=== PATIENT | female | born 1950 | race Caucasian/White ===

== ENCOUNTER 2018-02-22 08:34 | Inpatient (IN) | payer MEDICARE, OTHER ==
--- NOTE | 2018-02-14 21:14 | HP ---
HISTORY AND PHYSICAL: DATE OF ADMISSION/SURGERY: 02/22/18 DATE OF OFFICE VISIT: 02/12/18 SURGEON: Wendy Burk MD * (DICTATED BY TRISTON WILSON) PROCEDURE: Right total hip arthroplasty. CHIEF COMPLAINT: Right hip pain. HISTORY OF PRESENT ILLNESS: Ms. Mccarthy is a 68-year-old female with end-stage osteoarthritis of the right hip. She has failed conservative treatment and elected to proceed with a right total hip arthroplasty, which is scheduled for 02/22/[address] Burk. PAST MEDICAL HISTORY: High cholesterol, sleep apnea, and hypothyroidism. PAST SURGICAL HISTORY: Left total hip arthroplasty, partial thyroidectomy, tonsillectomy, and . CURRENT MEDICATIONS: 1. Vitamin C. 2. Vitamin D3. 3. Vitamin B12. 4. Levothyroxine 50 mcg daily. 5. Glucosamine and chondroitin. 6. Multivitamin. 7. Calcium with vitamin D. 8. Zinc. 9. Benadryl. ALLERGIES: TETRACYCLINE, FISH-DERIVED PRODUCTS, and CATS. FAMILY HISTORY: Coronary artery disease. SOCIAL HISTORY: She is a 68-year-old female. She lives alone. She does not smoke, use drugs, use occasional alcohol. REVIEW OF SYSTEMS: A complete 14-point review of systems was reviewed with the patient, positive for hypothyroidism. She denies history of DVT, PE, hepatitis , HIV or anesthesia problems PHYSICAL EXAMINATION GENERAL: She is well developed, well nourished, in no acute distress. VITAL SIGNS: She stands 5 feet 3 inches tall, weighs 180 pounds. Her blood pressure is 118/74 and heart rate 76. HEENT: Normocephalic, atraumatic. NECK: Supple. No palpable lymph nodes. PULMONARY: The lungs are clear to auscultation bilaterally. CARDIO: Regular rate and rhythm. Strong S1 and S2. ABDOMEN: Soft, nontender, and nondistended. NEUROLOGIC: Alert and oriented x3. MUSCULOSKELETAL: Right lower extremity, the skin is intact. There are no open wounds or abrasions. Walks with an antalgic type gait. Has decreased internal and external rotation of the right hip. 2+ dorsalis pedis pulses, intact sensation, and her lower extremity muscle group strengths are intact at 5/5. She has 0 degrees internal rotation, 30 degrees of external rotation. ASSESSMENT AND PLAN: Ms. Mccarthy is a 68-year-old female with severe end- stage osteoarthritis of the right hip. She has failed conservative treatment and elected to proceed with a right total hip arthroplasty, which is scheduled for 02/22/[address] Burk discussed the risks and benefits of the surgery on today's visit and all of her questions were answered. She will follow up with Dr. Burk 2 weeks after the surgery. TRISTON WILSON [id number]/CPS #: [id number] MTDD
[~2018-02-22 08:34] MED LIST: Buffered Lidocaine 0.9% SYRIN* 5 ML/SYR SYRINGE INTRADERM ONE
[2018-02-22] MEDS ORDERED: fentaNYL* 50 MCG/ML 2 ML VIAL (100 MCG VIAL) ONE (08:38)
[2018-02-22] MEDS ORDERED: Midazolam* 1 MG/ML 2 ML VIAL (2 MG) ONE (08:38)
--- OUTSIDE RECORDS SUMMARY | 2018-02-22 08:41 | XMS REPORT ---
:1950 External Reference #:[id number] Author Organization [facility] Address [address] [place] [address] [place] [address] Phone [phone] Care Team Providers Name Role Phone Lawson Mckeon MD Primary Care Physician Unavailable Payers Type Date Identification Numbers Payment Provider Subscriber Commercial Expires: Policy Number: [id number] sofatronicCory Meeta Aleman 2014 Group Number: [id number] PayID: [place] [address] [facility] Part B Policy Number: [id number] Medicare Meeta lAeman PayID: [id number] [address] [place] [address] Commercial Effective: Policy Number: Lifetime Benefit Meeta Isidro 2014 [id number] Solution Fabio Group Number: [id number] [address] [address] PayID: UMBERTO Sarmiento [id number] Problems Date Description Provider Status Onset: 02/01/2016 Dyssomnia Melissa Sutherland DNP, RN, Active GENERAL INTERNIST AND PHYSICIAN LEADER-BC Onset: 02/01/2016 Snoring Melissa Sutherland DNP, RN, Active GENERAL INTERNIST AND PHYSICIAN LEADER-BC Onset: 03/29/2016 Obstructive sleep apnea syndrome Melissa Sutherland DNP, RN, Active GENERAL INTERNIST AND PHYSICIAN LEADER-BC Onset: 01/08/2018 Localized, primary osteoarthritis Wendy Burk M.D. Active Onset: 01/08/2018 Localized, primary osteoarthritis Wendy Burk M.D. Active of the pelvic region and thigh Family History Date Family Member(s) Problem(s) Comments General Heart Disease General Cancer General arthritis Father to heart disease age 35 years [place] Mother age 68 after surgery for diverticulitis Siblings 1 believes to be healthy Social History Type Date Description Comments Marital Status Lives With Alone Occupation Retired School Psychologist Cigarette Use Never Smoked Cigarettes ETOH Use Currently consumes alcohol ETOH Use Occasionally consumes alcohol Smoking Patient has never smoked Recreational Drug Use Denies Drug Use Daily Caffeine Consumes on average 2 cups of regular coffee per day Exercise Type/Frequency Exercises sporadically Allergies, Adverse Reactions, Alerts Date Description Reaction Status Severity Comments 12/03/2014 Tetracycline active 11/28/2017 Fish-Derived Products Throat "bumpy" on active From eating fish inside 11/28/2017 Cat Red, watery eyes active from contact Medications Medication Date Status Form Strength Qnty SIG Indications Ordering Provider Amoxicillin 07/01/ Active Capsules 500mg 4 tablets 1 Unknown 2016 hour before dental work Vitamin C 01/28/ Active Tablets 500mg 1 by mouth Unknown 2015 every day Vitamin D3 01/28/ Active Tablets 1000Unit 1 by mouth Unknown 2015 every day Vitamin B12 01/28/ Active 1 by mouth Unknown 2015 every day Levothyroxine / Active Tablets 50mcg 1 by mouth Unknown Sodium 0000 every day Glucosamine & 00/ Active Packet 2520-9829- Unknown Chondroiti N 0000 800mg-mg-U nit Multi-Vitamin 0000/ Active Tablets 1 by mouth Unknown 0000 every day Calcium 0000/ Active Tablets 500-125mg- 1 by mouth Unknown 500/Vitamin D 0000 Unit every day Zinc Gluconate 00/ Active Tablets 50mg take one Unknown 0000 tab with meals as needed Benadryl / Active Tablets 25mg 1 by mouth Unknown Allergy 0000 as needed Pepcid Complete 01/28/ Hx Chewtabs 10800-165 as directed Unknown 2016 - mg 2015 Probiotic 01/28/ Hx Capsules 1 by mouth Unknown 2015 - every day 2017 Aspir-81 01/28/ Hx Tablets DR 81mg 1 by mouth Unknown 2015 - every day 2017 Joint Smoother 01/28/ Hx twice a day Unknown 2015 - by mouth 2015 Nystatin / Hx Cream [id number] topically Unknown 0000 - /GM twice a day 01/28/ as needed 2015 Aleve / Hx Tablets 220mg as needed Unknown 0000 - 2015 [place] 3 / Hx Unknown - 2017 Medications Administered in Office Medication Date Status Form Strength Qnty SIG Indications Ordering Provider Depomedrol Administered Injection Wendy 40MG Ramón Burk M.D. Vital Signs Date Vital Result Comment 02/12/2018 Height 63 inches 5'3" Weight 179.00 lb Heart Rate 76 /min BP Systolic 118 mmHg BP Diastolic 74 mmHg BMI (Body Mass Index) 31.7 kg/m2 01/22/2018 Height 63 inches 5'3" Heart Rate 72 /min BP Systolic Sitting 122 mmHg BP Diastolic Sitting 76 mmHg Respiratory Rate 16 /min Body Temperature 98.7 F Pain Level 6 intermittent/R hip 01/08/2018 Height 63 inches 5'3" Weight 180.00 lb Heart Rate 72 /min BP Systolic 134 mmHg BP Diastolic 82 mmHg BMI (Body Mass Index) 31.9 kg/m2 11/28/2017 Height 63 inches 5'3" Weight 179.25 lb Heart Rate 72 /min BP Systolic Sitting 130 mmHg Lue reg cuff BP Diastolic Sitting 74 mmHg Lue reg cuff Respiratory Rate 16 /min O2 % BldC Oximetry 95 % On Ra BMI (Body Mass Index) 31.7 kg/m2 09/18/2017 Heart Rate 73 /min BP Systolic 128 mmHg BP Diastolic 72 mmHg Respiratory Rate 16 /min Body Temperature 98.0 F Pain Level 4 11/02/2016 Weight 190.00 lb Heart Rate 72 /min occassional irreg rhythm BP Systolic Sitting 128 mmHg BP Diastolic Sitting 72 mmHg Respiratory Rate 14 /min 07/04/2016 Height 62 inches 5'2" Weight 186.00 lb Heart Rate 80 /min BP Systolic Sitting 130 mmHg BP Diastolic Sitting 72 mmHg Respiratory Rate 14 /min O2 % BldC Oximetry 97 % BMI (Body Mass Index) 34.0 kg/m2 05/30/2016 Height 62 inches 5'2" Weight 187.00 lb Heart Rate 71 /min BP Systolic Sitting 126 mmHg BP Diastolic Sitting 74 mmHg Respiratory Rate 15 /min O2 % BldC Oximetry 97 % BMI (Body Mass Index) 34.2 kg/m2 03/29/2016 Height 64 inches 5'4" Weight 188.00 lb Heart Rate 72 /min BP Systolic 124 mmHg BP Diastolic 78 mmHg Body Temperature 14.0 F O2 % BldC Oximetry 98 % BMI (Body Mass Index) 32.3 kg/m2 02/01/2016 Height 64 inches 5'4" Weight 188.12 lb Heart Rate 76 /min BP Systolic Sitting 132 mmHg BP Diastolic Sitting 74 mmHg Respiratory Rate 16 /min O2 % BldC Oximetry 97 % BMI (Body Mass Index) 32.3 kg/m2 Neck Circumference in inches 14 02/23/2015 Height 63 inches 5'3" Weight 185.00 lb Pain Level 7 BMI (Body Mass Index) 32.8 kg/m2 01/19/2015 Height 63 inches 5'3" Weight 185.00 lb Pain Level 2 BMI (Body Mass Index) 32.8 kg/m2 12/03/2014 Height 63 inches 5'3" Weight 187.00 lb Heart Rate 76 /min BP Systolic 120 mmHg BP Diastolic 70 mmHg Pain Level 8 BMI (Body Mass Index) 33.1 kg/m2 Results Test Date Test Result H/L Range Note Inr/Protime 02/12/2018 Inr 0.86 0.77-1.02 1 Laboratory test finding 02/12/2018 Partial Thrombo 28.1 seconds 26.0- 36.3 1, 2 Time PTT Urinalysis Profile 02/12/2018 Urine Color Yellow 1 Urine Appearance Clear 1 Urine Specific [place] 1.011 1.010-1.030 1 Urine pH 5.0 5-9 1 Urine Urobilinogen Negative Negative 1 Urine Ketones Negative Negative 1 Urine Protein Negative Negative 1 Urine Leukocytes Negative Negative 1 Urine Blood Negative Negative 1 Urine Nitrite Negative Negative 1 Urine Bilirubin Negative Negative 1 Urine Glucose Negative Negative 1 Type & Screen 02/12/2018 Patient Blood Type O Positive 1 Antibody Screen NEGATIVE 1 Urine Culture And Sensitivities 02/12/2018 Urine Culture SEE RESULT BELOW 1, 3 1 AA 02/22 2 AA 02/22 3 SEE RESULT BELOW Name: MEETA ALEMAN : [address]: Wendy Burk MD Acct: [id number] Unit: [id number] AGE: 68 Location: [facility] Re02/12/18 SEX: F Status: REG REF SPEC: [id number] LORNA: 02/12/18-[address]: Wendy Burk MD REQ: [id number] RECD: 02/12/18 STATUS: COMP _ SOURCE: URINE SPDESC: ORDERED: Urine Culture COMMENTS: MARISOL 02/22 QUERIES: Urine Source: Clean Catch Procedure Result Reported Site Urine Culture Final 02/13/18- 1354 ML No Growth (<1,000 CFU/mL) * ML - Main Lab . END OF REPORT DEPARTMENT OF PATHOLOGY, [address] [place] [address] John Cline M.D. Director [facility] # [id number] Procedures Date CPT Code Description Status 01/08/2018 27163 Inject/Drain Joint/Bursa Major W/O US Completed 02/22/2016 08410 Sleep Study Unattended,HRT Rate,Oxygen Sat,Resp Completed Effort/Airflow 01/11/2016 01936 Holter Monitor Review (24 hr)dr review & interp only Completed 01/05/2016 94524 ECG Monitor/Recording W/Visual Superimposition Scanning Completed 09/03/2012 49504 Rad Exam; Both Knees, Standing Ap Completed 09/03/2012 93568 Rad Shoulder Comp, Min. 2 Views Completed 03/16/2011 04541 Xray Knee 3 Views Completed 03/16/2011 43790 Xray Knee 3 Views Completed 10/11/2010 89386 ECHO Stress Test Incl Perf Contiuous ekg Monitoring Completed W/Phys Superv 07/27/2007 77728 EKG, Interpretation Only Completed 07/27/2007 73151 EKG, Interpretation Only Completed Encounters Type Date Location Provider CPT E/M Dx Office Visit 01/22/2018 [facility] Wendy Burk M.D. 28798 M25.551 3:30p Of [place] M16.11 M25.561 M25.562 M25.461 M25.462 M17.0 Office Visit 01/08/2018 2:30p [facility] Of Wendy Burk M.D. 67572 M25.551 C.MLena M16.11 M25.561 M25.562 M25.461 M25.462 M17.0 M17.12 Office Visit 11/28/2017 9:15a [facility] Melissa Sutherland, 90481 G47.33 Services Of Antonella SINGH, RN, [facility]-BC G47.00 Z68.31 Office Visit 09/18/2017 1:00p [facility] Of Patrick Blackburn, 71742 M16.11 [place] MCNAIR Office Visit 11/02/2016 10:00a [facility] Melissa Suthreland, 91917 G47.33 Services Of [facility] FRANCISCO, RN, GENERAL INTERNIST AND PHYSICIAN LEADER-BC G47.00 E66.9 Office Visit 07/04/2016 10:15a [facility] Melissa Sutherland, 09699 G47.33 Services Of [facility] FRANCISCO, RN, GENERAL INTERNIST AND PHYSICIAN LEADER-BC G47.00 Office Visit 05/30/2016 10:00a [facility] Melissa Sutherland, 28617 G47.33 Services Of [facility] FRANCISCO, RN, GENERAL INTERNIST AND PHYSICIAN LEADER-BC G47.00 Office Visit 03/29/2016 10:00a [facility] Melissa Sutherland, 20205 G47.33 Services Of [facility] SEVERIANO SINGH, GENERAL INTERNIST AND PHYSICIAN LEADER-SULLY G47.14 E66.9 Office Visit 02/01/2016 1:15p [facility] Melissa Sutherland, 27449 R06.83 Services Of [facility] SEVERIANO SINGH, GENERAL INTERNIST AND PHYSICIAN LEADER-BC G47.10 G47.9 R00.2 Office Visit 02/23/2015 1:30p [facility] Of Adriano Falk M.D. 78750 715.95 C.M.A. Office Visit 01/19/2015 12:45p [facility] Of Estela Pate, 79082 715.95 C.M.A. RPA-C Office Visit 12/03/2014 11:00a [facility] Of Adriano Falk M.D. 90526 715.95 C.M.A. 715.35 Office Visit 09/03/2012 8:00a [facility] Of Adriano Falk M.D. 33758 716.96 C.M.A. 726.10 Office Visit 03/16/2011 2:00p [facility] Of Adriano Falk M.D. 15711 716.96 C.M.A. Office Visit 10/11/2010 8:30a [facility] Nelson Turk, 92516 425.9 Lucia 786.50 785.1 271.3 Plan of Care Future Appointment(s):03/07/2018 11:15 am - Wendy Burk M.D. at [facility].02/22/2018 11:30 am - Thanh Mujica PA-C at [facility].02/22/2018 11:30 am - TRISTON Zuniga at [facility].02/22/2018 11:30 am - Wendy Burk M.D. at [facility].11/28/2018 9:15 am - Melissa Sutherland DNP, RN, GENERAL INTERNIST AND PHYSICIAN LEADER-BC at [facility]02/12/2018 - Wendy Burk M.D.M25.551 Pain in right hipFollow up:Follow up: 2 weeks after wyxilpjH13.11 Unilateral primary osteoarthritis, right hip
--- OUTSIDE RECORDS SUMMARY | 2018-02-22 08:41 | XMS REPORT ---
:1950 External Reference #:[id number] [facility] Address [address] [place] [address] [place] [address] Phone [phone] Care Team Providers Name Role Phone Lawson Mckeon MD Primary Care Physician Unavailable Payers Type Date Identification Numbers Payment Provider Subscriber Commercial Expires: Policy Number: [id number] Team-MatchCory Jessenia Mccarthy 2014 Group Number: [id number] PayID: [place] [address] [facility] Part B Policy Number: [id number] Medicare Jessenia Mccarthy PayID: [id number] [address] [place] [address] Commercial Effective: Policy Number: Lifetime Benefit Jessenia Isidro 2014 [id number] Solution Fabio Group Number: [id number] [address] [address] PayID: [place]MBERT[place] Sarmiento [phone] Problems Date Description Provider Status Onset: 02/01/2016 Dyssomnia Melissa Sutherland DNP, RN, Active [employer] BANKER-BC Onset: 02/01/2016 Snoring Melissa Sutherland DNP, RN, Active [employer] BANKER-BC Onset: 03/29/2016 Obstructive sleep apnea syndrome Melissa Sutherland DNP, RN, Active [employer] AC[employer]ISITIONS BANKER-BC Onset: 01/08/2018 Localized, primary osteoarthritis Wendy Burk M.D. Active Onset: 01/08/2018 Localized, primary osteoarthritis Wendy Burk M.D. Active of the pelvic region and thigh Family History Date Family Member(s) Problem(s) Comments General Heart Disease General Cancer General arthritis Father to heart disease age 35 years [place] Mother age 68 after surgery for diverticulitis [...] every day Glucosamine & 00/ Active Packet 9398-9759- Unknown Chondroiti N 0000 800mg-mg-U nit Multi-Vitamin [...] by mouth 2015 Nystatin / Hx Cream 280774Tjzc topically Unknown 0000 - /GM twice a day 01/28/ as needed 2015 Aleve / Hx Tablets 220mg as needed Unknown 0000 - 2015 D [place] 3 / Hx Unknown - 2017 Medications [...] BMI (Body Mass Index) 33.1 kg/m2 Results Description No Information Procedures Date CPT Code Description Status 01/08/2018 96505 Inject/Drain Joint/Bursa Major W/O US Completed 02/22/2016 60003 Sleep Study Unattended,HRT Rate,Oxygen Sat,Resp Completed Effort/Airflow 01/11/2016 89423 Holter Monitor Review (24 hr)dr review & interp only Completed 01/05/2016 29690 ECG Monitor/Recording W/Visual Superimposition Scanning Completed 09/03/2012 68891 Rad Exam; Both Knees, Standing Ap Completed 09/03/2012 43542 Rad Shoulder Comp, Min. 2 Views Completed 03/16/2011 13680 Xray Knee 3 Views Completed 03/16/2011 70462 Xray Knee 3 Views Completed 10/11/2010 30626 ECHO Stress Test Incl Perf Contiuous ekg Monitoring Completed W/Phys Superv 07/27/2007 71577 EKG, Interpretation Only Completed 07/27/2007 58509 EKG, Interpretation Only Completed Encounters Type Date Location Provider CPT E/M Dx Office Visit 01/22/2018 [facility] Wendy Burk M.D. 54332 M25.551 3:30p Of [facility] M16.11 M25.561 M25.562 M25.461 M25.462 M17.0 Office Visit 01/08/2018 2:30p [facility] Of Wendy Burk M.D. 77965 M25.551 C.M.ACory M16.11 M25.561 M25.562 M25.461 M25.462 M17.0 M17.12 Office Visit 11/28/2017 9:15a [facility] Melissa Sutherland, 99808 G47.33 Services Of [facility] SEVERIANO SINGH, [employer] ACQUISITIONS BANKER-BC G47.00 Z68.31 Office Visit 09/18/2017 1:00p [facility] Of Patrick Blackburn, 16224 M16.11 [place] MCNAIR Office Visit 11/02/2016 10:00a [facility] Sleep Melissa Sutherland, 27575 G47.33 Services Of [facility] SEVERIANO SINGH, [employer] ACQUISITIONS BANKER-SULLY G47.00 E66.9 Office Visit 07/04/2016 10:15a [facility] Sleep Melissa Sutherland, 83583 G47.33 Services Of [facility] SEVERIANO SINGH, [employer]QUISITIONS BANKER-SULLY G47.00 Office Visit 05/30/2016 10:00a [facility] Sleep Melissa Sutherland, 35165 G47.33 Services Of [facility] SEVERIANO SINGH, [employer] ACQUISITIONS BANKER-SULLY G47.00 Office Visit 03/29/2016 10:00a [facility] Sleep Melissa Sutherland, 88926 G47.33 Services Of [facility] SEVERIANO SINGH, [employer] ACQUISITIONS BANKER-SULLY G47.14 E66.9 Office Visit 02/01/2016 1:15p [facility] Sleep Melissa Sutherland, 97474 R06.83 Services Of [facility] SEVERIANO SINGH, [employer] ACQUISITIONS BANKER-SULLY G47.10 G47.9 R00.2 Office Visit 02/23/2015 1:30p [facility] Of Adriano Falk M.D. 87884 715.95 C.M.A. Office Visit 01/19/2015 12:45p [facility] Of Estela Pate, 20406 715.95 C.M.ACory RPA-C Office Visit 12/03/2014 11:00a [facility] Adriano Falk M.D. 27351 715.95 C.M.A. 715.35 Office Visit 09/03/2012 8:00a [facility] Adriano Falk M.D. 54753 716.96 C.M.A. 726.10 Office Visit 03/16/2011 2:00p [facility] Adriano Falk M.D. 53869 716.96 C.M.A. Office Visit 10/11/2010 8:30a [facility] Nelson Blackmon [place], 13616 425.9 Lucia 786.50 785.1 271.3 Plan of Care Future Appointment(s):03/07/2018 11:15 am - Wendy Burk M.D. at [facility]02/22/2018 11:30 am - Thanh Mujica PA-C at [facility]02/22/2018 11:30 am - TRISTON Zuniga at [facility]02/22/2018 11:30 am - Wendy Burk M.D. at [facility]11/28/2018 9:15 am - Melissa Sutherland DNP, RN, [employer] BANKER-BC at [facility]02/12/2018 - Wendy Burk M.D.M25.551 Pain in right hipFollow up:Follow up: 2 weeks after chgewumR40.11 Unilateral primary osteoarthritis, right hip
--- OUTSIDE RECORDS SUMMARY | 2018-02-22 08:42 | XMS REPORT ---
:1950 External Reference #:[id number] Author Organization [facility] Address [address] [place] [address] Phone [phone] Care Team Providers Name Role Phone Lawson Mckeon MD Care Team Information Seamless Tube Roller Unavailable Lawson Mckeon MD Primary Care Physician Unavailable Payers Type Date Identification Numbers Payment Provider Subscriber Medicare Primary Policy Number: [id number] Medicare [place] PayID: [id number] [address] [place] [address] Commercial Effective: Policy Number: Lifetime Sunil Isidro 2014 [id number] [employer] Group Number: [id number] [address] [address] [facility]: [facility] [id number] Problems Date Description Provider Status Onset: 04/16/2011 Hypothyroidism Lawson Mckeon M.D. Active Onset: 08/10/2012 Hyperlipidemia Lawson Mckeon M.D. Active Onset: 08/10/2012 Dysplasia of cervix Lawson Mckeon M.D. Active Onset: 10/06/2014 History of polyp of colon Lawson Mckeon M.D. Active Onset: 07/14/2015 Mixed hyperlipidemia Lawson Mckeon M.D. Active Onset: 12/01/2015 Palpitations Lawson Mckeon M.D. Active Onset: 12/01/2015 Obstructive sleep apnea syndrome Lawson Mckeon M.D. Active Onset: 04/01/2016 Degenerative joint disease Lawson Mckeon M.D. Active involving multiple joints Onset: 01/25/2018 Adult health examination Lawson Mckeon M.D. Active Onset: 06/04/2011 Urinary tract infectious disease Yamileth Alva M.D. Inactive Inactive: 04/02/2016 Onset: 10/06/2014 Disorder of skin AND/OR Lawson Mckeon M.D. Inactive subcutaneous tissue Inactive: 04/02/2016 Onset: 02/23/2015 Acute conjunctivitis Lawson Mckeon M.D. Inactive Inactive: 04/02/2016 Onset: 02/23/2015 Arthralgia of the pelvic region and Lawson Mckeon M.D. Inactive thigh Inactive: 04/02/2016 Onset: 07/14/2015 Retinal vascular occlusion Lawson Mckeon M.D. Inactive Inactive: 04/02/2016 Onset: 11/11/2015 Disorder of thyroid gland Lawson Mckeon M.D. Inactive Inactive: 04/02/2016 Onset: 12/01/2015 History of dysplasia of cervix Lawson Mckeon M.D. Inactive Inactive: 04/02/2016 Onset: 12/01/2015 Abnormal glucose level Lawson Mckeon M.D. 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[employer] , retired Environmental Hazards Not exposed to any environmental hazards Cigarette Use Nonsmoker ETOH Use Etoh: Occ Smoking Patient has never smoked Daily Caffeine Consumes on average 2 cups of coffee per day Exercise Type/Frequency Current Exercises regularly Allergies, Adverse Reactions, Alerts Date Description Reaction Status Severity Comments 04/23/2007 Tetracycline active GI Upset 12/16/2008 Fish COOKED FISH ONLY active Mild to Moderate 10/06/2014 Hay Fever active 10/06/2014 Cats active Medications Medication Date Status Form Strength Qnty SIG Indications Ordering Provider Shingrix 01/25 Active Suspension 50mcg 1unit one Rec s injectionLinda, repeat in M.DCory 2-6 months Vitamin D3 04/01 Active Capsules 1000Unit once daily Lawson FCory High Potency Lucia Mckeon Aspirin 04/01 Active Tablets 81mg 1 by mouth . every day Lucia Mckeon Zinc Gluconate 04/01 Active Tablets 50mg once daily Cory as needed Linda, for cold M.D. symptoms Calcium-Vitami 04/01 Active Tablets 600-125mg once by Lawson Blackmon n -Unit mouth daily Lucia Mckeon Vitamin B-12 04/01 Active Tablets Sub 5000mcg once daily Lawson Lucia Mckeon Synthroid 08/10 Active Tablets 50mcg 90tab Take 1 . s Tablet By Linda, Mouth Every M.D. Day Glucosamine/Ch 10/24 Active 1 by mouth 715.90 Family ondroitin/MSM /2007 twice a day [facility] Multi-Vitamin/ Active Tablets 1 PO qd Unknown Minerals /0000 Vitamin C Active Tablets 500mg 1 by mouth Unknown /0000 once a day Benadryl Active Tablets 25mg 1 by mouth Unknown Allergy /0000 as neededfor allergy symptoms Acidophilus Active Capsules qd Unknown Probiotic /0000 Amoxicillin Active Tablets 500mg 4 tablets Unknown /0000 prior to dental procedures [place] 3-6-9 Active Capsules qd Unknown Complex /0000 Aspirin Ec 04/[address] 325mg 1 by mouth as needed Linda, - for pain M.D. 01/25 Vitamin D3 11/30 Hx Tablets qd . Linda, - M.D. 04/01 Zostavax 07/14 Hx Solution [id number] 1dose inject Rec 0.65ML Linda, - M.D. 04/01 Erythromycin 02/27 Hx Ointment 5mg/GM 3.500 Apply 1 gm application Linda, - into the M.D. 07/14 eyelid of affected eye 3 times perday for infection Tobramycin 02/23 Hx Solution 0.3% 5ml instill 1 drop into Linda, - affected M.D. 03/02 eye every hours for infection for 3-4 days Nystatin 10/06 Hx Powder [id number] 1bott apply twice t/GM le a day as Linda, - needed M.D. 07/14 Ciprofloxacin 08/17 Hx Solution 0.3% 1bott two drops 372.00 Maria Esther HCL /2013 le in affected [facility], - eye every [employer] 08/16 four hours /2014 for two days then every six hours for 3 days Amoxicillin 08/17 Hx Tablets 875mg 20tab 1 po bid x 461.8 Maria Esther s 10 days Aura, - [employer] 08/16 Zolpidem 08/10 Hx Tablets ER 6.25mg 30tab 1 -2po qhs Lawson F. Tartrate ER /2012 s Linda, - M.D. 08/17 Bactrim DS 10/17 Hx Tablets 800-160mg 12tab 1 po bid 599.0 Radha L. s please Lenore, - use this M.D. 08/10 prescriptio /2012 n of 12 pills instead of the 6 pill prescriptio n Cipro 06/04 Hx Tablets 250mg 10tab 1 po bid 599.0 Yamileth Mclean s for 5 days Artie, - M.D. 06/25 Physical 02/24 Hx treatment Lawson F. and Linda, - evaluation M.D. 06/04 strengthen ing and pool exercise Augmentin 08/04 Hx Tablets 500-125mg 20tab 1 bid with Brittnee s food x 10d Tarsha, - [employer] 09/10 Bactroban 07/28 Hx Ointment 2% 30mg apply tid 709.9 to affected Tarsha, - area for [employer] 09/10 3-5d /2010 Doxycycline 12/16 Hx Capsules 100mg 2caps 1 po bid Lawson F. Monohydrate /2008 Linda - M.D. 08/03 Synthroid 05/27 Hx Tablets 25mcg 90tab 1 po qd Lawson F. /2007 s Linda - M.DCory 08/10 Calcium-Vitami Hx Tablets 500-125 Unknown n D /0000 - 04/01 Flaxseed Hx Misc Unknown /0000 - 09/10 Soy Protein Hx Unknown /0000 - 09/10 Zinc 00/00 Hx Tablets 50mg 1 by mouth Unknown /0000 every day - as needed 04/01 Pepcid 00 Hx Chewtabs 10-800-16 1 by mouth Unknown / 5mg as needed - 11/30 [address] 500mg 1 by mouth Unknown /0000 as needed - for pain 04/01 Vitamin B12 0000 Hx Tablets 5000mcg every day Unknown /0000 - 01/25 Immunizations CPT Code Status Date Vaccine Lot # [id number] Given 05/03/2017 High-Dose, Influenza Virus Vacccine-fluzone 65 and older 33364 Given 06/02/2016 Zostivax 62526 Given 05/03/2016 High-Dose, Influenza Virus Vacccine-fluzone 65 and older 02918 Given 04/01/2016 Pneumococcal Immunization [id number] 38612 Given 10/06/2014 Pneumococcal Conjugate Vacc-13 [id number] 24554 Given 05/04/2011 DO Not Use Split Influenza Virus Vaccine 52326 Given 12/16/2008 Tdap Tetanus, W Pertussis [id number] 65654 Given 05/19/2008 DO Not Use Split Influenza Virus Vaccine 18560 Given 05/26/1999 Tetanus And Diptheria Adult Preservative Free >7Yrs Vital Signs Date Vital Result Comment 01/25/2018 BP Systolic 110 mmHg BP Diastolic 60 mmHg Heart Rate 74 /min Body Temperature 98.6 F Respiratory Rate 16 /min Height 62.5 inches 5'2.50" Weight 174.00 lb BMI (Body Mass Index) 31.3 kg/m2 04/01/2016 BP Systolic 126 mmHg BP Diastolic 82 mmHg Heart Rate 64 /min Body Temperature 97.9 F Respiratory Rate 18 /min Height 62.5 inches 5'2.50" Weight 186.00 lb BMI (Body Mass Index) 33.5 kg/m2 12/01/2015 BP Systolic 114 mmHg BP Diastolic 64 mmHg Heart Rate 72 /min Body Temperature 98.1 F Respiratory Rate 16 /min Height 63.25 inches 5'3.25" Weight 180.00 lb BMI (Body Mass Index) 31.6 kg/m2 07/14/2015 BP Systolic 120 mmHg BP Diastolic 78 mmHg Heart Rate 78 /min Body Temperature 98.2 F Respiratory Rate 16 /min Height 63.25 inches 5'3.25" Weight 185.25 lb BMI (Body Mass Index) 32.6 kg/m2 02/23/2015 BP Systolic 124 mmHg BP Diastolic 82 mmHg Heart Rate 70 /min Body Temperature 97.2 F Respiratory Rate 16 /min Height 63.25 inches 5'3.25" Weight 188.00 lb BMI (Body Mass Index) 33.0 kg/m2 10/06/2014 BP Systolic 120 mmHg BP Diastolic 70 mmHg Heart Rate 76 /min Body Temperature 98.1 F Respiratory Rate 17 /min Height 63.25 inches 5'3.25" Weight 193.50 lb BMI (Body Mass Index) 34.0 kg/m2 08/17/2013 BP Systolic 140 mmHg BP Diastolic 70 mmHg Heart Rate 88 /min Body Temperature 98.9 F Respiratory Rate 16 /min Height 63 inches 5'3" Weight 195.00 lb BMI (Body Mass Index) 34.5 kg/m2 08/10/2012 BP Systolic 120 mmHg BP Diastolic 70 mmHg Heart Rate 72 /min Body Temperature 98.4 F Height 63 inches 5'3" Weight 190.00 lb BMI (Body Mass Index) 33.7 kg/m2 10/18/2011 BP Systolic 140 mmHg BP Diastolic 76 mmHg Heart Rate 84 /min Body Temperature 98.9 F Height 63 inches 5'3" Weight 194.00 lb BMI (Body Mass Index) 34.4 kg/m2 06/25/2011 BP Systolic 136 mmHg BP Diastolic 66 mmHg Heart Rate 78 /min Body Temperature 99.0 F Height 63 inches 5'3" 06/04/2011 BP Systolic 120 mmHg BP Diastolic 74 mmHg Heart Rate 84 /min Body Temperature 99.1 F Height 63 inches 5'3" Weight 183.00 lb BMI (Body Mass Index) 32.4 kg/m2 02/24/2011 BP Systolic 130 mmHg BP Diastolic 78 mmHg Heart Rate 76 /min Body Temperature 98.5 F Height 63 inches 5'3" Weight 180.00 lb BMI (Body Mass Index) 31.9 kg/m2 09/10/2010 BP Systolic 132 mmHg BP Diastolic 82 mmHg Heart Rate 88 /min Height 63 inches 5'3" Weight 186.00 lb BMI (Body Mass Index) 32.9 kg/m2 07/28/2010 BP Systolic 138 mmHg BP Diastolic 80 mmHg Heart Rate 80 /min Body Temperature 98.5 F Height 63 inches 5'3" Weight 189.00 lb BMI (Body Mass Index) 33.5 kg/m2 08/03/2009 BP Systolic 102 mmHg BP Diastolic 74 mmHg Heart Rate 90 /min Body Temperature 98.3 F Height 63 inches 5'3" Weight 184.00 lb BMI (Body Mass Index) 32.6 kg/m2 12/16/2008 BP Systolic 126 mmHg BP Diastolic 70 mmHg Heart Rate 76 /min Body Temperature 99.5 F Height 63 inches 5'3" Weight 181.00 lb BMI (Body Mass Index) 32.1 kg/m2 05/27/2008 BP Systolic 110 mmHg BP Diastolic 72 mmHg Heart Rate 72 /min Body Temperature 99.0 F Height 63 inches 5'3" Weight 174.00 lb BMI (Body Mass Index) 30.8 kg/m2 04/23/2007 BP Systolic 122 mmHg BP Diastolic 70 mmHg Heart Rate 80 /min Height 63 inches 5'3" Weight 168.00 lb BMI (Body Mass Index) 29.8 kg/m2 10/24/2006 BP Systolic 112 mmHg BP Diastolic 66 mmHg Heart Rate 84 /min Height 63 inches 5'3" Weight 166.00 lb BMI (Body Mass Index) 29.4 kg/m2 Results Test Date Test Result H/L Range Note Comprehensive Metabolic Prof 01/16/2018 Sodium 138 mEq/L 134-149 Potassium 4.8 mEq/L 3.6-5.5 Chloride 100 mEq/L 94-112 Carbon Dioxide 25 mEq/L 21-32 Glucose 125 mg/dL High 70-105 1 BUN 22 mg/dL 6-26 Creatinine 0.8 mg/dL 0.6-1.4 BUN/Creat Ratio 27.5 CALC 8.0-36.0 Calcium 10.2 mg/dL 8.6-10.2 Total Protein 7.1 g/dL 6.4-8.3 Albumin 4.8 g/dL 3.8-5.5 Globulin 2.3 g/dL 2.0-4.8 A/G Ratio 2.1 CALC 0.6-2.3 Alk. Phosphatase 54 U/L 30-110 Alt (SGPT) 20 U/L 7-35 Ast (Sgot) 18 U/L 5-34 Total Bilirubin 0.5 mg/dL 0.2-1.3 GFR Non- >60 ml/min/1.73m^ >=60 GFR >60 ml/min/1.73m^ >=60 Lipid Profile 01/16/2018 Cholesterol 220 mg/dL High 120-200 Triglycerides 58 mg/dL 30-200 HDL Cholesterol 79 mg/dL 30-85 LDL (Calculated) 129 CALC 0-129 VLDL Cholesterol 12 mg/dL 0-50 HDL Risk Factor 2.8 CALC 0.0-4.4 Laboratory test finding 01/16/2018 TSH 2.39 mIU/L 0.50-6.00 Free T4 1.15 ng/dL 0.75-1.54 CBC Electronic Fma 01/16/2018 WBC 6.1 x10^3/UL 4.0-10.0 RBC 4.76 x10^6/UL 3.93-6.00 HGB 14.6 g/dL 12.0-17.0 HCT 44 % 35-50 MCV 92.9 fL 80.0-95.0 MCH 30.7 pg 25.6-32.2 MCHC 33.0 g/dL 32.2-36.0 RDW-CV 12.6 % 11.6-14.4 PLT 217 x10^3/UL 163-400 MPV 11.2 fL 9.4-12.4 Roberto# 4.54 x10^3/UL 1.56-6.13 Lymph# 0.87 x10^3/UL Low 1.18-3.74 [place]# 0.52 x10^3/UL 0.24-0.82 Eos # 0.1 x10^3/UL 0.0-0.5 Baso # 0.06 x10^3/UL 0.01-0.08 Roberto% 74.8 % High 34.0-70.0 Lymph % 14.4 % Low 20.0-52.0 [place]% 8.6 % 5.0-12.0 Eos% 1.0 % 0.7-7.0 Baso% 1.0 % 0.1-1.2 Ict-Hemoccult (MCR)Fma Screeni 04/19/2016 Ict Hemoccult (1) 04/08/16 neg Ict Hemoccult-(2) 04/10/16 neg Ict-Hemoccult (3) 04/11/16 neg Complete Blood Count 04/01/2016 WBC 4.1 x10^3/UL 3.6-9.6 RBC 4.55 x10^6/UL 3.90-5.70 HGB 14.2 g/dL 12.1-17.2 HCT 42 % 36-50 MCV 92.0 fL 82.2-97.4 MCH 31.3 pg 27.6-33.3 MCHC 34.0 g/dL 33.0-35.5 RDW 13.7 % 11.6-13.7 PLT 185 x10^3/UL 150-400 MPV 8.6 fL 7.4-10.4 Gran # 3.0 x10^3/UL 1.5-7.2 Lymph# 1.0 x10^3/UL 0.7-4.9 [place]# 0.1 x10^3/UL 0.1-0.9 Gran % 69.2 % 42.2-75.2 Lymph % 26.4 % 20.5-51.1 [place]% 4.4 % 1.7-9.3 Comprehensive Metabolic Prof 04/01/2016 Sodium 139 mEq/L 134-149 Potassium 4.9 mEq/L 3.6-5.5 Chloride 102 mEq/L 94-112 Carbon Dioxide 26 mEq/L 21-32 Glucose 116 mg/dL High 70-105 2 BUN 13 mg/dL 6-26 Creatinine 0.8 mg/dL 0.6-1.4 BUN/Creat Ratio 16.3 CALC 8.0-36.0 Calcium 9.6 mg/dL 8.6-10.2 Total Protein 7.0 g/dL 6.4-8.3 Albumin 4.5 g/dL 3.8-5.5 Globulin 2.5 g/dL 2.0-4.8 A/G Ratio 1.8 CALC 0.6-2.3 Alk. Phosphatase 54 U/L 30-110 Alt (SGPT) 29 U/L 7-35 Ast (Sgot) 20 U/L 5-34 Total Bilirubin 0.4 mg/dL 0.2-1.3 GFR Non- >60 ml/min/1.73m^ >=60 GFR >60 ml/min/1.73m^ >=60 Lipid Profile 04/01/2016 Cholesterol 217 mg/dL High 120-200 Triglycerides 101 mg/dL 30-200 HDL Cholesterol 57 mg/dL 30-85 LDL (Calculated) 140 CALC High 0-129 VLDL Cholesterol 20 mg/dL 0-50 HDL Risk Factor 3.8 CALC 0.0-4.4 Laboratory test finding 04/01/2016 TSH 3.19 mIU/L 0.50-6.00 3 Free T4 1.58 ng/dL High 0.75-1.54 4 Vitamin D25 47 30-100 Ua - Non Micro (a) 04/01/2016 Appearance clear Color yellow Glucose, Urine (Fma/CMC/CTX) neg Bilirubin neg Ketones neg SP Grav 1.020 Blood neg PH 5.0 Protein neg Urobil 0.2 Nitrite neg Leukocytes (a/[facility]/Centrex) neg Lipid Profile 11/23/2015 Cholesterol 221 mg/dL High 120-200 Triglycerides 122 mg/dL 30-200 HDL Cholesterol 54 mg/dL 30-85 LDL (Calculated) 143 CALC High 0-129 VLDL Cholesterol 24 mg/dL 0-50 HDL Risk Factor 4.1 CALC 0.0-4.4 Laboratory test finding 11/23/2015 Free T4 1.13 ng/dL 0.75-1.54 TSH 3.60 mIU/L 0.50-6.00 Comprehensive Metabolic Prof 11/23/2015 Sodium 136 mEq/L 134-149 Potassium 4.6 mEq/L 3.6-5.5 Chloride 101 mEq/L 94-112 Carbon Dioxide 26 mEq/L 21-32 Glucose 130 mg/dL High 70-105 5 BUN 21 mg/dL 6-26 Creatinine 0.9 mg/dL 0.6-1.4 BUN/Creat Ratio 23.3 CALC 8.0-36.0 Calcium 10.0 mg/dL 8.6-10.2 Total Protein 6.9 g/dL 6.4-8.3 Albumin 4.7 g/dL 3.8-5.5 Globulin 2.2 g/dL 2.0-4.8 A/G Ratio 2.1 CALC 0.6-2.3 Alk. Phosphatase 55 U/L 30-110 Alt (SGPT) 23 U/L 7-35 Ast (Sgot) 20 U/L 5-34 Total Bilirubin 0.5 mg/dL 0.2-1.3 GFR Non- >60 ml/min/1.73m^ >=60 GFR >60 ml/min/1.73m^ >=60 Complete Blood Count 11/23/2015 WBC 7.5 x10^3/UL 3.6-9.6 RBC 4.67 x10^6/UL 3.90-5.70 HGB 14.4 g/dL 12.1-17.2 HCT 43 % 36-50 MCV 92.0 fL 82.2-97.4 MCH 30.9 pg 27.6-33.3 MCHC 33.6 g/dL 33.0-35.5 RDW 14.1 % High 11.6-13.7 PLT 194 x10^3/UL 150-400 MPV 8.9 fL 7.4-10.4 Gran # 6.3 x10^3/UL 1.5-7.2 Lymph# 0.9 x10^3/UL 0.7-4.9 [place]# 0.3 x10^3/UL 0.1-0.9 Gran % 82.5 % High 42.2-75.2 Lymph % 12.9 % Low 20.5-51.1 [place]% 4.6 % 1.7-9.3 Comprehensive Metabolic Prof 07/14/2015 Sodium 140 mEq/L 134-149 Potassium 4.9 mEq/L 3.6-5.5 Chloride 102 mEq/L 94-112 Carbon Dioxide 21 mEq/L 21-32 Glucose 108 mg/dL High 70-105 BUN 20 mg/dL 6-26 Creatinine 0.7 mg/dL 0.6-1.4 BUN/Creat Ratio 28.6 CALC 8.0-36.0 Calcium 10.2 mg/dL 8.6-10.2 Total Protein 7.3 g/dL 6.4-8.3 Albumin 4.6 g/dL 3.8-5.5 Globulin 2.7 g/dL 2.0-4.8 A/G Ratio 1.7 CALC 0.6-2.3 Alk. Phosphatase 59 U/L 30-110 Alt (SGPT) 24 U/L 7-35 Ast (Sgot) 34 U/L 5-34 Total Bilirubin 0.4 mg/dL 0.2-1.3 GFR Non- >60 ml/min/1.73m^ >=60 GFR >60 ml/min/1.73m^ >=60 Lipid Profile 07/14/2015 Cholesterol 250 mg/dL High 120-200 Triglycerides 96 mg/dL 30-200 HDL Cholesterol 78 mg/dL 30-85 LDL (Calculated) 153 CALC High 0-129 VLDL Cholesterol 19 mg/dL 0-50 HDL Risk Factor 3.2 CALC 0.0-4.4 CBC Electronic (a) 07/14/2015 WBC 5.6 3.6-9.6 RBC 4.38 3.90-5.70 Hemoglobin (Fma/CMC/CTX) 13.1 g/dL 12.1 - 17.2 Hematocrit (Fma/CMC/CTX) 39.6 % 36.1 - 50.3 Platelets 175 10^3/ul 150-400 Lymph% 24.7 % 17.0-48.0 Mixed% 4.3 Neutrophils % 71.0 Mean Corpuscular Vol 90 82.2-97.4 Mean Corpuscular Hemoglobin 29.9 27.6-33.3 Mean Corpuscular Hemo Concen 33.0 32.0-36.0 RDW 14.2 High 11.6-13.7 Mean Platelet Volume 8.3 5.5-11.0 Laboratory test finding 07/14/2015 TSH 3.24 mIU/L 0.50-6.00 Free T4 0.79 ng/dL 0.75-1.54 Laboratory test finding 07/01/2015 [facility] Lab Test hpv result Ict-Hemoccult (MCR)Fma Screeni 10/14/2014 Ict Hemoccult (1) 10/08/14 NEG Ict Hemoccult-(2) 10/09/14 NEG Ict-Hemoccult (3) 10/10/14 NEG Ua - Non Micro (a) 10/06/2014 Appearance clear Color yellow Glucose, Urine (Fma/CMC/CTX) - Bilirubin - Ketones - SP Grav 1.015 Blood - PH 5.0 Protein - Urobil 0.2 Nitrite - Leukocytes (a/CMC/Centrex) - Complete Blood Count 09/29/2014 WBC 4.3 x10^3/UL 3.6-9.6 RBC 4.57 x10^6/UL 3.90-5.70 HGB 14.2 g/dL 12.1-17.2 HCT 42 % 36-50 MCV 91.0 fL 82.2-97.4 MCH 31.1 pg 27.6-33.3 MCHC 34.1 g/dL 33.0-35.5 RDW 12.4 % 11.6-13.7 PLT 185 x10^3/UL 150-400 MPV 8.8 fL 7.4-10.4 Gran # 2.9 x10^3/UL 1.5-7.2 Lymph# 1.2 x10^3/UL 0.7-4.9 [place]# 0.2 x10^3/UL 0.1-0.9 Gran % 65.7 % 42.2-75.2 Lymph % 29.2 % 20.5-51.1 [place]% 5.1 % 1.7-9.3 Comprehensive Metabolic Prof 09/29/2014 Sodium 139 mEq/L 134-149 Potassium 4.8 mEq/L 3.6-5.5 Chloride 105 mEq/L 94-112 Carbon Dioxide 28 mEq/L 21-32 Glucose 127 mg/dL High 70-105 6 BUN 15 mg/dL 6-26 Creatinine 0.9 mg/dL 0.6-1.4 BUN/Creat Ratio 16.7 CALC 8.0-36.0 Calcium 10.0 mg/dL 8.6-10.2 Total Protein 7.1 g/dL 6.4-8.3 Albumin 4.6 g/dL 3.8-5.5 Globulin 2.5 g/dL 2.0-4.8 A/G Ratio 1.8 CALC 0.6-2.3 Alk. Phosphatase 42 U/L 30-110 Alt (SGPT) 32 U/L 7-35 Ast (Sgot) 25 U/L 5-34 Total Bilirubin 0.6 mg/dL 0.2-1.3 Lipid Profile 09/29/2014 Cholesterol 226 mg/dL High 120-200 Triglycerides 163 mg/dL 30-200 HDL Cholesterol 55 mg/dL 30-85 LDL (Calculated) 138 CALC High 0-129 VLDL Cholesterol 33 mg/dL 0-50 HDL Risk Factor 4.1 CALC 0.0-4.4 Laboratory test finding 09/29/2014 TSH 4.58 mIU/L 0.50-6.00 7 Surgical Pathology 09/16/2013 S RUN DATE: 09/17/ SEE NOTE> 8 Laboratory test finding 09/24/2012 TSH 4.02 mIU/L 0.50-6.00 9 Free T4 0.97 ng/dL 0.75-1.54 Laboratory test finding [facility] Met[facility] Lab [facility] 08/10/2012 Appearance YELLOW Color CLEAR Glucose, Urine (Fma/CMC/CTX) NEG Bilirubin NEG Ketones NEG SP Grav 1.020 Blood NEG PH 6.0 Protein NEG Urobil 0.2 Nitrite NEG Leukocytes (Fma/CMC/Centrex) NEG Ict Hemoccult (Fma) 07/09/2012 Ict Hemoccult (1) neg Ict Hemoccult-(2) neg Ict-Hemoccult (3) neg Comprehensive Metabolic Prof 07/03/2012 Albumin 4.5 g/dL 3.8-5.5 Alk. Phos. 46 U/L 30-110 Alt (SGPT) 31 U/L 7-35 Ast (Sgot) 23 U/L 5-34 BUN 18 mg/dL 6-26 Calcium 9.5 mg/dL 8.6-10.2 Chloride 107 mEq/L 94-112 Creatinine 1.0 mg/dL 0.6-1.4 Carbon Dioxide 24 mEq/L 21-32 Glucose 114 mg/dL High 70-105 Sodium 140 mEq/L 134-149 Total Bilirubin 0.4 mg/dL 0.2-1.3 Total Protein 6.8 g/dL 6.3-8.1 Potassium 4.7 mEq/L 3.6-5.5 Globulin 2.3 g/dL 2.0-4.8 A/G Ratio 1.9 Calc 0.6-2.2 BUN/Creat Ratio 18.0 Calc 8.0-36.0 Lipid Profile 07/03/2012 Cholesterol 220 mg/dL High 120-200 HDL 52 mg/dL 30-85 Triglycerides 160 mg/dL 30-200 HDL Risk Factor 4.2 CALC 0.0-4.4 LDL (Calculated) 136 CALC High 0-129 VLDL (Calculated) 32 mg/dL 0-50 Laboratory test finding 07/03/2012 TSH 5.97 mIU/L 0.50-6.00 Free T4 1.01 ng/dL 0.75-1.54 CBC Electronic ([facility]) 07/03/2012 WBC 4.1 3.6-9.6 RBC 4.52 3.90-5.70 Hemoglobin (Fma/CMC/CTX) 14.0 g/dL 12.1 - 17.2 Hematocrit (Fma/CMC/CTX) 41.3 % 36.1 - 50.3 Platelets 209 10^3/ul 150-400 Lymph% 32.6 20.5-51.1 Mixed% 5.9 Neutrophils % 61.5 Mean Corpuscular Vol 91 82.2-97.4 Mean Corpuscular Hemoglobin 31.0 27.6-33.3 Mean Corpuscular Hemo Concen 34.0 32.0-36.0 RDW 11.7 11.6-13.7 Mean Platelet Volume 8.6 6.5-11.0 Ua - Micro ([facility]) 07/03/2012 Appearance yellow Color clear Glucose neg Bilirubin neg Ketones neg SP Grav 1.025 Blood trace-lysed PH 5.5 Protein neg Urobil 0.2 Nitrite neg Leukocytes (a/CMC/Centrex) neg Hyaline 2-3 /Lpf Granular 2-3 /Lpf WBC (a,Centrex) 9-10 RBC 0-1 Mucus lg amt /Lpf Epith rare /Lpf Bacteria trace /Hpf Amorphous - /Lpf Crystals, Fluid (Fma/CMC/CTX) - Z#Comments - Ua - Micro ([facility]) 10/18/2011 Appearance cloudy Color yellow Glucose neg Bilirubin neg Ketones neg SP Grav 1.020 Blood large PH 6.5 Protein neg Urobil 0.2 Nitrite positive Leukocytes (Fma/CMC/Centrex) large Hyaline - /Lpf Granular - /Lpf WBC (a,Centrex) >100 RBC 15-20 Mucus - /Lpf Epith occass /Lpf Bacteria 4+ /Hpf Amorphous - /Lpf Crystals, Fluid (Fma/CMC/CTX) - Z#Comments - Laboratory test finding 10/18/2011 Urine Culture Escherichia coli 10 Ua - Non Micro ([facility]) 06/04/2011 Appearance CLOUDY Color YELLOW Glucose NEG Bilirubin NEG Ketones TRACE SP Grav 1.020 Blood MOD PH 6.5 Protein NEG Urobil 0.2 Nitrite POS Leukocytes (a/CMC/Centrex) LARGE Laboratory test finding 06/04/2011 Urine Culture Escherichia coli 11 Ict Hemoccult ([facility]) 09/15/2010 Ict Hemoccult (1) neg Ict Hemoccult-(2) neg Ict-Hemoccult (3) neg Comprehensive Metabolic Prof 08/28/2010 Albumin 4.4 g/dL 3.8-5.5 Alk. Phos. 44 U/L 30-110 Alt (SGPT) 24 U/L 7-35 Ast (Sgot) 22 U/L 5-34 BUN 16 mg/dL 6-26 Calcium 9.6 mg/dL 8.6-10.2 Chloride 104 mEq/L 94-112 Creatinine 1.0 mg/dL 0.6-1.4 Carbon Dioxide 25 mEq/L 21-32 Glucose 114 mg/dL High 70-105 Sodium 139 mEq/L 134-149 Total Bilirubin 0.5 mg/dL 0.2-1.3 Total Protein 6.6 g/dL 6.3-8.1 Potassium 4.5 mEq/L 3.6-5.5 Globulin 2.2 g/dL 2.0-4.8 A/G Ratio 2.0 Calc 0.6-2.2 BUN/Creat Ratio 15.7 Calc 8.0-36.0 Lipid Profile 08/28/2010 Cholesterol 206 mg/dL High 120-200 HDL 43 mg/dL 30-85 Triglycerides 159 mg/dL 30-200 HDL Risk Factor 4.8 CALC 4.2-7.0 LDL (Calculated) 132 CALC High 0-129 VLDL (Calculated) 32 mg/dL 0-50 Laboratory test finding 08/28/2010 TSH 5.05 mIU/L 0.50-6.00 Laboratory test finding 08/28/2010 CA 125 5.0 U/mL 0.0-30.1 12, 13 CBC Electronic ([facility]) 08/28/2010 WBC 3.9 3.6-9.6 RBC 4.74 3.90-5.70 Hemoglobin (Fma/CMC/CTX) 14.6 g/dL 12.1 - 17.2 Hematocrit (Fma/CMC/CTX) 43.0 % 36.1 - 50.3 Platelets 216 10^3/ul 150-400 Lymph% 35.0 20.5-51.1 Mixed% 9.8 Neutrophils % 55.2 Mean Corpuscular Vol 90.7 82.2-97.4 Mean Corpuscular Hemoglobin 30.8 27.6-33.3 Mean Corpuscular Hemo Concen 34.0 32.0-36.0 RDW 12.7 11.6-13.7 Mean Platelet Volume 12.2 High 6.5-11.0 Ua - Micro ([facility]) 08/28/2010 Appearance CLEAR Color YELLOW Glucose NEG Bilirubin NEG Ketones NEG SP Grav 1.025 Blood TRACE-INTACT PH 7.0 Protein TRACE Urobil 0.2 Nitrite NEG Leukocytes (Fma/CMC/Centrex) NEG Hyaline - /Lpf Granular - /Lpf WBC (Fma,Centrex) 0-1 RBC 1-2 Mucus - /Lpf Epith RARE /Lpf Bacteria TRACE /Hpf Amorphous SLT /Lpf Crystals, Fluid (Fma/CMC/CTX) - Z#Comments - Comp Metabolic Panel 06/25/2010 Sodium 132 mmol/L Low 135-145 Potassium 3.7 mmol/L 3.5-5.0 Chloride 101 mmol/L 101-111 Co2 (Carbon Dioxide) 24.0 mmol/L 22-32 Anion Gap 7.0 mmol/L 2-11 14 Glucose 122 mg/dL High 70-100 15 BUN 13 mg/dL 6-24 Creatinine 0.85 mg/dL 0.50-1.40 One Over Creatinine 1.10 BUN/Creatinine Ratio 15.3 8-20 Calcium 9.1 mg/dL 8.1-9.9 Total Protein 6.3 GM/DL 6.2-8.1 Albumin 4.0 GM/DL 3.2-5.2 Globulin 2.3 GM/DL 2-4 Albumin/Globulin Ratio 1.7 1-3 Bilirubin Total 0.6 mg/dL 0.4-1.5 16 Alkaline Phosphatase 40 U/L 30-110 Alt (SGPT) 35 U/L 14-54 Ast (Sgot) 27 U/L 12-42 eGFR Non- 72.3 > 60 eGFR 87.4 > 60 17 Laboratory test finding 06/25/2010 Troponin-I 0 NG/ML 0-0.06 18 CBC With Electronic Diff 06/25/2010 White Blood Count 5.1 CUMM 4.8-10.8 Red Cell Count 4.38 CUMM 4.2-5.4 Hemoglobin 13.4 g/dL 12.0-16.0 Hematocrit 39 % 35-47 Mean Corpuscular Volume 89 um3 79-97 Mean Corpuscular Hemoglob 31 pg 27-31 Mean Corpuscular HGB Cone 35 g/dL 32-36 Redcell Distribution WDTH 13 % 10.5-15 Platelet Count 202 CUMM 150-450 Mean Platelet Volume 7.7 um3 7.4-10.4 19 Manual Differential 06/25/2010 Polysegmented Neutrophil 82 % 38-83 Band Neutrophil 1 % 0-8 Lymphocyte 11 % Low 25-47 Monocyte 3 % 0-13 Eosinophil 1 % 0-6 Atypical Lymph 2 % 0-6 Absolute Neutrophil Count 4.2 Anisocytosis [facility] test finding 06/25/2010 Magnesium 2.1 mg/dL 1.7-2.6 TSH 4.11 MIU/ML 0.34-5.60 Ict Hemoccult (Fma) 09/03/2009 Ict Hemoccult (1) 08/29/09 NEG Ict Hemoccult-(2) 08/30/09 NEG Ict-Hemoccult (3) 08/31/09 NEG Laboratory test finding 08/03/2009 TSH 4.10 mIU/L 0.50-6.00 Free T4 0.95 ng/dL 0.75-1.54 Lipid Profile 08/03/2009 Cholesterol 196 mg/dL 120-200 HDL 53 mg/dL 30-85 Triglycerides 126 mg/dL 30-200 HDL Risk Factor 3.7 CALC Low 4.2-7.0 LDL (Calculated) 118 CALC 0-129 VLDL (Calculated) 25 mg/dL 0-50 Comprehensive Metabolic Prof 08/03/2009 Albumin 4.4 g/dL 3.8-5.5 Alk. Phos. 45 U/L 30-110 Alt (SGPT) 28 U/L 7-35 Ast (Sgot) 21 U/L 5-34 BUN 18 mg/dL 6-26 Calcium 10.1 mg/dL 8.6-10.2 Chloride 105 mEq/L 94-112 Creatinine 0.8 mg/dL 0.6-1.4 Carbon Dioxide 26 mEq/L 21-32 Glucose 101 mg/dL 70-105 Sodium 142 mEq/L 134-149 Total Bilirubin 0.3 mg/dL 0.2-1.3 Total Protein 6.6 g/dL 6.3-8.1 Potassium 5.1 mEq/L 3.6-5.5 Globulin 2.2 g/dL 2.0-4.8 A/G Ratio 2.0 Calc 0.6-2.2 BUN/Creat Ratio 20.9 Calc 8.0-36.0 Complete Blood Count 08/03/2009 WBC 4.1 x10^3/uL 3.6-9.6 Gran# 2.7 x10^3/uL 1.5-7.2 Gran% 66.8 % 42.2-75.2 HCT 41 % 36-50 HGB 14.3 g/dL 12.1-17.2 Lymph# 1.1 x10^3/uL 0.7-4.9 Lymph% 27.3 % 20.5-51.1 MCH 30.4 pg 27.6-33.3 MCV 88.0 fL 82.2-97.4 MCHC 34.6 g/dL 33.0-35.5 Mo# 0.2 x10^3/uL 0.1-0.9 Mo% 5.9 % 1.7-9.3 MPV 9.0 fL 7.4-10.4 PLT 202 x10^3/uL 150-400 RBC 4.69 x10^6/uL 3.90-5.70 RDW 12.9 % 11.6-13.7 Ua - Non Micro ([facility]) 08/03/2009 Appearance CLEAR Color YELLOW Glucose - Bilirubin - Ketones - SP Grav 1.025 Blood - PH 5.5 Protein - Urobil 0.2 Nitrite - Leukocytes ([facility]) - Laboratory test finding 07/26/2008 TSH 4.97 mIU/L 0.50-6.00 20 Free T4 0.96 ng/dL 0.75-1.54 20 Laboratory test finding 07/26/2008 CA 125 9.5 U/mL 0.0-30.1 21, 22 Ict Hemoccult ([facility]) 06/15/2008 Ict Hemoccult (1) NEG Ict Hemoccult-(2) NEG Ict-Hemoccult (3) NEG Ua - Non Micro ([facility]) 05/27/2008 Appearance CLEAR Color YELLOW Glucose - Bilirubin - Ketones - SP Grav 1.015 Blood - PH 7.0 Protein - Urobil 0.2EU/DL Nitrite - Leukocytes (a/[facility]) - CBC ([facility]) 05/24/2008 WBC 4.4 3.6-9.6 RBC 4.47 3.90-5.70 Hemoglobin (Fma/[facility]/CTX) 13.8 g/dL 12.1 - 17.2 Hematocrit (a/CMC/CTX) 40.2 % 36.1 - 50.3 Mean Corpuscular Vol 89.9 82.2-97.4 Mean Corpuscular Hemaglobin 30.9 27.6-33.3 Mean Corpuscular Hemo Concen 34.3 33.0-36.0 Platelets 207 10^3/ul 150-400 Lymph% 30.3 20.5-51.1 Mixed% 9.3 Neutrophils % 60.4 RDW 12.9 11.6-13.7 Mean Platelet Volume 11.9 High 7.4-10.4 Comprehensive Metabolic Prof 05/24/2008 Albumin 4.2 g/dL 3.8-5.5 23 Alk. Phos. 43 U/L 30-110 23 Alt (SGPT) 15 U/L 7-35 23 Ast (Sgot) 17 U/L 5-34 23 BUN 18 mg/dL 6-26 23 Calcium 9.3 mg/dL 8.6-10.2 23 Chloride 105 mEq/L 94-112 23 Creatinine 1.0 mg/dL 0.6-1.4 23 Carbon Dioxide 28 mEq/L 21-32 23 Glucose 101 mg/dL 70-105 23 Sodium 143 mEq/L 134-149 23 Total Bilirubin 0.3 mg/dL 0.2-1.3 23 Total Protein 6.9 g/dL 6.3-8.1 23 Potassium 5.1 mEq/L 3.6-5.5 23 Globulin 2.7 g/dL 2.0-4.8 23 A/G Ratio 1.6 Calc 0.6-2.2 23 BUN/Creat Ratio 18.0 Calc 8.0-36.0 23 Lipid Profile 05/24/2008 Cholesterol 209 mg/dL High 120-200 23 HDL 56 mg/dL 30-85 23 Triglycerides 98 mg/dL 30-200 23 HDL Risk Factor 3.8 CALC Low 4.2-7.0 23 LDL (Calculated) 134 CALC High 0-129 23 VLDL (Calculated) 20 mg/dL 0-50 23 Laboratory test finding 05/24/2008 TSH 5.45 mIU/L 0.50-6.00 23 Free T4 0.97 ng/dL 0.75-1.54 23 Comp Metabolic Panel 10/20/2007 One Over Creatinine 1.00 Anion Gap 2.0 mmol/L 2-11 24 Albumin/Globulin Ratio 1.7 1-3 Albumin 4.0 GM/DL 3.6-5.4 Alkaline Phosphatase 43 U/L 30-110 Alt (SGPT) 26 U/L 14-54 Ast (Sgot) 22 U/L 12-42 BUN 16 mg/dL 6-24 Calcium 9.2 mg/dL 8.7-10.2 Chloride 107 mmol/L 101-111 Co2 (Carbon Dioxide) 30.0 mmol/L 22-32 Globulin 2.4 GM/DL 2-4 Glucose 100 mg/dL 70-105 Potassium 4.6 mmol/L 3.5-5.0 Sodium 139 mmol/L 135-145 Bilirubin Total 0.7 mg/dL 0.4-1.5 Total Protein 6.4 GM/DL 6.2-8.1 BUN/Creatinine Ratio 16.0 8-20 Creatinine 1.0 mg/dL 0.5-1.4 Laboratory test finding 10/20/2007 TSH 4.14 MIU/ML 0.34-5.60 Protime 07/27/2007 Inr 0.86 25, 26 Protime 11.2 10.9-13.3 25 Laboratory test finding 07/27/2007 PTT (Aptt) 24.4 20.4-29.5 25, 27 CBC With Electronic Diff 07/27/2007 White Blood Count 4.8 CUMM 4.8-10.8 25 Abs Basophils 0 0-0.2 25 Abs Eosinophils 0.1 0-0.6 25 Absolute Neutrophil Count 2.8 1.5-7.7 25 Abs Lymphs 1.4 1.0-4.8 25 Abs Mononuclear 0.5 0-0.8 25 Basophil % 0.3 % 0-2 25 Hematocrit 40 % 35-47 25 Hemoglobin 13.9 g/dL 12.0-16.0 25 Eosinophil % 1.8 % 0-6 25 Gran % 58.9 % 38-83 25 Lymph % 28.7 % 20-45 25 Mean Corpuscular HGB Cone 35 g/dL 32-36 25 Mean Corpuscular Hemoglob 31 pg 27-31 25 Mean Corpuscular Volume 89 um3 79-97 25 Mean Platelet Volume 9.3 um3 7.4-10.4 25 Mononuclear % 10.3 % High 1-9 25 Platelet Count 241 CUMM 150-450 25 Red Cell Count 4.54 CUMM 4.2-5.4 25 Redcell Distribution WDTH 13 % 10.5-15 25 Basic Metabolic Panel 07/27/2007 One Over Creatinine 1.25 25 Anion Gap 6.0 mmol/L 2-11 25, 28 BUN 20 mg/dL 6-24 25 Calcium 10.6 mg/dL High 8.7-10.2 25 Chloride 107 mmol/L 101-111 25 Co2 (Carbon Dioxide) 33.0 mmol/L High 22-32 25 Glucose 107 mg/dL High 70-105 25 Potassium 4.6 mmol/L 3.5-5.0 25 Sodium 146 mmol/L High 135-145 25 BUN/Creatinine Ratio 25.0 High 8-20 25 Creatinine 0.8 mg/dL 0.5-1.4 25 Ict Hemoccult (a) 05/31/2007 Ict Hemoccult (1) NEG 04/26/07 Ict Hemoccult-(2) NEG 04/28/07 Ict-Hemoccult (3) NEG 04/29/07 Ua - Non Micro (a) 04/23/2007 Appearance CLEAR Color YELLOW Glucose, Urine (a/CMC/CTX) NEG Bilirubin NEG Ketones NEG SP Grav >=1.030 Blood NEG PH 5.0 Protein NEG Urobil 0.2 Nitrite NEG Leukocytes (a/[facility]) NEG Laboratory test finding 04/23/2007 Free T4 1.22 ng/dL 0.75-1.54 Complete Blood Count 04/23/2007 WBC 5.9 x10\\S\\3/uL 3.6-9.6 Gran# 4.3 x10\\S\\3/uL 1.5-7.2 Gran% 72.7 % 42.2-75.2 HCT 40 % 36-50 HGB 13.4 g/dL 12.1-17.2 Lymph# 1.2 x10\\S\\3/uL 0.7-4.9 Lymph% 21.0 % 20.5-51.1 MCH 30.9 pg 27.6-33.3 MCV 92.9 fL 82.2-97.4 MCHC 33.3 g/dL 33.0-35.5 Mo# 0.4 x10\\S\\3/uL 0.1-0.9 Mo% 6.3 % 1.7-9.3 MPV 9.0 fL 7.4-10.4 PLT 195 x10\\S\\3/uL 150-400 RBC 4.32 x10\\S\\6/uL 3.90-5.70 RDW 12.5 % 11.6-13.7 Laboratory test finding 04/23/2007 TSH 1.44 mIU/L 0.50-6.00 Comprehensive Metabolic Prof 04/23/2007 Albumin 4.1 g/dL 3.8-5.5 Alk. Phos. 51 U/L 30-110 Alt (SGPT) 16 U/L 7-35 Ast (Sgot) 20 U/L 5-34 BUN 18 mg/dL 6-26 Calcium 9.2 mg/dL 8.6-10.2 Chloride 98 mEq/L 94-112 Creatinine 0.8 mg/dL 0.6-1.4 Carbon Dioxide 30 mEq/L 21-32 Glucose 91 mg/dL 70-105 Sodium 138 mEq/L 134-149 Total Bilirubin 0.3 mg/dL 0.2-1.3 Total Protein 6.7 g/dL 6.3-8.1 Potassium 4.3 mEq/L 3.6-5.5 Globulin 2.6 g/dL 2.0-4.8 A/G Ratio 1.6 Calc 0.6-2.2 BUN/Creat Ratio 21.7 Calc 8.0-36.0 Lipid Profile 04/23/2007 Cholesterol 192 mg/dL 120-200 HDL 53 mg/dL 30-85 Triglycerides 146 mg/dL 30-200 HDL Risk Factor 3.6 CALC Low 4.2-7.0 LDL (Calculated) 110 CALC 0-129 VLDL (Calculated) 29 mg/dL 0-50 1 consistent w/ previous results 2 consistent w/ previous results 3 FASTING 4 RESULTS VERIFIED BY REPEAT ANALYSIS 5 consistent w/ previous results 6 RESULTS VERIFIED BY REPEAT ANALYSIS 7 FASTING 8 RUN DATE: 09/17/13 [facility] LAB LIVE PAGE 1 RUN TIME: [address] [place] [id number] Specimen Inquiry Name: MEETA ALEMAN : [address]: Guilherme Chapman MD Acct: [id number] Unit: [id number] AGE: 63 Location: ENDO Re09/16/13 SEX: F Status: REG REF SPEC: [id number] LORNA: 09/16/13- SUBM DR: Guilherme Chapman MD REQ: [id number] RECD: 09/16/13 STATUS: ADAM HOUSER DR: Lawson Mckeon MD _ ORDERED: LEVEL IV/2 FINAL DIAGNOSIS 1. Colon, cecum, biopsies: A. Tubular adenomas. B. No high grade dysplasia or malignancy. 2. Colon, right, biopsy: A. Tubular adenoma. B. No high grade dysplasia or malignancy. CLINICAL HISTORY History of colon polyps for screening colonoscopy. POST-OPERATIVE DIAGNOSIS Screening colonoscopy into terminal ileum, prep good. Three small polyps removed. Mild sigmoid diverticulosis. GROSS DESCRIPTION 1. The specimen is received in formalin labeled Meeta Tiffanie Jaimesnguyễn, Cecal Polyps (2) and consists of two, crawford, polypoid, soft tissue fragments measuring 0.5 x 0.3 x 0.2 cm. and 0.6 x 0.3 x 0.3 cm. Submitted entirely, one cassette. 2. The specimen is received in formalin labeled Meeta Aleman, Biopsy Right Colon Polyp and consists of a 0.6 x 0.4 x 0.2 cm. aggregate of multiple, crawford-pink, irregular, soft tissue fragments. Submitted entirely, one cassette. CONTINUED ON NEXT PAGE * ML=Testing performed at Main Lab DEPARTMENT OF PATHOLOGY, [address] [place] [address] John Cline M.D. Director [facility] Permit #[id number] RUN DATE: 09/17/13 [facility] LAB LIVE PAGE 2 RUN TIME: [address], [place] [address] Specimen Inquiry Patient: MEETA ALEMAN Dwaine [id number] (Continued) GROSS DESCRIPTION (Continued) Signed (signature on file) John Cline MD 1538 END OF REPORT * ML=Testing performed at Main Lab DEPARTMENT OF PATHOLOGY, [address] [place] [id number] John Cline M.D. Director [facility] Permit #[id number] FASTING 10 Escherichia coli >100,000 col/ml URINE CULTURE organism 1 Escherichia coli >100,000 col/ml Meropenem <=0.25 Susceptible Ertapenem <=0.5 Susceptible Amikacin <=2 Susceptible Amoxicillin/CA <=2 Susceptible Ampicillin 4 Susceptible Aztreonam <=1 Susceptible Cefazolin <=4 Susceptible Ciprofloxacin <=0.25 Susceptible Gentamicin <=1 Susceptible Imipenem <=1 Susceptible Levofloxacin <=0.12 Susceptible Nitrofurantoin 64 Intermediate Tetracycline <=1 Susceptible Trimethoprim/Sulfa <=20 Susceptible 11 Escherichia coli >100,000 col/ml URINE CULTURE organism 1 Escherichia coli >100,000 col/ml Meropenem <=0.25 Susceptible Ertapenem <=0.5 Susceptible Amikacin <=2 Susceptible Amoxicillin/CA 8 Susceptible Ampicillin >=32 Resistant Aztreonam <=1 Susceptible Cefazolin <=4 Susceptible Ciprofloxacin <=0.25 Susceptible Gentamicin <=1 Susceptible Imipenem <=1 Susceptible Levofloxacin <=0.12 Susceptible Nitrofurantoin 32 Susceptible Tetracycline >=16 Resistant Trimethoprim/Sulfa <=20 Susceptible 12 FASTING; 1 POURED OFF SERUM FROZEN 13 . Serum levels of this cancer antigen should not be interpreted as absolute evidence of the presence or absence of disease. This result value should be used in conjunction with information obtained from clinical diagnostic procedures. This assay should not be used as a cancer screening test. . Values with different assay methods or kits cannot be used interchangeably. Results obtained using [employer] ICMA methodology. . 14 Anion gap measurement may be of limited value in the presence of any alkalosis, especially in a combined acid base disorder. . 15 Note change in reference range as of 03/06/08. The change was based on recommendations from the [place] [employer]. 16 A metabolite of Naproxen, O-desmethylnaproxen, has been shown to interfere with the Jendrassik-Bahman method for measuring total bilirubin. Samples from patients who have taken Naproxen have shown spurious elevation in total bilirubin levels. 17 Because ethnic data is not always readily available, this report includes an eGFR for both -Americans and non- Americans. The National Kidney Disease Education Program (NKDEP) does not endorse the use of the MDRD equation for patients that are not between the ages of 18 and 70, are , have extremes of body size, muscle mass, or nutritional status, or are non- or non-. According to the National Kidney Foundation, irrespective of diagnosis, the stage of the disease is based on the level of kidney function: Stage Description GFR(mL/min/1.73 m(2)) 1 Kidney damage with normal or decreased GFR 90 2 Kidney damage with mild decrease in GFR 60-89 3 Moderate decrease in GFR 30-59 4 Severe decrease in GFR 15-29 5 Kidney failure <15 (or dialysis) 18 New Reference Range and Interpretation effective 04/19/2002 TnI (ng/ml) INTERPRETATION Less Than 0.06 ng/mL NOT SUPPORTIVE OF DIAGNOSIS OF HI 0.06 - 0.50 ng/ml INDETERMINATE: SUGGEST SERIAL STUDIES IF CLINICALLY INDICATED. Greater than 0.5 ng/mL CONSISTENT WITH DIAGNOSIS OF HI . 19 NRBC 20 FASTING 21 FASTING; 1 SST 22 . Serum levels of this cancer antigen should not be interpreted as absolute evidence of the presence or absence of disease. This result value should be used in conjunction with information obtained from clinical diagnostic procedures. This assay should not be used as a cancer screening test. . Values with different assay methods or kits cannot be used interchangeably. Results obtained using [employer] ICMA methodology. . 23 FASTING 24 Anion gap measurement may be of limited value in the presence of any alkalosis, especially in a combined acid base disorder. . 25 SDS 08/06/07 26 BOBO VALUE=2.01 ( OF 06/22/07 Recommended INR for Patients on Oral Anticoagulants Prophylaxis 2.0 - 3.0 Treatment of thrombosis 2.0 - 3.0 Prevention of embolism 2.0 - 3.0 Prevention of embolism from prosthetic heart valves 2.5 - 3.5 27 PLEASE NOTE NEW REFERENCE RANGE EFFECTIVE 05 28 Anion gap measurement may be of limited value in the presence of any alkalosis, especially in a combined acid base disorder. . Procedures Date CPT Code Description Status Comment 01/25/2018 97859 Electrocardiogram Complete Completed 01/23/2018 Mammogram Completed 11/09/2016 Mammogram Completed 12/01/2015 79157 Electrocardiogram Complete Completed 10/01/2015 Mammogram Completed 09/15/2015 Bone Mineral Density Test Completed normal 04/09/2015 Mammogram Completed 10/09/2014 Mammogram Completed 10/06/2014 87222 Electrocardiogram Complete Completed 09/16/2013 Colonoscopy Completed 08/30/2012 Mammogram Completed 08/10/2012 32638 Electrocardiogram Complete Completed 09/10/2010 65531 Electrocardiogram Complete Completed 08/03/2009 60844 Electrocardiogram Complete Completed 08/04/2008 Colonoscopy Completed 06/27/2008 Mammogram Completed 05/27/2008 30521 Electrocardiogram Complete Completed 05/28/2007 Mammogram Completed 04/23/2007 00623 Electrocardiogram Complete Completed Encounters Type Date Location Provider CPT E/M Dx Office Visit 04/01/2016 8:00a [facility] Lawson Mckeon, 9[address] Z87.410 M.Tiffanie R00.2 E03.4 G47.33 M15.0 Z00.00 Z23 Office Visit 12/01/2015 10:00a [facility] Lawson Mckeon M.D. 38946 E78.2 Z87.410 R73.09 R00.2 E03.4 G47.33 Office Visit 07/14/2015 3:00p [facility] Lawson Mckeon M.D. 15661 E03.9 E78.2 H34.9 Office Visit 02/23/2015 3:40p [facility] Lawson Mckeon M.D. 05750 V13.22 372.00 719.45 Office Visit 08/17/2013 11:00a [facility] Office Maria Esther KumarbhartJUSTINO 51186 372.00 461.8 Office Visit 08/10/2012 8:00a [facility] Lawson Mckeon M.D. 23094 244.9 272.4 V13.22 719.41 719.46 V70.0 250.00 Office Visit 10/18/2011 4:20p [facility] Office Radha Grover M.D. 27978 599.0 Office Visit 06/25/2011 1:40p [facility] Office Terry Velázquez M.D. 26410 787.91 Office Visit 06/04/2011 1:45p [facility] Yamileth Alva M.D. 66153 599.0 Office Visit 02/24/2011 10:50a [facility] Lawson Mckeon M.D. 16131 719.46 785.1 244.9 Office Visit 09/10/2010 8:00a [facility] Lawson Mckeon M.D. 69744 715.90 272.4 V13.22 244.9 V12.72 709.9 785.1 Office Visit 07/28/2010 2:30p [facility] Brittnee Willingham [employer]STATE [employer]NER 42415 709.9 Office Visit 08/03/2009 8:00a [facility] Lawson Mckeon M.D. 34300 244.9 V13.22 V12.72 715.90 709.9 272.4 V70.0 V76.41 782.0 Office Visit 12/16/2008 6:20p [facility] Lawson Mckeon M.D. 57007 V06.5 E906.4 913.4 Office Visit 05/27/2008 1:00p [facility] Lawson Mckeon M.D. 92019 246.9 715.90 V76.41 V12.72 V13.22 V70.0 272.4 709.9 Office Visit 04/23/2007 1:20p [facility] Lawson Mckeon M.D. 65447 272.4 715.90 V13.22 246.9 V70.0 V76.41 V12.72 Office Visit 10/24/2006 2:30p [facility] Leroy Stafford-C 65940 715.90 Plan of Care 01/25/2018 - Lawson Mckeon M.D.E03.9 Hypothyroidism, unspecifiedComments: Currently doing well on her present dose of levothyroxineFollow up:Followup:. ( Follow up)G47.33 Obstructive sleep apnea (adult) (pediatric)Comments:Continue CPAP at present setting continue followup with sleep labM15.0 Primary generalized (osteo)arthritisComments:I feel she is medically cleared for the planned right hip replacement by Dr. Sanders87.410 Personal history of cervical dysplasiaComments:continue care with milling machinist , patient will arrange for a AUTOCAD DESIGNER consult [id number] Personal history of colonic polypsComments:Repeat colonoscopy in 6293Z44.09 Other abnormal glucoseComments:Patient will return for a blood glucose, 2 hours after breakfast , is that level is elevated consider ceeuxopltO87.00 Encntr for general adult medical exam w/o abnormal findingsNew Labs:Urinalysis W/RFL To MicroComments:Mammogram was negative January of 2018, DEXA scan normal in 2016, we discussed obtaining a Shingrix vaccine for shingles, refer to Dr. Coulter for routine skin exam, continue vitamin D and calcium supplementationEKG shows normal sinus rhythm, normal tracingWe discussed the DASH diet for weight lossFollow up:Followup:. (Follow up)AllNew Medication:Shingrix 50 mcgComments:~B_~U_Medication Management~b_~u_ Patient Understands medications she's taking? Yes No Are there Barriers to Adherence? Yes No Has the patient been asked about herbal supplements and therapies, and OTC meds? Yes No Patient was given anticipatory guidance regarding routine health care screenings, immunizations, and primary prevention of illness.
[2018-02-22] MEDS ORDERED: ceFAZolin 2 GM PREMIX (*) 2 GM/50 ML BAG IVPB ONE (08:44)
[2018-02-22] MEDS ORDERED: Propofol* 10 MG/ML 20 ML BTL IV PUSH ONE ×2 (11:24→12:35)
[2018-02-22] MEDS ORDERED: Bupivacaine-MPF SPINAL* 7.5 MG/ML - 2ML AMP ONE (11:24)
[2018-02-22] MEDS ORDERED: Lidocaine 2% PF * 5 ML VIAL ONE (11:24)
[2018-02-22] MEDS ORDERED: Acetaminophen TAB* 325 MG PO PRN (11:59)
[2018-02-22] MEDS ORDERED: Ondansetron INJ* 2 MG/ML VIAL IV PRN ×2 (11:59→13:48)
[2018-02-22] MEDS ORDERED: oxyCODONE/Acetamin 5/325 MG* TAB PO PRN ×2 (11:59→13:48)
[2018-02-22] MEDS ORDERED: Naloxone* 0.4 MG/ML 1 ML VIAL IV PRN (11:59)
[2018-02-22] MEDS ORDERED: fentaNYL* 50 MCG/ML 2 ML VIAL (100 MCG VIAL) IV PRN (11:59)
[2018-02-22] MEDS ORDERED: EPHEDrine (Pressors)* 50 MG/ML VIAL ONE (12:25)
[2018-02-22] MEDS ORDERED: Bupivacaine 0.5% PF 10 ML VIAL INJ ONE (12:50)
[2018-02-22] MEDS ORDERED: Bisacodyl SUPP* 10 MG SUPP PR PRN (13:48)
[2018-02-22] MEDS ORDERED: diPHENhydraMINE IV* 50 MG/ML 1 ml VIAL (BENADRYL) IV PRN (13:48)
[2018-02-22] MEDS ORDERED: Magnesium Hydroxide LIQ* 30 ML UDC PO PRN (13:48)
--- NOTE | 2018-02-22 14:41 | RAD ---
Indication: Right hip replacement Single low AP view the pelvis demonstrates bipolar left hip replacement. The right femoral reamer is in place. Acetabular cup is in location. IMPRESSION: Intraoperative control films for right hip replacement.
--- NOTE | 2018-02-22 14:44 | RAD ---
Indication: Right total hip replacement. 2 views of the right hip demonstrates right hip replacement in satisfactory position. No periprosthetic fracture is noted. IMPRESSION: Right hip replacement in satisfactory position.
--- NOTE | 2018-02-22 14:52 | RAD ---
INDICATION: Postoperative right hip arthroplasty COMPARISON: September 18, 2017 TECHNIQUE: A portable view of the low pelvis is submitted FINDINGS: There is right hip arthroplasty. The prosthesis appears normally seated. IMPRESSION: POSTOPERATIVE RIGHT HIP ARTHROPLASTY
--- NOTE | 2018-02-22 15:18 | PN ---
Progress Note - Progress Note Date of Service: 02/22/18 SOAP: Post op Note Subjective: [Pt was seen while in the PACU. She states that she is doing quite well. She denies any chest pain, SOB. Pain is well controlled. VSS] Objective: [General: A&O. NAD MSK: RLE dressing is c/d/i. Pt is able to df/pf. ] Assessment: [POD 0 - RTKA ] Plan: [- Tomorrow start PT/OT WBAT 24 hours of post op abx to be given warfarin 6mg tonight, lovenox 30mg tomorrow. Oxycodone, percocet for pain relief. ]
[2018-02-22] MEDS ORDERED: Morphine INJ* 2 MG/ML 1 ML SYRINGE (TWO MG - NEW SYRINGE VERSION) ONE (15:58)
[2018-02-22] MEDS ORDERED: oxyCODONE/Acetamin 5/325 MG* TAB ONE (16:25)
[2018-02-22] MEDS ORDERED: Warfarin TAB(*) 6 MG PO ONE (17:00)
[2018-02-22] MEDS: Acetaminophen TAB* 325 MG PO SCH ×2 (17:25→20:22)
[2018-02-22] MEDS: oxyCODONE TAB* 5 MG TAB PO PRN ×2 (18:20→23:02)
[2018-02-22] MEDS: ceFAZolin 1 GM ADVAN(*) 1 GM in NS 0.9% 50 ML* 50 ML IVPB SCH (19:55)
[2018-02-22] MEDS: Docusate CAP* 100 MG PO SCH (20:21)
[2018-02-22] MEDS: Magnesium Hydroxide LIQ* 30 ML UDC PO SCH (20:21)
[2018-02-22] MEDS: oxyCODONE/Acetamin 5/325 MG* TAB PO PRN (20:21)
[2018-02-22] MEDS ORDERED: Aspirin TAB* 325 MG PO ONE (21:00)
[2018-02-22] MEDS: Morphine VIAL* 4 MG/ML VIAL (1 ml vial) IV PRN (21:02)
[2018-02-23] MEDS: oxyCODONE/Acetamin 5/325 MG* TAB PO PRN ×5 (02:07→21:17)
[2018-02-23] MEDS: ceFAZolin 1 GM ADVAN(*) 1 GM in NS 0.9% 50 ML* 50 ML IVPB SCH ×2 (03:51→11:22)
[2018-02-23] MEDS: oxyCODONE TAB* 5 MG TAB PO PRN ×3 (03:53→12:22)
[2018-02-23] MEDS: Acetaminophen TAB* 325 MG PO SCH ×3 (03:56→20:52)
[2018-02-23 05:47] LABS: Hematocrit 32 % (35-47); Hemoglobin 10.8 g/dl (12.0-16.0); Mean Platelet Volume 9.7 um3 (7.4-10.4); Platelet Count 145 10^3/ul (150-450)
[2018-02-23 05:53] LABS: INR 1.02 (0.77-1.02)
[2018-02-23] MEDS: Levothyroxine TAB* 50 MCG TAB PO SCH (06:07)
[2018-02-23 06:09] LABS: EGFR Non-African American 76.6 (>60)
[2018-02-23] MEDS ORDERED: NS 0.9% 1000 ML* 1,000 ML IV ONE (06:30)
--- NOTE | 2018-02-23 07:17 | OP ---
OPERATIVE REPORT: DATE OF OPERATION: 02/22/18 DATE OF : 48 SURGEON: Wendy Burk MD DOSIMETRIST: TRISTON Dumont Mr. Mujica did help throughout the procedure with preparation of the leg, wound retraction, manipulat ion of the hip, and wound closure. ANESTHESIOLOGIST: Patrick Mehta MD ANESTHESIA: Spinal. PRE-OP DIAGNOSIS: Severe end-stage degenerative osteoarthritis of the right hip. POST-OP DIAGNOSIS: Severe end-stage degenerative osteoarthritis of the right hip. OPERATIVE PROCEDURE: Right total hip arthroplasty. INDICATIONS: Ms. Mccarthy is a 68-year-old female with years of increasingly severe right hip pain. She failed conservative treatment with anti-inflammatories, pain medication, and physical therapy. R adiographs showed [id number] arthritis. Due to continued pain and decreased quality of life, she e lected to undergo right total hip arthroplasty. Informed consent was obtained from the patient. She understood the risks of surgery included but were not limited to bleeding, infection, damage to near by structures, continued pain, need for further surgery, intraoperative fracture, nerve palsy, hardwa re failure or loosening, dislocation, leg length discrepancy, stroke, heart attack, blood clot, and d eath. She wished to proceed. COMPLICATIONS: None. ESTIMATED BLOOD LOSS: 300 cc. SPECIMENS: Bone and acetabular reaming sent to Pathology. HARDWARE USED: This is uncemented Keegan total hip arthroplasty hardware. For the cup, a Trident h emispherical acetabular shell, 46C. For the liner, a Trident X3 0-degree polyethylene insert, 32C. For the stem, an Accolade TMZF size 1 with a 127-degree neck and for the head, a Biolox delta ceramic V40 femoral head 32 +0. INTRAOPERATIVE FINDINGS: Intraoperatively, the patient was noted to have severe arthritis with compl ete loss of cartilage in the femoral head and acetabulum. She had significant inferior and anterior osteophyte formation around the acetabulum. DESCRIPTION OF PROCEDURE: Ms. Mccarthy was identified in the preanesthesia unit. Her right lower extr emity was marked as the correct operative side. Informed consent was signed and placed in the chart. The patient was taken to the operating room and placed under spinal anesthesia. A Ramírez catheter w as placed. The patient was placed in the left lateral decubitus position on the peg board. All bony prominences were well padded. The right lower extremity was prepped and draped in the usual sterile fashion. Preop time-out was made to correctly identify the patient's side and site. Appropriate pe rioperative antibiotics were given within 1 hour of incision. A standard posterior hip incision was made with the 10 blade and carried down to the lateral fascial layer. New 10 blade was used to make a standard incision in the lateral fascia. A Charnley retracto r was placed. The piriformis and conjoint tendons were identified. These were elevated off the post erolateral femur and tagged with #5 Ethibond. Next, electrocautery was used to make a standard poste rolateral capsular flap and this was also tagged with #5 Ethibond. The hip was carefully dislocated. Lesser troch to center of the femoral head measured 48 mm. The oscillating saw was used to make th e standard femoral neck cut. The femoral head was carefully removed. The femur was retracted anteriorly. After appropriate placement of retractors, the acetabulum was we ll visualized. A long-handled knife was used to sharply remove any remaining labrum from the acetabu lar rim. The acetabulum was sequentially reamed up to a size 45. A 45 reamer obtained a bleeding espana bchondral bone bed. A 45 trial was placed and had excellent fit and stability. The final implant ch osen was a Trident hemispherical cup 46C. This was impacted into the acetabulum without difficulty. The cup was stable with appropriate anteversion and abduction angle. A Trident X3 0-degree polyethyl jersey liner 32C was chosen as the appropriate implant. This was impacted into the acetabular cup withou t difficulty. Stability of the liner was checked and rechecked and noted to be stable. Attention was given to preparation of the proximal femur. A canal finder was used to enter the proxi mal femur. The femur was sequentially broached up to a size 1. Size 1 broach had excellent fit with appropriate anteversion. A trial 127 neck with a trial 32 +0 head was placed. Lesser troch to cent er of the femoral head measured 50 mm. The hip was reduced and taken through range of motion. The h ip was stable in all positions. There was appropriate soft tissue tension and leg lengths. The tria ls were carefully removed. Final implant chosen was a size 1 Accolade TMZF with 127-degree neck. Th is was impacted into the femoral canal without difficulty. The femoral stem was stable with appropri ate anteversion. A ceramic Biolox delta ceramic head 32 +0 was chosen. This was impacted on to the femoral neck. The lesser troch to center of the femoral head measured 50 mm. The hip was reduced an d taken through a range of motion. The hip was stable in all positions. There were appropriate soft tissue tension and leg lengths. The hip was copiously irrigated with sterile saline. The previousl y tagged capsule and tendons were reapproximated to the posterolateral femur through 2 trochanteric d rill holes. The lateral fascial layer was closed using interrupted #1 Vicryls. The rest of the incis ion was closed in a layered fashion using 0 and 2-0 Vicryls. Skin was closed using running 3-0 Monocr yl and Dermabond. Sterile Adaptic, 4x4s, and paper tape were used to cover the incision. The patien t's anesthesia was reversed without difficulty. She was taken to the PACU in stable condition. Inten ded weightbearing will be weightbearing as tolerated. Intended DVT prophylaxis will be Coumadin with a Lovenox bridge. [id number]/[facility] #: [id number]
[2018-02-23] MEDS: Vitamin THERAPEUTIC TAB PO SCH (08:13)
[2018-02-23] MEDS: Docusate CAP* 100 MG PO SCH ×2 (08:13→20:34)
[2018-02-23] MEDS: Morphine VIAL* 4 MG/ML VIAL (1 ml vial) IV PRN (08:17)
[2018-02-23] MEDS: Magnesium Hydroxide LIQ* 30 ML UDC PO SCH ×2 (09:29→20:34)
[2018-02-23] MEDS: Enoxaparin(*) 30 MG/0.3 ML SYR SUBCUT SCH (11:22)
--- NOTE | 2018-02-23 12:38 | PN ---
Progress Note - Progress Note Date of Service: 02/23/18 SOAP: Subjective: [Pt was seen today sitting up in bed. Pt states that she is having severe pain. She states that she is having trouble controlling her pain with the current pain medication and feels that the pain is coming on before she can have any other pain medication. She would like to get ahead of the pain. She denies any chest pain, SOB. Denies any calf pain. Denies any nausea or vomiting. ] Objective: [General: A&O, NAD MSK, RLE: Dressing is c/d/i. + df/pf. No tenderness to calf palpation. 2+ DP pulse. sensation intact to light touch. ] Vital Signs Temp 98.6 F 02/23/18 11:12 Pulse 70 02/23/18 11:12 Resp 18 02/23/18 12:22 BP 132/47 02/23/18 11:12 Pulse Ox 92 02/23/18 11:12 Intake & Output 02/22/18 02/23/18 02/23/18 18:59 06:59 18:59 Intake Total 2140 2048 Output Total 550 875 350 Balance 1590 1173 -350 Weight 178 lb Intake: IV Fluids 1850 948 LR 1800 948 NS 50ML, Cefazolin 2G 50 Oral 290 1100 Output: Ramírez 250 875 350 Estimated Blood Loss 300 Other: # Bowel Movements 0 Assessment: [POD 1 - RTHA ] Plan: [- PT/OT - 15 mg MS Contin added every 12 hours to help with pain - Coumadin 10mg tonight - Continue with remainder of current pain medication ]
[2018-02-23] MEDS ORDERED: Morphine TAB Extended Release (*) 30 MG TAB.ER PO SCH (13:00)
[2018-02-23] MEDS: Morphine TAB Extended Release (*) 15 MG TAB.ER PO SCH (14:05)
[2018-02-23] MEDS ORDERED: Warfarin TAB(*) 4 MG PO ONE (17:00)
[2018-02-24] MEDS: oxyCODONE TAB* 5 MG TAB PO PRN ×2 (00:16→05:59)
[2018-02-24] MEDS: Morphine TAB Extended Release (*) 15 MG TAB.ER PO SCH ×2 (02:03→14:25)
[2018-02-24] MEDS: oxyCODONE/Acetamin 5/325 MG* TAB PO PRN ×5 (04:06→21:05)
[2018-02-24] MEDS: Acetaminophen TAB* 325 MG PO SCH ×3 (04:19→21:06)
[2018-02-24 05:44] LABS: Hematocrit 31 % (35-47); Hemoglobin 10.4 g/dl (12.0-16.0); Mean Platelet Volume 9.6 um3 (7.4-10.4); Platelet Count 121 10^3/ul (150-450)
[2018-02-24 05:47] LABS: INR 1.59 (0.77-1.02)
[2018-02-24] MEDS: Levothyroxine TAB* 50 MCG TAB PO SCH (05:56)
[2018-02-24] MEDS: Docusate CAP* 100 MG PO SCH ×2 (08:03→21:04)
[2018-02-24] MEDS: Vitamin THERAPEUTIC TAB PO SCH (08:03)
[2018-02-24] MEDS: Magnesium Hydroxide LIQ* 30 ML UDC PO SCH ×2 (08:04→21:05)
--- NOTE | 2018-02-24 10:21 | PN ---
Progress Note - Progress Note Date of Service: 02/24/18 SOAP: Subjective: [Pt is doing well. Pain is controlled better with MS contin. Progressing well with PT. No Bm yet but passing flatus. Denies F/C, CP/SOB, or calf pain Objective: PE- 68 y/o WDWN F NAD, A&Ox3 RLE- dressing changed, inc c/d/i, calf soft NT, +DF/PF, +2 Dp pulse, SILT distally Vital Signs Temp Pulse Resp BP Pulse Ox 99.0 F 76 16 121/51 88 02/24/18 07:46 02/24/18 07:46 02/24/18 08:11 02/24/18 07:46 02/24/18 07:46 Laboratory Results - last 24 hr 02/24/18 02/24/18 05:25 05:25 Hgb 10.4 L Hct 31 L Plt Count 121 L MPV 9.6 INR (Anticoag Therapy) 1.59 H Assessment: [POD 2 - RTHA ] Plan: - Cont PT/OT- WBAT - Cont 15 mg MS Contin and percocet/oxycodone for pain - Cont lovenox, Coumadin 8 mg tonight -low grade temp improving, will cont monitor -Plan Dc to SNF Monday
[2018-02-24] MEDS: Enoxaparin(*) 30 MG/0.3 ML SYR SUBCUT SCH (12:11)
[2018-02-24] MEDS ORDERED: Warfarin TAB(*) 4 MG PO ONE (17:00)
[2018-02-25] MEDS: Morphine TAB Extended Release (*) 15 MG TAB.ER PO SCH ×2 (02:21→14:03)
[2018-02-25] MEDS: oxyCODONE/Acetamin 5/325 MG* TAB PO PRN ×5 (03:48→20:28)
[2018-02-25] MEDS: Acetaminophen TAB* 325 MG PO SCH ×3 (03:48→20:25)
[2018-02-25] MEDS: Levothyroxine TAB* 50 MCG TAB PO SCH (05:51)
[2018-02-25 06:27] LABS: Hematocrit 28 % (35-47); Hemoglobin 9.6 g/dl (12.0-16.0); Mean Platelet Volume 9.5 um3 (7.4-10.4); Platelet Count 130 10^3/ul (150-450)
[2018-02-25 06:33] LABS: INR 3.58 (0.77-1.02)
[2018-02-25] MEDS: Vitamin THERAPEUTIC TAB PO SCH (08:00)
[2018-02-25] MEDS: Magnesium Hydroxide LIQ* 30 ML UDC PO SCH ×2 (08:00→20:30)
[2018-02-25] MEDS: Docusate CAP* 100 MG PO SCH ×2 (08:34→20:29)
[2018-02-25] MEDS: oxyCODONE TAB* 5 MG TAB PO PRN (10:38)
[2018-02-25] MEDS: Enoxaparin(*) 30 MG/0.3 ML SYR SUBCUT SCH (11:19)
--- NOTE | 2018-02-25 11:19 | PN ---
Progress Note - Progress Note Date of Service: 02/25/18 SOAP: Subjective: Pt is doing well. Pain is controlled. Denies CP/SOB, F/C or calf pain. Doing well otherwise Objective: 68 y/o WDWN F NAD, A&Ox3 RLE-dressing c/d/i, calf soft NT, + ankle DF/PF, NVI, SILT distally Vital Signs Temp Pulse Resp BP Pulse Ox 98.5 F 80 16 136/70 91 02/25/18 07:49 02/25/18 07:49 02/25/18 10:38 02/25/18 07:49 02/25/18 08:00 Laboratory Results - last 24 hr 02/25/18 02/25/18 05:52 05:52 Hgb 9.6 L Hct 28 L Plt Count 130 L MPV 9.5 INR (Anticoag Therapy) 3.58 H Assessment: [POD 3 - RTHA ] Plan: - Cont PT/OT- WBAT - Cont 15 mg MS Contin and percocet for pain - DC lovenox, hold Coumadin tonight -temp normalized -Plan Dc to SNF Monday
[2018-02-26] MEDS: oxyCODONE/Acetamin 5/325 MG* TAB PO PRN ×6 (00:30→21:26)
[2018-02-26] MEDS: Morphine TAB Extended Release (*) 15 MG TAB.ER PO SCH ×2 (02:31→13:54)
[2018-02-26] MEDS: Acetaminophen TAB* 325 MG PO SCH ×3 (04:28→21:57)
[2018-02-26] MEDS: Levothyroxine TAB* 50 MCG TAB PO SCH (05:18)
[2018-02-26 06:08] LABS: Hematocrit 29 % (35-47); Hemoglobin 9.9 g/dl (12.0-16.0); Mean Platelet Volume 9.4 um3 (7.4-10.4); Platelet Count 161 10^3/ul (150-450)
[2018-02-26 06:14] LABS: INR 4.43 (0.77-1.02)
[2018-02-26] MEDS: Docusate CAP* 100 MG PO SCH ×2 (07:34→19:38)
[2018-02-26] MEDS: Magnesium Hydroxide LIQ* 30 ML UDC PO SCH ×2 (07:34→19:38)
[2018-02-26] MEDS: Vitamin THERAPEUTIC TAB PO SCH (08:39)
--- NOTE | 2018-02-26 10:09 | PN ---
Progress Note - Progress Note Date of Service: 02/26/18 SOAP: Subjective: [] Patient seen at bedside. She is feeling very well with no chest pain, shortness of breath, dizziness, chills or nausea. She is in no pain at rest and tolerable pain with movement. Objective: []General: Well appearing, NAD RLE: right hip dressing CDI without surrounding erythema or discharge. + ecchymosis surrounding without induration or fluctuance.. Thigh is soft. DF/PF intact. DP 2+. Capillary refill less than two seconds distally. Sensation intact distally BL calves supple and nontender without erythema, edema or palpable cords. Assessment: [][POD 4 - RTHA ] Plan: - Cont PT/OT- WBAT - Cont 15 mg MS Contin and percocet for pain as needed - hold coumadin - To [facility] as soon as bed available ( today or tomorrow) Vital Signs Temp 98.2 F 02/26/18 07:41 Pulse 69 02/26/18 07:41 Resp 18 02/26/18 08:39 BP 134/62 02/26/18 07:41 Pulse Ox 96 02/26/18 08:00 Intake & Output 02/25/18 02/26/18 02/26/18 18:59 06:59 18:59 Intake Total 1120 1280 360 Output Total 250 200 Balance 870 1080 360 Intake: Oral 1120 1280 360 Output: Urine 250 200 Other: Estimated Void Medium Large Date of Last Bowel 02/26/18 Movement # Bowel Movements 1 Estimated Stool Amount Small Small Laboratory Last Values Hgb 9.9 g/dl (12.0-16.0) L 02/26/18 05:13 Hct 29 % (35-47) L 02/26/18 05:13 Plt Count 161 10^3/ul (150-450) 02/26/18 05:13 MPV 9.4 um3 (7.4-10.4) 02/26/18 05:13 INR (Anticoag Therapy) 4.43 (0.77-1.02) H 02/26/18 05:13 Sodium 139 mmol/L (135-145) 02/23/18 05:21 Potassium 4.2 mmol/L (3.5-5.0) 02/23/18 05:21 Chloride 108 mmol/L (101-111) 02/23/18 05:21 Carbon Dioxide 29 mmol/L (22-32) 02/23/18 05:21 Anion Gap 2 mmol/L (2-11) 02/23/18 05:21 BUN 13 mg/dL (6-24) 02/23/18 05:21 Creatinine 0.75 mg/dL (0.51-0.95) 02/23/18 05:21 Est GFR ( Amer) 92.7 (>60) 02/23/18 05:21 Est GFR (Non-Af Amer) 76.6 (>60) 02/23/18 05:21 BUN/Creatinine Ratio 17.3 (8-20) 02/23/18 05:21 Glucose 119 mg/dL (70-100) H 02/23/18 05:21 Calcium 8.4 mg/dL (8.6-10.3) L 02/23/18 05:21
[2018-02-27] MEDS: Morphine TAB Extended Release (*) 15 MG TAB.ER PO SCH (02:53)
[2018-02-27] MEDS: Acetaminophen TAB* 325 MG PO SCH ×2 (04:06→11:10)
[2018-02-27] MEDS: oxyCODONE/Acetamin 5/325 MG* TAB PO PRN ×3 (04:08→12:10)
[2018-02-27 05:35] LABS: Hematocrit 29 % (35-47); Hemoglobin 9.7 g/dl (12.0-16.0); Mean Platelet Volume 8.2 um3 (7.4-10.4); Platelet Count 191 10^3/ul (150-450)
[2018-02-27 05:51] LABS: INR 4.49 (0.77-1.02)
[2018-02-27] MEDS: Levothyroxine TAB* 50 MCG TAB PO SCH (06:00)
[2018-02-27] MEDS: Docusate CAP* 100 MG PO SCH ×2 (07:23→11:13)
[2018-02-27] MEDS: Magnesium Hydroxide LIQ* 30 ML UDC PO SCH (07:23)
[2018-02-27] MEDS: Vitamin THERAPEUTIC TAB PO SCH (08:04)
--- NOTE | 2018-02-27 08:07 | PN ---
Progress Note - Progress Note Date of Service: 02/27/18 SOAP: Subjective: []Patient seen at bedside. She is feeling well with no chest pain, shortness of breath, dizziness of nausea. Objective: []General: Well appearing, NAD RLE: right hip dressing changed, incision CDI without surrounding erythema or discharge. + ecchymosis surrounding without induration or fluctuance.. Thigh is soft. DF/PF intact. DP 2+. Capillary refill less than two seconds distally. Sensation intact distally BL calves supple and nontender without erythema, edema or palpable cords. Assessment: [][POD 5 - RTHA ] Plan: - Cont PT/OT- WBAT - Cont 15 mg MS Contin and percocet for pain as needed - hold coumadin again today - To [facility] Vital Signs Temp 98.8 F 02/27/18 03:00 Pulse 78 02/27/18 03:00 Resp 16 02/27/18 08:04 BP 135/57 02/27/18 03:00 Pulse Ox 92 02/27/18 03:00 Intake & Output 02/26/18 02/27/18 02/27/18 18:59 06:59 18:59 Intake Total 600 1030 Output Total 1050 0 Balance -450 1030 Intake: Oral 600 1030 Output: Urine 1050 0 Other: # Bowel Movements 1 0 Estimated Stool Amount Small Laboratory Last Values Hgb 9.7 g/dl (12.0-16.0) L 02/27/18 05:28 Hct 29 % (35-47) L 02/27/18 05:28 Plt Count 191 10^3/ul (150-450) 02/27/18 05:28 MPV 8.2 um3 (7.4-10.4) 02/27/18 05:28 INR (Anticoag Therapy) 4.49 (0.77-1.02) H 02/27/18 05:28 Sodium 139 mmol/L (135-145) 02/23/18 05:21 Potassium 4.2 mmol/L (3.5-5.0) 02/23/18 05:21 Chloride 108 mmol/L (101-111) 02/23/18 05:21 Carbon Dioxide 29 mmol/L (22-32) 02/23/18 05:21 Anion Gap 2 mmol/L (2-11) 02/23/18 05:21 BUN 13 mg/dL (6-24) 02/23/18 05:21 Creatinine 0.75 mg/dL (0.51-0.95) 02/23/18 05:21 Est GFR ( Amer) 92.7 (>60) 02/23/18 05:21 Est GFR (Non-Af Amer) 76.6 (>60) 02/23/18 05:21 BUN/Creatinine Ratio 17.3 (8-20) 02/23/18 05:21 Glucose 119 mg/dL (70-100) H 02/23/18 05:21 Calcium 8.4 mg/dL (8.6-10.3) L 02/23/18 05:21
--- NOTE | 2018-02-27 09:30 | DS ---
DISCHARGE SUMMARY: DATE OF ADMISSION: 02/22/18 DATE OF DISCHARGE: 02/27/18 PROVIDER: Dr. Wendy Burk. SURGEON: Dr. Wendy Burk* (dictated by TRISTON Fournier). PHYSICAL SCIENCE TECHNICIAN: TRISTON Dumont PREOPERATIVE DIAGNOSIS: Severe end-stage degenerative osteoarthritis of the right hip. OPERATIVE PROCEDURE: Right total hip arthroplasty. INDICATION: Ms. Mccarthy is a 68-year-old female with years of increasingly severe right hip pain. She failed conservative treatment with antiinflammatories, pain medications, and physical therapy. She therefore elected to undergo a right total hip arthroplasty. HOSPITAL COURSE: The patient was admitted to [facility] on . She underwent a right total hip arthroplasty without complication. On postop day 1, she was well-appearing in no acute distress. Right lower extremity clean, dry, and intact. Dorsiflexion and plantarflexion intact. On postop day 2 the dressing was changed. Incision was clean, dry, and intact. Calf was soft and nontender. Dorsiflexion and plantarflexion intact. 2+ dorsalis pedis pulse. Sensation intact distally. Dressing again changed on postop day 3. Dressing again changed on postop day 4. Incision was clean, dry , and intact. No surrounding erythema or discharge. There was some ecchymosis around the incision site, but no induration or fluctuance. On postop day 5, the patient is well-appearing in no acute distress. Right hip dressing was changed, it was clean, dry, and intact. Temperature 98.8, pulse 78, respiratory rate 16, blood pressure 139/67, pulse ox 92. The patient is feeling well. No chest pain, shortness of breath, dizziness, or nausea. Hemoglobin 9.7, hematocrit 29, INR 4.49. The patient seemed to be medically and orthopedically stable for discharge to [place]. DISCHARGE MEDICATIONS: 1. Levothyroxine 50 micrograms p.o. q.a.m. 2. Vitamin B12 of 5000 micrograms sublingually daily. 3. Calcium D3. 4. Mag ox. 5. Zinc. 6. Copper marge bor one each p.o. 1800. 7. Ascorbic acid 500 mg p.o. q.a.m. 8. Multivitamin 1 each p.o. every 1800. 9. Glucosamine chondroitin 1 tab p.o. b.i.d. 10. Amoxicillin 1000 mg per instructions p.r.n. 11. Vitamin D3 of 1000 units p.o. q.a.m. 12. Acetaminophen 650 mg p.o. every 8 hours p.r.n. max daily dose of 4000 mg from all sources. 13. Docusate 100 mg p.o. b.i.d. p.r.n. 14. Morphine tablet extended release 15 mg p.o. every 12 hours p.r.n.; this should be given for no more than 5 days after discharge. 15. Percocet 5/325 one to two tabs every 4 to 6 hours as needed for pain, max daily dose of 10. 16. Warfarin 2 mg tablets 0 to 5 tabs daily, dose depends on INR. DISCHARGE PLAN: The patient will be weightbearing as tolerated. Okay to shower on postop day 3. Keep incision clean, dry, and intact. Do not submerge the wound. Hip precautions to be continued. Nursing to do INRs on Mondays and . Coumadin dosing: February 27 0 mg , February 28 0 mg, March 01 recheck INR for further dosing instructions. Pain control: Morphine extended release 15 mg every 8 hours for no more than 5 days. Also hold for sedation. Percocet 5/325 one to two tabs by mouth every 4 to 6 hours as needed for pain, max of 10 tabs per day. Followup with Dr. Burk in 10 to 14 days. TRISTON YATES [id number]/[facility] #: [id number] [facility]
[2018-02-27 12:12] VITALS: BP 128/64
== END 2018-02-27 12:50 | DRG 470 ==
LOC: AA 08:34 → SSU 15:53
PROVIDERS: ADMIT Orthopaedic Surgery Adult Reconstructive Orthopaedic Surgery; ATTEND Orthopaedic Surgery Adult Reconstructive Orthopaedic Surgery
PROC: 0SR904A Replacement of Right Hip Joint with Ceramic on Polyethylene Synthetic Substitute, Uncemented, Open Approach (ICD-10-PCS; principal; 2018-02-22 11:00)
DX: M16.11 Unilateral primary osteoarthritis, right hip (principal); E78.5 Hyperlipidemia, unspecified; E89.0 Postprocedural hypothyroidism; G47.33 Obstructive sleep apnea (adult) (pediatric); M25.751 Osteophyte, right hip; Z96.642 Presence of left artificial hip joint; Z88.1 Allergy status to other antibiotic agents; Z91.013 Allergy to seafood; Z91.09 Other allergy status, other than to drugs and biological substances; Z82.49 Family history of ischemic heart disease and other diseases of the circulatory system; Z72.89 Other problems related to lifestyle; Z79.01 Long term (current) use of anticoagulants
CPT/HCPCS: 36415; 72170; 80048; 85014; 85018; 85049; 85610; 88304; 88311; A9270-GY; C1776; G8978-GP-CM; G8979-GP-CJ; G8987-GO-CJ; G8988-GO-CH; J0690; J1650; J2250; J2270; J2704; J3010

== ENCOUNTER 2018-09-24 18:50 | Observation (INO) | payer MEDICARE, OTHER ==
[2018-09-24 21:02] LABS: ABS Basophils 0.1 10^3/ul (0-0.2); ABS Eosinophils 0.1 10^3/ul (0-0.6); ABS Lymphocytes 1.3 10^3/ul (1.0-4.8); ABS Monocytes 0.6 10^3/ul (0-0.8); ABS Neutrophils 4.5 10^3/ul (1.5-7.7); ABS Nucleated RBC 0 10^3/ul; Eosinophil % 2.3 %; Hematocrit 41 % (35-47); Hemoglobin 13.5 g/dl (12.0-16.0); Lymphocyte % 19.5 %; Mean Corpuscular HGB Conc 33 g/dl (31-36); Mean Corpuscular Hemoglobin 31 pg (27-31); Mean Corpuscular Volume 92 fL (80-97); Mean Platelet Volume 9.2 fL (7.4-10.4); Nucleated Red Blood Cells % 0.1; Platelet Count 198 10^3/ul (150-450); Red Blood Count 4.42 10^6/ul (4.00-5.40); Red Cell Distribution Width 14 % (10.5-15); White Blood Count 6.6 10^3/ul (3.5-10.8)
--- NOTE | 2018-09-24 21:26 | ED ---
Neurological HPI - HPI Summary HPI Summary: The patient is a 68 y/o F presenting to [facility] accompanied by neighbor with a chief complaint of sudden episodes of temporary forgetfulness and confusion today around 1600. She had just gotten home from [place], which she was driving with a friend. While she was moving things between her car and home, her neighbor noticed that the patient was having difficulty remembering what she was doing as she kept asking repetitive questions and wondering if the time was correct because she couldn't remember. The patient states that she does not remember any of this, but she knows the time and date now. She denies changes in gait or speech, headache, and changes in BM or urination. She additionally c/ o dizziness and SOB with walking up the stairs to her home. She denies any previous neurological deficits. - History of Current Complaint Chief Complaint: EDAltMentalStatus Stated Complaint: CONFUSION PER FRIEND Time Seen by Provider: 09/24/18 20:44 Hx Obtained From: Patient Onset/Duration: Sudden Onset, Started hours ago - at 1600, Resolved Onset Severity: Moderate Current Severity: None Pain Intensity: 0 Pain Scale Used: 0-10 Numeric Character: Dizzy, Confusion Aggravating: Nothing Alleviating: Nothing Associated Signs and Symptoms: Positive: Confusion, Dizziness, Shortness of Breath - due to exertion. Negative: Unsteady Gait, Headache, Impaired Speech - Additional Pertinent History Primary Care Physician: [id number] - Allergy/Home Medications Allergies/Adverse Reactions: Allergies Allergy/AdvReac Type Severity Reaction Status Date / Time Fish Containing Products Allergy Severe throat Verified 02/22/18 08:48 feels itchy Tetracyclines Allergy Severe Nausea Verified 02/22/18 08:48 PMH/Surg Hx/FS Hx/Imm Hx Endocrine/Hematology History: Reports: Hx Thyroid Disease - nodule- hemithyroidectomy Denies: Hx Diabetes Cardiovascular History: Denies: Hx Hypertension Respiratory History: Reports: Hx Sleep Apnea Denies: Hx Chronic Obstructive Pulmonary Disease (COPD) History: Denies: Hx Dialysis Musculoskeletal History: Reports: Hx Arthritis - knees and hips, Other Musculoskeletal History - right foot plantar fasciatis Denies: Hx Rheumatoid Arthritis, Hx Osteoporosis Sensory History: Reports: Hx Cataracts - early stages both eyes, Hx Contacts or Glasses - glasses Denies: Hx Hearing Aid Opthamlomology History: Reports: Hx Cataracts - early stages both eyes, Hx Contacts or Glasses - glasses Neurological History: Denies: Hx Dementia, Hx Seizures - Cancer History Hx Chemotherapy: No Hx Radiation Therapy: No - Surgical History Surgery Procedure, Year, and Place: [place]lect[place] 1953 [place] [facility] [facility] [place] replacement [facility] Hx Anesthesia Reactions: No Infectious Disease History: No Infectious Disease History: Denies: Traveled Outside the [place] in Last 30 Days - Family History Known Family History: Negative: Diabetes - Social History Alcohol Use: Weekly Substance Use Type: Reports: None Smoking Status (MU): Never Smoked Tobacco Review of Systems Positive: Shortness Of Breath Positive: Other - NEGATIVE: changes in BM Positive: other - NEGATIVE: changes in urination Neurological: Other - POSITIVE: forgetfulness, dizziness; NEGATIVE: change in gait Negative: Headache, Slurred Speech All Other Systems Reviewed And Are Negative: Yes Physical Exam - Summary Physical Exam Summary: Appearance: Well-appearing, Well-nourished, lying in bed comfortably Skin: Warm, dry, no obvious rash Eyes: sclera anicteric, no conjunctival pallor ENT: mucous membranes moist, pharynx appears normal Neck: Supple, nontender Respiratory: Clear to auscultation, no signs of respiratory distress Cardiovascular: Normal S1, S2. No murmurs. Normal distal pulses in tibial and radial bilaterally. Abdomen: Soft, nontender, normal active bowel sounds present Musculoskeletal: Normal, Strength/ROM Intact, Motor function in all 4 extremities is normal and symmetric. There is no rigidity or tremor noted. Neurological: A&Ox3, awake and alert, mentation is normal, speech is fluent and appropriate, Level of consciousness nml. The patient is alert and oriented. Cranial nerves are grossly intact. Gaze is conjugate and without nystagmus. Peripheral vision is intact to confrontation. There are no gross sensory abnormalities to light touch. There is no truncal or fine motor ataxia. Gait is normal. GCS: 15. NIH: 0. Psychiatric: affect is normal, does not appear anxious or depressed Triage Information Reviewed: Yes Vital Signs On Initial Exam: Initial Vitals Temp Pulse Resp BP Pulse Ox 98.7 F 87 18 149/84 96 09/24/18 18:58 09/24/18 18:58 09/24/18 18:58 09/24/18 18:58 09/24/18 18:58 Vital Signs Reviewed: Yes - [place] Coma Scale Best Eye Response: 4 - Spontaneous Best Motor Response: 6 - Obeys Commands Best Verbal Response: 5 - Oriented Coma Scale Total: 15 Diagnostics - Vital Signs Vital Signs Temp Pulse Resp BP Pulse Ox 09/24/18 18:58 98.7 F 87 18 149/84 96 - Laboratory Lab Results: Lab Results 09/24/18 Range/Units 20:55 WBC 6.6 (3.5-10.8) 10^3/ul RBC 4.42 (4.00-5.40) 10^6/ul Hgb 13.5 (12.0-16.0) g/dl Hct 41 (35-47) % MCV 92 (80-97) fL MCH 31 (27-31) pg MCHC 33 (31-36) g/dl RDW 14 (10.5-15) % Plt Count 198 (150-450) 10^3/ul MPV 9.2 (7.4-10.4) fL Neut % (Auto) 68.0 % Lymph % (Auto) 19.5 % [place] % (Auto) 8.9 % Eos % (Auto) 2.3 % Baso % (Auto) 1.3 % Absolute Neuts (auto) 4.5 (1.5-7.7) 10^3/ul Absolute Lymphs (auto) 1.3 (1.0-4.8) 10^3/ul Absolute Monos (auto) 0.6 (0-0.8) 10^3/ul Absolute Eos (auto) 0.1 (0-0.6) 10^3/ul Absolute Basos (auto) 0.1 (0-0.2) 10^3/ul Absolute Nucleated RBC 0 10^3/ul Nucleated RBC % 0.1 Result Diagrams: 09/24/18 20:55 09/24/18 20:55 Lab Statement: Any lab studies that have been ordered have been reviewed, and results considered in the medical decision making process. - CT Brain CT CT Interpretation Completed By: Radiologist Summary of CT Findings: 1. No evidence of acute intracranial hemorrhage. 2. Mild cerebellar hemispheric volume loss. ED physician has reviewed this report. - EKG 2105 Cardiac Rate: NL - 65 BPM EKG Rhythm: Sinus Rhythm Summary of EKG Findings: NSR at 65 BPM, P waves, QRS complex, and T waves are within normal limits, T waves and intervals are normal, no ischemic changes. This is a normal EKG. NIH Scale - NIH Scale Level of Consciousness: Alert/Keenly Responsive Ask Patient the Month and His/Her Age: Both Correct Ask Pt to Open/Close Eyes and Track Fitter/Release Non-Paretic Hand: Both Correctly Best Gaze (Only Horizontal Eye Movement): Normal Visual Field Testing: No Visual Loss Facial Paresis-Pt to Smile & Close Eyes or Grimace Symmetry: Normal/Symmetrical Motor Function - Right Arm: No Drift-Holds 10 Seconds Motor Function - Left Arm: No Drift-Holds 10 Seconds Motor Function - Right Leg: No Drift-Holds 10 Seconds Motor Function - Left Leg: No Drift-Holds 10 Seconds Limb Ataxia-Must be out of Proportion to Weakness Present: Absent Sensory (Use Pinprick to Test Arms/Legs/Trunk/Face): Normal Best Language (Describe Picture, Name Items): No Aphasia Dysarthria (Read Several Words): Normal Extinction and Inattention: No Abnormality Total Score: 0 Re-Evaluation - Re-Evaluation First Eval Re-Evaluation Time: 00:30 Change: Unchanged Comment: I spoke with the patient concering imaging results and admission. Course/Dx - Course Course Of Treatment: The patient is a 68 y/o F accompanied by neighbor with a chief complaint of sudden episodes of temporary forgetfulness and confusion today around 1600. She had just gotten home from [place], which she was driving with a friend. While she was moving things between her car and home, her neighbor noticed that the patient was having difficulty remembering what she was doing as she kept asking repetitive questions and wondering if the time was correct because she couldn't remember. The patient states that she does not remember any of this, but she knows the time and date now. She denies changes in gait or speech, headache, and changes in BM or urination. She additionally c/ o dizziness and SOB with walking up the stairs to her home. She denies any previous neurological deficits. Upon physical examination, the patient exhibits no acute abnormalities; GCS: 15, NIH: 0. Bloodwork reveals slightly elevated BUN /Creatinine. UA shows trace ketones, leukocyte esterase, epithelial cells, and ascorbic acid. EKG is normal. Brain CT reveals no significant changes. I consulted with Dr. Emerson, neurologist, who suggests admission at 0055, and with Dr. Hunter, hospitalist, who accepts patient at 0100. She is diagnosed with transient global amnesia. She agrees with plan and understands the need for admission at this time. - Diagnoses Provider Diagnoses: Transient global amnesia - Physician Notifications Discussed Care Of Patient With: Lorenzo Emerson - neurologist Time Discussed With Above Provider: 00:55 Instructed by Provider To: Other - I spoke with Dr. Emerson who suggests admission. I consulted with Dr. Hunter, who accepts the patient for admission at 0100. Discharge - Sign-Out/Discharge Documenting (check all that apply): Patient Departure - Patient will be admitted [place] [facility] [place]. Patient Received Moderate/Deep Sedation with Procedure: No - Discharge Plan Condition: Stable Disposition: ADMITTED TO [facility] - Billing Disposition and Condition Condition: STABLE Disposition: Admitted to [facility] - Attestation Statements Document Initiated by Scribe: Yes Documenting Scribe: Cira Vu Provider For Whom Ivis is Documenting (Include Credential): Dr. Dennis Berg MD Scribe Attestation: Cira Abrams, scribed for Dr. Dennis Berg MD on 09/26/18 at 0419. Scribe Documentation Reviewed: Yes Provider Attestation: The documentation as recorded by the Cira pak accurately reflects the service I personally performed and the decisions made by me, Dr. Dennis Berg MD Status of Scribe Document: Viewed
[2018-09-24 21:27] LABS: Albumin 4.2 g/dL (3.2-5.2); Albumin/Globulin Ratio 1.8 (1-3); BUN/Creatinine Ratio 26.8 (8-20); Calcium 9.4 mg/dL (8.6-10.3); EGFR African American 68.9 (>60); EGFR Non-African American 56.9 (>60); Globulin 2.4 g/dL (2-4); Potassium 4.2 mmol/L (3.5-5.0); Total Bilirubin 0.4 mg/dL (0.2-1.0); Total Protein 6.6 g/dL (6.4-8.9)
[2018-09-24 21:39] LABS: Urine Appearance Clear; Urine Bacteria Absent (Absent); Urine Bilirubin Negative (Negative); Urine Blood Negative (Negative); Urine Color Yellow; Urine Glucose Negative (Negative); Urine Ketones Trace (Negative); Urine Nitrite Negative (Negative); Urine Protein Negative (Negative); Urine Red Blood Cell Absent (Absent); Urine Specific Gravity 1.027 (1.010-1.030); Urine Squamous Epithelial Cell Present (Absent); Urine Urobilinogen Negative (Negative); Urine White Blood Cell Trace(0-5/hpf) (Absent)
[2018-09-25] MEDS ORDERED: NS 0.9% 1000 ML** 1,000 ML IV SCH (04:15)
[2018-09-25 05:18] LABS: HDL Cholesterol 53.9 mg/dL
[2018-09-25 05:55] LABS: TSH (Thyroid Stimulating Horm) 3.6 mcIU/mL (0.34-5.60)
[2018-09-25] MEDS: Levothyroxine TAB* 50 MCG TAB PO SCH (06:14)
[2018-09-25] MEDS: Enoxaparin(*) 40 MG/0.4 ML SYR SUBCUT SCH ×2 (06:15→07:40)
--- NOTE | 2018-09-25 07:08 | HP ---
ADMITTING HISTORY AND PHYSICAL: DATE OF ADMISSION: 09/25/18 CHIEF COMPLAINT: Mental status change. HISTORY OF PRESENT ILLNESS: The patient is a 68-year-old lady with history of sleep apnea; on CPAP, hypercholesterolemia, and hypothyroidism who was admitted and discharged on 02/22/18 and 02/27/18 for an elective right total hip arthroplasty where she has reported to have done well. She was in her usual state of health and she usually travels this time of the [place] back to [place], and at around 1600, she arrived in [place] and her friend noticed that she became more forgetful and confused, and while she was moving things between her car and her home, her neighbor noticed that the patient was having difficulty remembering what she was doing and kept asking repetitive questions and wondering if the time was correct because she could not remember. In the ED, supposedly her mental status change had resolved ; but, on my evaluation, the patient still appeared confused and asked many questions, appeared anxious, and once again asked if the time was correct. PAST MEDICAL AND SURGICAL HISTORY: 1. Hypercholesterolemia. 2. TASNEEM, on CPAP. 3. Hypothyroidism. 4. Status post bilateral total hip arthroplasty. 5. Status post partial thyroidectomy. 6. Tonsillectomy. 7. . MEDICATIONS: Her current home medications are as follows: 1. Cholecalciferol. 2. Ascorbic acid. 3. Vitamin B12. 4. Levothyroxine. 5. Glucosamine, chondroitin supplementations. ALLERGIES: To TETRACYCLINE, fish-derived products, and cats. FAMILY HISTORY: Coronary artery disease. SOCIAL HISTORY: She is 68 years old. She lives alone. She denies history of smoking, alcohol abuse, nor drug abuse. REVIEW OF SYSTEMS: She mentions that, other than anxiety, she does not have any headache, dizziness, fevers, chills, nausea, vomiting, chest pain, shortness of breath, increased coughing or sputum production, abdominal pain, diarrhea, constipation, pain, and/or increased frequency on urination, myalgias , arthralgias, throat pain, or new skin lesions. The rest of the 14-point review of systems are, otherwise, unremarkable. PHYSICAL EXAMINATION GENERAL APPEARANCE: The patient is awake, oriented x3, but somewhat confused and appears anxious. VITAL SIGNS: Reveals the most recent vital signs of records with blood pressure of 129/67 from 157/78 and 160/85, heart rate of 73, 19 per minute respiratory rate, saturating at 91%. HEENT: Normocephalic, atraumatic. PERRLA. Extraocular muscles intact. Negative for icterus. Moist oral mucosa. Negative throat erythema. NECK: Soft, supple with no cervical lymphadenopathy. No JVD. CHEST: Clear to auscultation bilaterally. Good air entry. No wheezes, rales, or rhonchi. HEART: S1, S2, within normal limits. Regular rate and rhythm. No murmurs, rubs, or gallops. ABDOMEN: Soft, nondistended, nontender. Normoactive bowel sounds x4 quadrants. EXTREMITIES: No cyanosis or clubbing, with 2+ bilateral lower extremity edema. PSYCHIATRIC: No active psychosis, depression, suicidal or homicidal ideations. The patient appears to be distracted and/or anxious during my interaction and would ask whether the time is correct, somewhat similar to her presentation. DIAGNOSTIC STUDIES/LAB DATA: Most recent pertinent laboratory shows CBC with WBC, H and H, and platelet counts that were normal. Sodium and potassium were normal. BUN and creatinine are 26 and 0.9. UA shows specific gravity of 1.027 with normal wbc count. CT of the head shows no acute intracranial hemorrhage with mild cerebellar hemispheric volume loss. EKG shows 65 beats per minute, no ST segment changes, QTc of 411. ASSESSMENT AND PLAN: The patient is a 68-year-old lady with history of hypercholesterolemia, obstructive sleep apnea; on CPAP, and hypothyroidism being admitted for mental status changes. 1. Mental status change. I am unclear whether she is back to her baseline at this point given there is no family or friends right by her bedside to confirm. However, she still somewhat presents with some of the story that brought her to the ED and I agree with Dr. Emerson that the patient should undergo cerebrovascular accident/transient ischemic attack workup. Hence, an MRI has been ordered, 2D echo with bubble study, and carotid Doppler as well as fasting lipid levels and we will continue watchful waiting, but it is also possible that some of her confusion is due to transient global amnesia exacerbated by mild dehydration given increased BUN as well as elevated urine specific gravity. 2. Bilateral lower extremity edema. This is concerning for DVT given her long trip from [place]. At this time, we will order the Doppler ultrasound and we will order DVT prophylaxis and we will await Doppler ultrasound before fully anticoagulating. 3. Obstructive sleep apnea. Continue CPAP. We will place the patient at 8 cm3 of water given that the patient does not remember her own settings. 4. Acute kidney injury. Please see above discussion. 5. Hypothyroidism. We will check TSH. Continue Synthroid. 6. DVT prophylaxis. We will place the patient on Lovenox subcu for now and to convert to full dose if DVT is found. 7. Physical therapy. As above. [id number]/[facility] #: [id number] [facility]
[2018-09-25] MEDS: Aspirin 81 mg CHEW TAB* 81 MG TAB.CHEW PO SCH (07:40)
[2018-09-25] MEDS: Cyanocobalamin TAB* 500 MCG SCH (07:40)
--- NOTE | 2018-09-25 10:39 | ECHO ---
Patient: MEETA ALEMAN [facility] Rec#: [id number] : 1950 Date: 09/25/2018 Age: 68y Height: 160 cm / 63.0 in Weight: 77 kg / 169.7 lbs Sex: F BSA: 1.8 Room#: [facility] Admit Date#: 09/25/2018 Type: Inpatient Referring: Royce Hunter Reading: Chano Cutler MD [employer]: Loreto Miller RDCS,RDMS CC: Lawson Mckeon MD Transthoracic Echocardiogram Indication: TIA BP: 129/67 HR: 70 Rhythm: NSR Findings History: HLD, TASNEEM, palpitations, edema Technical Comments: The study quality is good. Left Ventricle: The left ventricular chamber size is normal. Mild to moderate concentric left ventricular hypertrophy is observed. Basal interventricular septum shows moderate thickening. Global left ventricular wall motion and contractility are within normal limits. The estimated ejection fraction is 55-60%. There is no consistent Doppler evidence of clinically significant diastolic dysfunction. Left Atrium: The left atrial chamber size is normal. Right Ventricle: The right ventricular chamber size and systolic function are within normal limits. Right Atrium: The right atrial cavity size is normal. A patent foramen ovale is not demonstrated with color Doppler and agitated contrast. Aortic Valve: The aortic valve is trileaflet. Systolic excursion of the aortic valve is normal. There is a trace of aortic regurgitation. There is no evidence of aortic stenosis. Mitral Valve: The mitral valve leaflets are mildly thickened. There is a trace of mitral regurgitation. There is no evidence of mitral stenosis. Tricuspid Valve: The tricuspid valve leaflets are normal. There is no evidence of tricuspid valve regurgitation. Unable to estimate the right ventricular systolic pressure. Pulmonic Valve: The pulmonic valve structure is not well visualized. There is no evidence of pulmonic valve thickening. There is a trace pulmonic regurgitation. Pericardium: There is no significant pericardial effusion. Aorta: The aortic root appears normal. There is no dilatation of the aortic arch. Pulmonary Artery: The main pulmonary artery is not well visualized. Venous: The inferior vena cava appears normal in size. There is a greater than 50% respiratory change in the inferior vena cava dimension. Contrast: Intravenous agitated saline contrast was used to assess intracardiac shunting. Images 1 and 2. Summary: There was not any prior study for comparison. Conclusions Mild to moderate concentric left ventricular hypertrophy is observed. The estimated ejection fraction is 55-60%. The right ventricular chamber size and systolic function are within normal limits. A patent foramen ovale is not demonstrated with color Doppler and agitated contrast. There is a trace of aortic regurgitation. There is a trace of mitral regurgitation. There is no evidence of tricuspid valve regurgitation. There is no significant pericardial effusion. Measurements Name Value Normal Range RVIDd (AP) 2D 1.9 cm (0.9 - 2.6) RVDdMajor (2D) 2.8 cm (2.2 - 4.4) RAd ISD 4CH 4.5 cm (3.4 - 4.9) RA (A4C)W 4 cm (2.9 - 4.6) IVSd (2D) 1.7 cm (0.6 - 1) LVPWd (2D) 1.3 cm (0.6 - 1) LVIDd (2D) 3.9 cm (3.6 - 5.4) LVIDs (2D) 2.6 cm - LV FS (2D) 33 % (25 - 45) Aortic Annulus 1.9 cm (1.4 - 2.6) Ao root diameter (2D) 2.9 cm (2.1 - 3.5) Ascending Ao 2.6 cm (2.1 - 3.4) Aortic arch 2.9 cm (1.8 - 3.4) LA dimension (AP) 2D 3.3 cm (2.3 - 3.8) LAd ISD 4CH 5.3 cm (2.9 - 5.3) LA ISD 4CH W 3.6 cm (2.5 - 4.5) Name Value Normal Range LA ESV BP (A/L) index 29 ml/m2 - Name Value Normal Range MV E-wave Vmax 0.7 m/sec - MV deceleration time 187 msec - MV A-wave Vmax 0.7 m/sec - MV E:A ratio 1 ratio - P. vein S-wave Vmax 0.6 m/sec - P. vein D-wave Vmax 0.4 m/sec - P. vein S:D Vmax ratio 1.6 ratio - P. vein A-wave duration 106 msec - LV septal e' Vmax 0.07 m/sec - LV lateral e' Vmax 0.08 m/sec - LV E:e' septal ratio 10 ratio - LV E:e' lateral ratio 9 ratio - Name Value Normal Range AV Vmax 1.4 m/sec - AV VTI 30 cm - AV peak gradient 8 mmHg - AV mean gradient 5 mmHg - LVOT Vmax 1 m/sec - LVOT VTI 24.5 cm - LVOT peak gradient 4 mmHg - LVOT mean gradient 2 mmHg - KARLA Vmax 0.9 m/sec - Name Value Normal Range RAP 8 mmHg - IVC diameter 1.9 cm - Name Value Normal Range PV Vmax 0.9 m/sec - PV peak gradient 3.2 mmHg -
[2018-09-25] MEDS ORDERED: Enoxaparin(*) 40 MG/0.4 ML SYR SUBCUT SCH (12:00)
[2018-09-25] MEDS: Enoxaparin(*) 100 MG/ML SYR SUBCUT SCH (13:36)
--- NOTE | 2018-09-25 13:43 | PN ---
Subjective Date of Service: 09/25/18 Interval History: Ms. Mccarthy reports feeling ok today. She does not feel confused at all right now. She is able to repeat the events from yesterday leading up to this hospitalization, though this is only because she has been told. She remembers arriving back at her home and carrying luggage down her stairs. The next thing she remembers is her neighbor driving her to the ER. She does remember being in the ER and having some difficulty with memory and small tasks such as getting her insurance card out of her wallet. She has edema and bilat knee pain which is typical for her and not any worse than usual. She denies SOB, CP. No dizziness or headache. Family History: Unchanged from Admission Social History: Unchanged from Admission Past Medical History: Unchanged from Admission Objective Active Medications: Aspirin (Aspirin 81 Mg Chew Tab*) 81 mg PO DAILY KIERAN Cyanocobalamin (Vitamin B12 Tab*) 500 mcg .SEE ORDER DAILY [facility] Enoxaparin Sodium (Lovenox(*)) 85 mg SUBCUT Q12H [facility] Sodium Chloride (Ns 0.9% 1000 Ml) 1,000 mls @ 100 mls/hr IV PER RATE [facility] Levothyroxine Sodium (Synthroid Tab*) 50 mcg PO DAILY@0600 [facility] Vital Signs - 8 hr 09/25/18 09/25/18 05:51 07:22 Temperature 98.7 F 97.8 F Pulse Rate 73 70 Respiratory 19 16 Rate Blood Pressure 129/67 150/61 (mmHg) O2 Sat by Pulse 93 96 Oximetry Oxygen Devices in Use Now: None Appearance: Middle-aged female sitting in bed in NAD Eyes: No Scleral Icterus Ears/Nose/Mouth/Throat: Mucous Membranes Moist Neck: NL Appearance and Movements; NL JVP, Trachea Midline Respiratory: Symmetrical Chest Expansion and Respiratory Effort, Clear to Auscultation Cardiovascular: NL Sounds; No Murmurs; No JVD, RRR Abdominal: NL Sounds; No Tenderness; No Distention Extremities: - - Mild to moderate nonpitting to BLE Skin: No Rash or Ulcers Neurological: Alert and Oriented x 3 Lines/Tubes/Other Access: Clean, Dry and Intact Peripheral IV Nutrition: Taking PO's Result Diagrams: 09/24/18 20:55 09/24/18 20:55 Assess/Plan/Problems-Billing Assessment: Ms. Mccarthy is a 68 yo F with PMH of HLD, TASNEEM on CPAP, and hypothyroidism who presented to the ED with an acute change in mental status and was admitted with concern for TGA, r/o TIA/CVA. - Patient Problems (1) Transient global amnesia Code(s): G45.4 - TRANSIENT GLOBAL AMNESIA Comment: - History very suspicious for TGA apparently lasting less than 1 hour, but will r/o TIA/CVA - MRI brain unremarkable; carotid US without significant stenosis; echo with negative bubble study - Appreciate Neurology consult; recommends EEG - Continue aspirin (2) DVT (deep venous thrombosis) Code(s): I82.409 - ACUTE EMBOLISM AND THOMBOS UNSP DEEP VN UNSP LOWER EXTREMITY Comment: - Provoked; finished a drive back from [place] yesterday, approx 8 hours per day x3 days - Nonpitting edema to BLE, but pt states this is at baseline - BLE US reveals a nonocclusive DVT in the right common femoral - Discussed the need for ongoing anticoagulation with pt - Increase Lovenox to 1mg/kg (3) Hyperlipidemia Code(s): E78.5 - HYPERLIPIDEMIA, UNSPECIFIED Comment: - Not on outpt medication, LDL is satisfactory but total cholesterol is elevated (4) TASNEEM (obstructive sleep apnea) Code(s): G47.33 - OBSTRUCTIVE SLEEP APNEA (ADULT) (PEDIATRIC) Comment: - CPAP (5) Hypothyroidism Code(s): E03.9 - HYPOTHYROIDISM, UNSPECIFIED Comment: - Continue levothyroxine (6) DVT prophylaxis Comment: - Lovenox (7) Full code status Code(s): Z78.9 - OTHER SPECIFIED HEALTH STATUS Comment: Status and Disposition: Observation. Anticipate d/t home when medically stable. Attending: Abiola Florez
--- NOTE | 2018-09-25 14:56 | CONS ---
NEUROLOGY CONSULTATION: DATE OF CONSULT: 09/25/18 REFERRING PHYSICIAN: Dr. Hunter. LOCATION: She is in room 448. CHIEF COMPLAINT: Memory impairment. HISTORY OF PRESENT ILLNESS: Jessenia Mccarthy is a 68-year-old right-handed woman who is accompanied by her friend and presented to the hospital last evening. She had just driven back from [place] where she had been for 2 months and it was a 3-day drive. She was unloading a car full of luggage and other possessions into her [place], which is something like 150 steps down from the parking area. Her friend was helping her. They were in the [place] when she started to ask repetitive questions. She did not realize that she had already changed the clock for daylight savings time. She did not realize that she already turned on the heat and the hot water for the home. She kept asking what day it was. Jessenia remembers unloading the vehicle and then asking repetitive questions to some extent, but does not remember much of the details of the time they were in the home. She remembers her friend wanted to take her to the hospital and she remembers being in the car, but not the complete ride. She remembers arriving in the emergency room and she thinks she remembers everything from about the emergency room and out. She remembers being examined in the emergency room. She thinks her memory is probably back to normal today. Since yesterday, she has been able to recall more of the details of her period of amnesia yesterday, but she still has a lot that she does not recall. Her friend, Nelly, who was with her yesterday, brought up several other things that she still had not remembered. She also said that she did not recall many things yesterday during the peak of her difficulties that she now recalls today. She has a dull headache today. There is no prior history of transient amnesia. There is no history of epilepsy , head trauma, or stroke. There is no history of transient ischemic attack. PAST MEDICAL HISTORY: Notable for bilateral hip replacements, partial thyroidectomy, tonsillectomy, hypercholesterolemia, obstructive sleep apnea, and CPAP. MEDICATIONS: At home consist of: 1. Cholecalciferol. 2. B12. 3. Levothyroxine. 4. Glucosamine chondroitin. ALLERGIES: She is allergic to TETRACYCLINE and SEAFOOD. REVIEW OF SYSTEMS: Negative for cardiac, pulmonary, renal, other GI, or disease. She has a lot of problems with knee pain and is planning to have knee replacements. No recent infections or fevers. No history of head trauma. She does not get bad headaches routinely. She was very fatigued after her trip yesterday. PHYSICAL EXAM: She is well nourished and well hydrated. Most recent temperature 97.8, blood pressure 150/61, heart rate 70 and regular. Respiratory rate is 16 and oxygen saturation is 96% on room air. Neck is supple. Heart is in a regular rhythm without murmurs. There are no cervical bruits. Lungs are clear bilaterally. Oral mucosa is moist and atraumatic. She has a mild bilateral pedal edema. On neurological exam, pupils react equally from 4 to 3 mm. Eye movements and visual bruce are normal. Funduscopic exam is normal bilaterally. There was no ptosis. Facial musculature and facial sensation to light touch is symmetric. Palate and tongue appeared normal, palate raises symmetrically and tongue protrudes in the midline. There is no dysarthria. Hearing is intact bilaterally. Motor exam reveals normal strength and bulk proximally and distally in the limbs. There is pain with movement about the knees. There is no sustention, rest, or action tremor. Finger taps are normal in the hands. Eswykp-rr-rvgp maneuver is normal bilaterally. Lxsn-xk-avxu maneuver is restricted by limited range of motion about the hips, but is not uncoordinated. Reflexes are trace diffusely. Plantar responses are flexor bilaterally. I did not attempt to ambulate her. She is alert and oriented to person, place and time. She knows the date, day of the week, and location. She is able to recall 3/3 items after several minutes. She can spell the word "world" forwards and backwards readily. DIAGNOSTIC STUDIES/LAB DATA: Laboratory data includes a normal CBC on admission , chemistry profile with a nonfasting glucose of 116 and otherwise normal. BUN is slightly elevated at 26 and creatinine at 0.97. Cholesterol this morning is 193 and LDL 82. D-dimer is less than 200. Urinalysis on admission notable for trace ketones, trace leukocyte esterase. Other laboratory data includes an MRI of the brain, which are reviewed and looks completely normal. Carotid ultrasound study is likewise normal without significant stenosis. Transthoracic echocardiogram did not reveal any significant abnormalities. Lower extremity Dopplers reveal nonocclusive thrombus in the right common femoral vein. IMPRESSION: Impression is that of syndrome of transient global amnesia. Her memory seems to be back to normal. I think she should have an EEG as part of her workup. If that is negative, then I think she could go home. Alternatively , if the decision is made to discharge her and have EEG as an outpatient, I think that is perfectly reasonable as the history as described by Jessenia and her friend are pretty classic. I do think she needs to be on antiplatelet therapy based on this event. I have explained the diagnosis and prognosis to Jessenia. I told her it is unlikely to recur. I can see her in followup in the office if she does not get an inpatient EEG and it needs to be arranged. [id number]/[facility] #: [id number] JACKIE
[2018-09-26] MEDS: Enoxaparin(*) 100 MG/ML SYR SUBCUT SCH (01:34)
[2018-09-26] MEDS: Levothyroxine TAB* 50 MCG TAB PO SCH (06:04)
[2018-09-26 07:08] LABS: Hematocrit 38 % (35-47); Hemoglobin 12.7 g/dl (12.0-16.0); Mean Corpuscular HGB Conc 33 g/dl (31-36); Mean Corpuscular Hemoglobin 31 pg (27-31); Mean Corpuscular Volume 92 fL (80-97); Mean Platelet Volume 9.6 fL (7.4-10.4); Platelet Count 161 10^3/ul (150-450); Red Blood Count 4.14 10^6/ul (4.00-5.40); Red Cell Distribution Width 14 % (10.5-15); White Blood Count 4.3 10^3/ul (3.5-10.8)
[2018-09-26 07:19] LABS: Albumin 3.6 g/dL (3.2-5.2); Albumin/Globulin Ratio 1.8 (1-3); BUN/Creatinine Ratio 22.2 (8-20); Calcium 8.8 mg/dL (8.6-10.3); EGFR African American 113.4 (>60); EGFR Non-African American 93.7 (>60); Magnesium 2.1 mg/dL (1.9-2.7); Phosphorus 3.3 mg/dL (2.5-5.0); Total Bilirubin 0.4 mg/dL (0.2-1.0); Total Protein 5.6 g/dL (6.4-8.9)
[2018-09-26] MEDS: Cyanocobalamin TAB* 500 MCG SCH (08:55)
[2018-09-26] MEDS: Apixaban* 5 MG TAB PO SCH ×2 (09:58→21:32)
[2018-09-26] MEDS: Aspirin 81 mg CHEW TAB* 81 MG TAB.CHEW PO SCH (09:58)
[2018-09-26] MEDS ORDERED: Apixaban* 5 MG TAB PO SCH (12:00)
--- NOTE | 2018-09-26 18:55 | PN ---
Subjective Date of Service: 09/26/18 Interval History: Ms. Mccarthy is feeling better today. She is still quite nervous about starting an anticoagulant, but is agreeable. She has concerns r/t easy bruising. She denies any CP, SOB, N/V. No leg pain or discomfort. Family History: Unchanged from Admission Social History: Unchanged from Admission Past Medical History: Unchanged from Admission Objective Active Medications: Apixaban (Eliquis*) 10 mg PO BID [facility] Cyanocobalamin (Vitamin B12 Tab*) 500 mcg .SEE ORDER DAILY [facility] Levothyroxine Sodium (Synthroid Tab*) 50 mcg PO DAILY@0600 [facility] Vital Signs - 8 hr 09/26/18 09/26/18 12:17 15:18 Temperature 97.7 F 97.3 F Pulse Rate 69 72 Respiratory 20 16 Rate Blood Pressure 149/78 151/69 (mmHg) O2 Sat by Pulse 95 95 Oximetry Oxygen Devices in Use Now: None Appearance: Elderly female sitting in bed in NAD Eyes: No Scleral Icterus Ears/Nose/Mouth/Throat: Mucous Membranes Moist Neck: NL Appearance and Movements; NL JVP, Trachea Midline Respiratory: Symmetrical Chest Expansion and Respiratory Effort, Clear to Auscultation Cardiovascular: NL Sounds; No Murmurs; No JVD, RRR Abdominal: NL Sounds; No Tenderness; No Distention Extremities: No Edema Skin: No Rash or Ulcers Neurological: Alert and Oriented x 3 Lines/Tubes/Other Access: Clean, Dry and Intact Peripheral IV Nutrition: Taking PO's Result Diagrams: 09/26/18 06:14 09/26/18 06:14 Assess/Plan/Problems-Billing Assessment: Ms. Mccarthy is a 68 yo F with PMH of HLD, TASNEEM on CPAP, and hypothyroidism who presented to the ED with an acute change in mental status and was admitted with concern for TGA, r/o TIA/CVA. - Patient Problems (1) Transient global amnesia Code(s): G45.4 - TRANSIENT GLOBAL AMNESIA Comment: - History very suspicious for TGA apparently lasting less than 1 hour - MRI brain unremarkable; carotid US without significant stenosis; echo with negative bubble study - Appreciate Neurology consult; EEG today (2) DVT (deep venous thrombosis) Code(s): I82.409 - ACUTE EMBOLISM AND THOMBOS UNSP DEEP VN UNSP LOWER EXTREMITY Comment: - Provoked; finished a drive back from [place] yesterday, approx 8 hours per day x3 days - BLE US reveals a nonocclusive DVT in the right common femoral - Continue Eliquis (3) Hyperlipidemia Code(s): E78.5 - HYPERLIPIDEMIA, UNSPECIFIED Comment: - Not on outpt medication, LDL is satisfactory but total cholesterol is elevated (4) TASNEEM (obstructive sleep apnea) Code(s): G47.33 - OBSTRUCTIVE SLEEP APNEA (ADULT) (PEDIATRIC) Comment: - CPAP (5) Hypothyroidism Code(s): E03.9 - HYPOTHYROIDISM, UNSPECIFIED Comment: - Continue levothyroxine (6) DVT prophylaxis Comment: - Eliquis (7) Full code status Code(s): Z78.9 - OTHER SPECIFIED HEALTH STATUS Comment: Status and Disposition: Observation. Dr. Emerson advised that she could be d/c'd tonight, before the results of EEG, though at this point she does not have a ride home and still has concerns about bleeding and would like to stay another night. Plan for d/c in the AM. Attending: Jefferson Wilson
[2018-09-27] MEDS: Levothyroxine TAB* 50 MCG TAB PO SCH (06:05)
[2018-09-27] MEDS: Apixaban* 5 MG TAB PO SCH (09:26)
[2018-09-27] MEDS: Cyanocobalamin TAB* 500 MCG SCH (09:26)
[2018-09-27 11:31] VITALS: BP 142/75
--- NOTE | 2018-09-27 12:37 | EEG ---
DATE OF STUDY: 09/26/2018. REFERRING PHYSICIAN: Dr. Emerson. CLINICAL HISTORY: Episode of transient amnesia. Rule out seizure disorder. The patient is not on a ny medications. EEG DESCRIPTION: This 18-channel EEG is remarkable for background rhythms consisting of a well-forme d alpha rhythm in the posterior derivations at 10 cycles per second which is symmetric and suppressed by eye opening. Low voltage bifrontal beta rhythms are noted and are symmetric. Activation procedu res are not attempted. The patient does not drowse or sleep during the recording. There are no clini dharmesh events. There are no focal, lateralized, or epileptiform abnormalities. INTERPRETATION: Normal awake EEG. [id number]/[facility] #: [id number]
--- NOTE | 2018-09-27 23:21 | DS ---
CC: Dr. Lawson Mckeon; Dr. Lorenzo Emerson * DISCHARGE SUMMARY: DATE OF ADMISSION: 09/25/18 DATE OF DISCHARGE: 09/27/18 PRIMARY CARE PROVIDER: Dr. Lawson Mckeon. MY ATTENDING WHILE IN THE HOSPITAL: Dr. Jefferson Wilson.* (DICTATED BY TRISTON BANKS) PRIMARY DISCHARGE DIAGNOSES: 1. Transient global amnesia. 2. Lower extremity deep venous thrombosis, nonocclusive. SECONDARY DISCHARGE DIAGNOSES: 1. Hypercholesterolemia. 2. Obstructive sleep apnea. 3. Hypothyroidism. STUDIES DONE WHILE IN THE HOSPITAL: EKG from 09/24/18, read as normal sinus rhythm, normal axis, no ST segment abnormalities, rate 65, QTc of 411, no hypertrophy or enlargement compared to previous exam. There are no significant changes. CT of the brain shows no evidence of acute intracranial hemorrhage, mild cerebral hemispheric volume loss. Venous Doppler study from 09/25/18 read as nonocclusive thrombus to the right common femoral vein. Brain MRI from 09/25 read as unremarkable MRI of the brain, no evidence of effusion. Carotid Doppler study shows no plaque is seen within the right carotid artery, mild plaque in the left carotid bulb, no hemodynamically significant stenosis. Transthoracic echocardiogram read as fvhv-on-koebqrug concentric left ventricular hypertrophy. Estimated ejection fraction 55% to 60%, right ventricular chamber size and systolic function within normal limits. PFO was not demonstrated by color Doppler with iodinated contrast. There is trace aortic regurgitation. There is trace mitral regurgitation. No evidence of tricuspid regurgitation. No significant pericardial effusion. Chest x-ray read as no active cardiopulmonary disease. EEG read as normal awake and drowsy EEG. MEDICATIONS AT DISCHARGE: 1. Levothyroxine 50 mcg p.o. q.a.m. 2. Vitamin B12 5000 mcg sublingual daily. 3. Vitamin C 500 units p.o. q.a.m. 4. Multivitamin 1 tab p.o. daily. 5. Glucosamine chondroitin 1 tab p.o. b.i.d. 6. Vitamin D3 1000 units p.o. q.a.m. 7. Eliquis 10 mg p.o. b.i.d. for 5 days dropping down to 5 mg p.o. b.i.d. thereafter. New medication at discharge: 1. Eliquis. HOSPITAL COURSE: This is a brief summary of the patient's presentation. For more details, please see the history and physical from Dr. Royce Hunter on 09/25/18. In brief, the patient is an 68-year-old female with past medical history significant for the above, who presented to the emergency department after a long drive back from [place], and upon arrival back, she began taking groceries out of her car and was found by her neighbor who came to help her to be forgetful and confused, asking repetitive questions. The patient states that the drive up was even very stressful and that she does not remember being forgetful at that time. The patient was admitted to the hospital , had studies as above, all of which were found negative. The patient was seen in consultation by Dr. Lorenzo Emerson of Neurology, who believes that the patient was able to be clinically diagnosed with transient global amnesia given that CVA/TIA had effectively been ruled out. The patient had an EEG, which was not read at the time of discharge, but afterwards showed no epileptiform discharges. The patient was found to have the lower extremity venous thrombosis , but no PFO, so this is not believed to be a possible embolic source for stroke. The patient was started on Eliquis, which she tolerated well. The patient was stable and amenable for discharge on 09/27/18. PHYSICAL EXAM ON THE DAY OF DISCHARGE: General: The patient is an 68-year-old female who appears stated age and sitting comfortably in bed, in no acute distress. Vital Signs: Temperature 97.6, pulse rate 67, respiratory 16, oxygen saturation 94% on room air, blood pressure 142/75. HEENT: Head normocephalic, atraumatic. Sclerae anicteric. No conjunctival injection. Nasal is moist. Oral mucosa is moist. No pharyngeal erythema, discharge, or exudate. Neck: Supple, nontender. No lymphadenopathy. No carotid bruit auscultated. No JVD. Cardiac: Regular rate and rhythm. No clicks, murmurs, gallops, or rubs. Pulses 2+ in bilateral dorsalis pedis, posterior tibialis, and radial areas. Respiratory: Clear to auscultation bilaterally. No wheezes, rales, or rhonchi. Good air exchange bilaterally. Abdomen: Soft, nontender, nondistended. Bowel sounds present, normoactive in all 4 quadrants. No hepatosplenomegaly. No abdominal bruits auscultated. No hepatojugular reflux. Genitourinary: No suprapubic tenderness or CVA tenderness. Skin: Clean, dry, intact. No rash. Neuro: Cranial nerves II through XII intact. No focal deficits. Alert and oriented x3. Psychiatric: Pleasant and cooperative. DISCHARGE PLAN: The patient will be discharged to home. The patient has been instructed that if possible she should have somebody stay with her in the immediate period after her hospitalization. The patient has a low risk of recurrence of transient global amnesia; however, given the patient's new prescription of Eliquis, she may be at a high risk for self injury if this were to occur. The patient has been counseled about all these and she states understanding. The patient had lipid profile with hemoglobin A1c, which showed prediabetes in her hemoglobin A1c. This should be followed up with primary care provider. The patient had an excellent lipid profile and a normal TSH at 3.6. The patient to return to the hospital for alarming symptoms such as new weakness, passing out, recurrent amnesia. The patient should have a heart healthy diet, caffeine okay, and engage in activities as tolerated. TIME SPENT: Approximately 60 minutes was spent on the discharge of this patient , 30 of which spent [id number] with the patient obtaining history and physical and discussing the treatment plan. TRISTON BANKS [id number]/[facility] #: [id number] JACKIE
== END 2018-09-27 12:12 | disposition home or self-care (01) ==
LOC: ED 18:50 → MEDTELE 09-25 04:03
PROVIDERS: ADMIT Student in an Organized Health Care Education/Training Program; ATTEND Internal Medicine
DX: G45.4 Transient global amnesia (principal); I82.409 Acute embolism and thrombosis of unspecified deep veins of unspecified lower extremity; E78.5 Hyperlipidemia, unspecified; E78.00 Pure hypercholesterolemia, unspecified; G47.33 Obstructive sleep apnea (adult) (pediatric); E03.9 Hypothyroidism, unspecified; Z96.641 Presence of right artificial hip joint; Z96.642 Presence of left artificial hip joint
CPT/HCPCS: 36415; 70450; 70551; 71045; 80053; 80061; 81003; 81015; 82270; 83036; 83605; 83735; 83880; 84100; 84443; 84484; 85025; 85027; 85379; 87086; 93005; 93306; 93880; 93970; 94660; 95816; 96372; 99284; A9270-GY; G0378; J1650

== ENCOUNTER 2018-11-19 09:33 | Emergency (ER) | payer MEDICARE, OTHER ==
--- OUTSIDE RECORDS SUMMARY | 2018-11-19 10:08 | XMS REPORT | Continuity of Care Document ---
:1950 External Reference #:[id number] Author Name Lawson Mckeon M.D. Address [address] [place] [address] Care Team Providers Name Role Phone Laswon Mckeon MD Care Team Information Speech Language Pathologist Unavailable Lawson Mckeon MD Primary Care Physician Unavailable Payers Date Identification Numbers Payment Provider Subscriber Effective: 2014 Policy Number: [id number] [place] PayID: [id number] [address] [place] [address] Effective: 2014 Policy Number: Jailene [facility] Meeta Aleman [id number] [facility] Group Number: [id number] [address] [address] PayID: [place] [address] Advance Directives Description No Information Available Problems Active Problems Provider Date Hypothyroidism Lawson Mckeon M.D. Onset: 04/16/2011 Hyperlipidemia Lawson Mckeon M.D. Onset: 08/10/2012 Dysplasia of cervix Lawson Mckeon M.D. Onset: 08/10/2012 History of polyp of colon Lawson Mckeon M.D. Onset: 10/06/2014 Mixed hyperlipidemia Lawson Mckeon M.D. Onset: 07/14/2015 Palpitations Lawson Mckeon M.D. Onset: 12/01/2015 Obstructive sleep apnea syndrome Lawson Mckeon M.D. Onset: 12/01/2015 Degenerative joint disease involving Lawson Mckeon M.D. Onset: 04/01/2016 multiple joints Adult health examination Lawson Mckeon M.D. Onset: 01/25/2018 Transient global amnesia Lawson Mckeon M.D. Onset: 10/01/2018 Thrombophlebitis of the femoral vein Lawson Mckeon M.D. Onset: 10/01/2018 Persistent atrial fibrillation Lawson Mckeon M.D. Onset: 10/01/2018 Inactive Problems Urinary tract infectious disease Yamileth Alva M.D. Onset: 06/04/2011 Inactive: 04/02/2016 Disorder of skin and/or subcutaneous tissue Lawson Mckeon M.D. Onset: Inactive: 04/02/2016 Acute conjunctivitis Lawson Mckeon M.D. Onset: 02/23/2015 Inactive: 04/02/2016 Arthralgia of the pelvic region and thigh Lawson Mckeon M.D. Onset: 02/23 Inactive: 04/02/2016 Retinal vascular occlusion Lawson Mckeon M.D. Onset: 07/14/2015 Inactive: 04/02/2016 Disorder of thyroid gland Lawson Mckeon M.D. Onset: 11/11/2015 Inactive: 04/02/2016 History of dysplasia of cervix Lawson Mckeon M.D. Onset: 12/01/2015 Inactive: 04/02/2016 Abnormal glucose level Lawson Mckeon M.D. 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[employer] , dat Environmental Hazards Not exposed to any environmental hazards Tobacco Use Start: Unknown Nonsmoker ETOH Use Etoh: Occ Tobacco Use Start: Unknown Patient has never smoked Smoking Status Reviewed: 05/28/18 Patient has never smoked Exercise Type/Frequency Exercises regularly Current Allergies, Adverse Reactions, Alerts Active Allergies Reaction Severity Comments Date Tetracycline GI Upset 04/23/2007 Fish COOKED FISH ONLY Moderate 12/16/2008 Hay Fever 10/06/2014 Cats 10/06/2014 Medications Active Medications SIG Qnty Indications Ordering Provider Date Vitamin D3 High once daily Lawson GerardCory Mckeon, 04/01/2016 Potency M.DCory 1000Unit Capsules Calcium-Vitamin D once by mouth Lawson FCory Edmundvilma, 04/01/2016 daily M.DCory [id number] Tablets Vitamin B-12 once daily Lawson GerardCory Mckeon, 04/01/2016 M.D. 5000mcg Tablets Sub Synthroid take 1 tablet by 90tabs Lawson GerardCory Mckeon, 08/10/2012 50mcg mouth every day M.D. Tablets Glucosamine/Chondro 1 by mouth twice a 715.90 Family Medicine 10/24/2006 [facility]in/[facility] Amoxicillin 4 tablets prior to Unknown 500mg dental procedures Tablets Eliquis 1 by mouth twice a 180tabs Lawson GerardCory Edmundvilma, 5mg Tablets day M.D. Magnesium 1 by mouth every Unknown 250mg day Tablets History Medications Anusol-HC apply to external 30gm B37.3 Sobia 05/28/2018 - 2.5% Cream hemhorroid twice a [facility], 06/11/2018 day x 14 days Afnp-C Diflucan 1 by mouth x1, mr x 2tabs B37.3 Sobia 05/28/2018 - 150mg 1 5-7 days [facility], 06/04/2018 Tablets Afnp-C Shingrix one injection, 1units Lawson FCory 01/25/2018 - 50mcg repeat in 2-6 Lucia Mckeon 10/01/2018 Suspension Rec months Aspirin Ec 1 by mouth as Lawson FCory 04/01/2016 - 325mg needed for pain Lucia Mckeon 01/25/[address] Zinc Gluconate once daily as Lawson FCory 04/01/2016 - 50mg needed for cold Lucia Mckeon 10/01/2018 Tablets symptoms Aspirin 2 by mouth every Lawson FCory 04/01/2016 - 81mg Tablets day Lucia Mckeon 05/28/2018 Vitamin D3 Complete qd Lawson Blackmon 12/01/2015 - Lucia Mckeon 04/01/2016 Tablets Zostavax inject 1dose Lawson Blackmon 07/14/2015 - Lucia Mckeon 04/01/2016 [id number]/0.65ML Solution Rec Erythromycin Apply 1 application 3.500gm Lawson Lorri 02/27/2015 - 5mg/GM into the lower Lucia Mckeon 07/14/2015 Ointment eyelid of affected eye 3 times perday for infection Tobramycin instill 1 drop into 5ml Lawsonandrea Blackmon 02/23/2015 - 0.3% affected eye every Lucia Mckeon 03/02/2015 Solution 4 hours for infection for 3-4 days Nystatin apply twice a day 1bottle Lawsonandrea Blackmon 10/06/2014 - as needed Lucia Mckeon 07/14/2015 [id number]/GM Powder Ciprofloxacin HCL two drops in 1bottle 372.00 [place] 08/17/2013 - affected eye every [facility] 08/16/2014 0.3% Solution four hours for two days then every six hours for 3 days Amoxicillin 1 po bid x 10 20tabs 461.8 [place] 08/17/2013 - 875mg days [facility] 08/16/2014 Tablets Zolpidem Tartrate ER 1 -2po qhs 30tabs Lawson Blackmon 08/10/2012 - Lucia Mckeon 08/17/2013 6.25mg Tablets ER Bactrim DS 1 po bid 12tabs 599.0 Radha Bond 10/18/2011 - 800-160mg please use this Lucia Grover 08/10/2012 Tablets prescription of 12 pills instead of the 6 pill prescription Cipro 1 po bid for 5 days 10tabs 599.0 Yamileth Mclean 06/04/2011 - 250mg Tablets Lucia Alva 06/25/2011 Physical Therapy treatment and Lawson Blackmon 02/24/2011 - evaluation Lucia Mckeon 06/04/2011 strengthening and pool exercise Augmentin 1 bid with food x 20tabs Brittnee Willingham, 08/04/2010 - 500-125mg 10d [employer] 09/10/2010 Tablets Bactroban apply tid to 30mg 709.9 Brittnee Willingham, 07/28/2010 - 2% Ointment affected area for [employer] 09/10/2010 3-5d Doxycycline 1 po bid 2caps Lawson F. 12/16/2008 - Monohydrate Lucia Mckeon 08/03/2009 100mg Capsules Synthroid 1 po qd 90tabs Lawson F. 05/27/2008 - 25mcg Lucia Mckeon 08/10/2012 Tablets Biotin Unknown - 2500mcg 10/01/2018 Capsules Flaxseed Oil 1 by mouth every Unknown - 1000mg day 10/01/2018 Capsules Magnesium Oxide 1 by mouth every Unknown - 200mg day 05/28/2018 Tablets Oxycodone HCL 1 by mouth every 4 Unknown - 5mg hours as needed 05/28/2018 Tablets [place] 3-6-9 Complex qd Unknown - 05/28/2018 Capsules Acidophilus qd Unknown - Probiotic 10/01/2018 Capsules Vitamin B12 every day Unknown - 5000mcg 01/25/2018 Tablets Aspirin 1 by mouth as Unknown - 500mg Tablets needed for pain 04/01/2016 DR Molina Complete 1 by mouth as Unknown - needed 12/01/2015 [id number] Chewtabs Benadryl Allergy 1 by mouth as Unknown - 25mg neededfor allergy 10/01/2018 Tablets symptoms Zinc 1 by mouth every Unknown - 50mg Tablets day as needed 04/01/2016 Soy Protein Unknown - 09/10/2010 Flaxseed Unknown - Misc 09/10/2010 Vitamin C 1 by mouth once a Unknown - 500mg day 10/01/2018 Tablets Calcium-Vitamin D Unknown - 04/01/2016 500-125 Tablets Multi-Vitamin/Minera 1 PO qd Unknown - ls 10/01/2018 Tablets Immunizations CPT Code Status Date Vaccine Lot # [id number] Given 05/01/2018 High-Dose, Influenza Virus Vacccine-fluzone 65 and older 32028 Given 05/03/2017 High-Dose, Influenza Virus Vacccine-fluzone 65 and older 32406 Given 06/02/2016 Zostivax 53532 Given 05/03/2016 High-Dose, Influenza Virus Vacccine-fluzone 65 and older 58788 Given 04/01/2016 Pneumococcal Immunization [id number] 09851 Given 10/06/2014 Pneumococcal Conjugate Vacc-13 [id number] Given 05/04/2011 DO Not Use Split Influenza Virus Vaccine [id number] Given 12/16/2008 Tdap Tetanus, W Pertussis [id number] 24249 Given 05/19/2008 DO Not Use Split Influenza Virus Vaccine [id number] Given 05/26/1999 Tetanus And Diptheria Adult Preservative Free >7Yrs Vital Signs Date Vital Result Comment 11/01/2018 12:34pm BP Systolic 114 mmHg BP Diastolic 70 mmHg Heart Rate 80 /min Body Temperature 98.2 F Respiratory Rate 16 /min Height 62.5 inches 5'2.50" Weight 188.00 lb BMI (Body Mass Index) 33.8 kg/m2 10/01/2018 11:13am BP Systolic 120 mmHg BP Diastolic 68 mmHg Heart Rate 88 /min Body Temperature 98.4 F Respiratory Rate 16 /min Height 62.5 inches 5'2.50" Weight 187.00 lb BMI (Body Mass Index) 33.7 kg/m2 05/28/2018 10:30am BP Systolic 116 mmHg BP Diastolic 68 mmHg Heart Rate 80 /min Body Temperature 98.0 F Respiratory Rate 17 /min Height 62.5 inches 5'2.50" Weight 183.38 lb BMI (Body Mass Index) 33.0 kg/m2 03/16/2018 10:12am BP Systolic 110 mmHg BP Diastolic 70 mmHg Heart Rate 76 /min Body Temperature 97.9 F Respiratory Rate 16 /min Height 62.5 inches 5'2.50" Weight 176.50 lb BMI (Body Mass Index) 31.8 kg/m2 01/25/2018 1:08pm BP Systolic 110 mmHg BP Diastolic 60 mmHg Heart Rate 74 /min Body Temperature 98.6 F Respiratory Rate 16 /min Height 62.5 inches 5'2.50" Weight 174.00 lb BMI (Body Mass Index) 31.3 kg/m2 04/01/2016 8:04am BP Systolic 126 mmHg BP Diastolic 82 mmHg Heart Rate 64 /min Body Temperature 97.9 F Respiratory Rate 18 /min Height 62.5 inches 5'2.50" Weight 186.00 lb BMI (Body Mass Index) 33.5 kg/m2 12/01/2015 11:22am BP Systolic 114 mmHg BP Diastolic 64 mmHg Heart Rate 72 /min Body Temperature 98.1 F Respiratory Rate 16 /min Height 63.25 inches 5'3.25" Weight 180.00 lb BMI (Body Mass Index) 31.6 kg/m2 07/14/2015 4:20pm BP Systolic 120 mmHg BP Diastolic 78 mmHg Heart Rate 78 /min Body Temperature 98.2 F Respiratory Rate 16 /min Height 63.25 inches 5'3.25" Weight 185.25 lb BMI (Body Mass Index) 32.6 kg/m2 02/23/2015 5:17pm BP Systolic 124 mmHg BP Diastolic 82 mmHg Heart Rate 70 /min Body Temperature 97.2 F Respiratory Rate 16 /min Height 63.25 inches 5'3.25" Weight 188.00 lb BMI (Body Mass Index) 33.0 kg/m2 10/06/2014 9:09am BP Systolic 120 mmHg BP Diastolic 70 mmHg Heart Rate 76 /min Body Temperature 98.1 F Respiratory Rate 17 /min Height 63.25 inches 5'3.25" Weight 193.50 lb BMI (Body Mass Index) 34.0 kg/m2 08/17/2013 11:12am BP Systolic 140 mmHg BP Diastolic 70 mmHg Heart Rate 88 /min Body Temperature 98.9 F Respiratory Rate 16 /min Height 63 inches 5'3" Weight 195.00 lb BMI (Body Mass Index) 34.5 kg/m2 08/10/2012 8:13am BP Systolic 120 mmHg BP Diastolic 70 mmHg Heart Rate 72 /min Body Temperature 98.4 F Height 63 inches 5'3" Weight 190.00 lb BMI (Body Mass Index) 33.7 kg/m2 10/18/2011 4:42pm BP Systolic 140 mmHg BP Diastolic 76 mmHg Heart Rate 84 /min Body Temperature 98.9 F Height 63 inches 5'3" Weight 194.00 lb BMI (Body Mass Index) 34.4 kg/m2 06/25/2011 1:55pm BP Systolic 136 mmHg BP Diastolic 66 mmHg Heart Rate 78 /min Body Temperature 99.0 F Height 63 inches 5'3" 06/04/2011 2:01pm BP Systolic 120 mmHg BP Diastolic 74 mmHg Heart Rate 84 /min Body Temperature 99.1 F Height 63 inches 5'3" Weight 183.00 lb BMI (Body Mass Index) 32.4 kg/m2 02/24/2011 12:20pm BP Systolic 130 mmHg BP Diastolic 78 mmHg Heart Rate 76 /min Body Temperature 98.5 F Height 63 inches 5'3" Weight 180.00 lb BMI (Body Mass Index) 31.9 kg/m2 09/10/2010 8:13am BP Systolic 132 mmHg BP Diastolic 82 mmHg Heart Rate 88 /min Height 63 inches 5'3" Weight 186.00 lb BMI (Body Mass Index) 32.9 kg/m2 07/28/2010 2:29pm BP Systolic 138 mmHg BP Diastolic 80 mmHg Heart Rate 80 /min Body Temperature 98.5 F Height 63 inches 5'3" Weight 189.00 lb BMI (Body Mass Index) 33.5 kg/m2 08/03/2009 8:02am BP Systolic 102 mmHg BP Diastolic 74 mmHg Heart Rate 90 /min Body Temperature 98.3 F Height 63 inches 5'3" Weight 184.00 lb BMI (Body Mass Index) 32.6 kg/m2 12/16/2008 6:14pm BP Systolic 126 mmHg BP Diastolic 70 mmHg Heart Rate 76 /min Body Temperature 99.5 F Height 63 inches 5'3" Weight 181.00 lb BMI (Body Mass Index) 32.1 kg/m2 05/27/2008 1:08pm BP Systolic 110 mmHg BP Diastolic 72 mmHg Heart Rate 72 /min Body Temperature 99.0 F Height 63 inches 5'3" Weight 174.00 lb BMI (Body Mass Index) 30.8 kg/m2 04/23/2007 1:22pm BP Systolic 122 mmHg BP Diastolic 70 mmHg Heart Rate 80 /min Height 63 inches 5'3" Weight 168.00 lb BMI (Body Mass Index) 29.8 kg/m2 10/24/2006 2:38pm BP Systolic 112 mmHg BP Diastolic 66 mmHg Heart Rate 84 /min Height 63 inches 5'3" Weight 166.00 lb BMI (Body Mass Index) 29.4 kg/m2 Results Test Date Facility Test Result H/L Range Note Laboratory test finding 10/25/2018 [facility] TSH 3.35 mIU/L 0.50- 6.00 Free T4 1.28 ng/dL 0.75-1.54 Lipid Profile 10/25/2018 [facility] Cholesterol 245 mg/dL High 120- 200 Triglycerides 147 mg/dL 30-200 HDL Cholesterol 58 mg/dL 30-85 LDL (Calculated) 158 CALC High 0-129 VLDL Cholesterol 29 mg/dL 0-50 HDL Risk Factor 4.2 CALC 0.0-4.4 Comprehensive Metabolic Prof 10/25/2018 Flood Shi Sodium 139 mEq/L 134-149 Potassium 4.6 mEq/L 3.6-5.5 Chloride 103 mEq/L 94-112 Carbon Dioxide 23 mEq/L 21-32 Glucose 112 mg/dL High 70-105 1 BUN 16 mg/dL 6-26 Creatinine 0.7 mg/dL 0.6-1.4 BUN/Creat Ratio 22.9 CALC 8.0-36.0 Calcium 9.6 mg/dL 8.6-10.2 Total Protein 6.8 g/dL 6.4-8.3 Albumin 4.6 g/dL 3.8-5.5 Globulin 2.2 g/dL 2.0-4.8 A/G Ratio 2.1 CALC 0.6-2.3 Alk. Phosphatase 51 U/L 30-110 Alt (SGPT) 16 U/L 7-35 Ast (Sgot) 15 U/L 5-34 Total Bilirubin 0.5 mg/dL 0.2-1.3 GFR Non- >60 ml/min/1.73m^ >=60 GFR >60 ml/min/1.73m^ >=60 CBC Electronic Fma 10/25/2018 Remigio Osullivan WBC 4.2 x10^3/UL 4.0-10.0 RBC 4.62 x10^6/UL 3.93-6.00 HGB 14.1 g/dL 12.0-17.0 HCT 43 % 35-50 MCV 93.5 fL 80.0-95.0 MCH 30.5 pg 25.6-32.2 MCHC 32.6 g/dL 32.2-36.0 RDW-CV 12.5 % 11.6-14.4 PLT 217 x10^3/UL 163-400 MPV 11.7 fL 9.4-12.4 Roberto# 2.34 x10^3/UL 1.56-6.13 Lymph# 1.14 x10^3/UL Low 1.18-3.74 Randolph# 0.44 x10^3/UL 0.24-0.82 Eos # 0.2 x10^3/UL 0.0-0.5 Baso # 0.05 x10^3/UL 0.01-0.08 Roberto% 55.5 % 34.0-70.0 Lymph % 27.0 % 20.0-52.0 Randolph% 10.4 % 5.0-12.0 Eos% 5.7 % 0.7-7.0 Baso% 1.2 % 0.1-1.2 Laboratory test 09/25/2018 [facility] D Dimer Quantitative < 200 ng/mL N Less Than 230 2 finding CBC Auto Diff 09/24/2018 [facility] White Blood Count 6.6 10^3/uL N 3.5-10.8 Red Blood Count 4.42 10^6/uL N 4.00-5.40 Hemoglobin 13.5 g/dL N 12.0-16.0 Hematocrit 41 % N 35-47 Mean Corpuscular Volume 92 fL N 80-97 Mean Corpuscular Hemoglobin 31 pg N 27-31 Mean Corpuscular HGB Conc 33 g/dL N 31-36 Red Cell Distribution Width 14 % N 10.5-15 Platelet Count 198 10^3/uL N 150-450 Mean Platelet Volume 9.2 fL N 7.4-10.4 Abs Neutrophils 4.5 10^3/uL N 1.5-7.7 Abs Lymphocytes 1.3 10^3/uL N 1.0-4.8 Abs Monocytes 0.6 10^3/uL N 0-0.8 Abs Eosinophils 0.1 10^3/uL N 0-0.6 Abs Basophils 0.1 10^3/uL N 0-0.2 Abs Nucleated RBC 0 10^3/uL Granulocyte % 68.0 % Lymphocyte % 19.5 % Monocyte % 8.9 % Eosinophil % 2.3 % Basophil % 1.3 % Nucleated Red Blood Cells % 0.1 Urinalysis Profile 09/24/2018 [facility] Urine Color Yellow Urine Appearance Clear Urine Specific [place] 1.027 N 1.010-1.030 Urine pH 5.0 N 5-9 Urine Urobilinogen Negative Negative Urine Ketones Trace Abnormal Negative Urine Protein Negative Negative Urine Leukocytes Trace Abnormal Negative Urine Blood Negative Negative * * Abnormal Negative 3 Urine Nitrite Negative Negative Urine Bilirubin Negative Negative Urine Glucose Negative Negative Urine White Blood Cell Trace(0-5/hpf) Absent Urine Red Blood Cell Absent Absent Urine Bacteria Absent Absent Urine Squamous Epithelial Cell Present Abnormal Absent Comp Metabolic Panel 09/24/2018 [facility] Sodium 141 mmol/L N 135-145 Potassium 4.2 mmol/L N 3.5-5.0 Chloride 107 mmol/L N 101-111 Co2 Carbon Dioxide 27 mmol/L N 22-32 Anion Gap 7 mmol/L N 2-11 Glucose 116 mg/dL High 70-100 Blood Urea Nitrogen 26 mg/dL High 6-24 Creatinine 0.97 mg/dL High 0.51-0.95 BUN/Creatinine Ratio 26.8 High 8-20 Calcium 9.4 mg/dL N 8.6-10.3 Total Protein 6.6 g/dL N 6.4-8.9 Albumin 4.2 g/dL N 3.2-5.2 Globulin 2.4 g/dL N 2-4 Albumin/Globulin Ratio 1.8 N 1-3 Total Bilirubin 0.40 mg/dL N 0.2-1.0 Alkaline Phosphatase 52 U/L N 34-104 Alt 17 U/L N 7-52 Ast 17 U/L N 13-39 Egfr Non- 56.9 >60 Egfr 68.9 >60 4 Laboratory test finding 09/24/2018 [facility] Troponin I 0.00 ng/mL <0.04 5 Lactic Acid 0.8 mmol/L N 0.5-2.0 6 Urine Culture And 09/24/2018 [facility] Urine Culture SEE RESULT 7 Sensitivities BELOW Laboratory test 09/24/2018 [facility] Hemoglobin A1c 6.2 % High 4.0-5 8 finding (Glyco HGB) .6 Laboratory test 06/14/2018 [facility] Surgical SEE RESULT 9, 10 finding Pathology BELOW Laboratory test 05/28/2018 [facility] Wet Prep see comment 11 finding (607)- - (Fma,CMC,CX) Ua - Non Micro 05/28/2018 [facility] Appearance clear (a) (607)- - Color yellow Glucose, Urine (Fma/CMC/CTX) neg Bilirubin neg Ketones neg SP Grav 1.015 Blood neg PH 5.0 Protein neg Urobil 0.2 Nitrite neg Leukocytes (a/CMC/Centrex) neg Inr/Protime 02/12/2018 [facility] Inr 0.86 N 0.77-1.02 12 Laboratory test finding 02/12/2018 [facility] Partial Thrombo 28.1 seconds N 26.0-36.3 13 Time PTT Urinalysis Profile 02/12/2018 [facility] Urine Color Yellow Urine Appearance Clear Urine Specific [place] 1.011 N 1.010-1.030 Urine pH 5.0 N 5-9 Urine Urobilinogen Negative Negative Urine Ketones Negative Negative Urine Protein Negative Negative Urine Leukocytes Negative Negative Urine Blood Negative Negative Urine Nitrite Negative Negative Urine Bilirubin Negative Negative Urine Glucose Negative Negative Type & Screen 02/12/2018 [facility] Patient Blood Type O Positive Antibody Screen NEGATIVE Ict-Hemoccult 02/08/2018 [facility] Ict Hemoccult 01/17/18 negative ([facility])Fma Screeni (607)- - (1) Ict Hemoccult-(2) 01/18/18 negative Ict-Hemoccult (3) 01/19/18 negative Ua - Non Micro (a) 01/25/2018 [facility] Appearance clear (607)- - Color yellow Glucose, Urine (a/[facility]/CTX) negative Bilirubin negative Ketones negative SP Grav 1.025 Blood negative PH 5.5 Protein negative Urobil 0.2 Nitrite negative Leukocytes ([facility]/Centrex) negative CBC Electronic [facility] 01/16/2018 [facility] WBC 6.1 x10^3/UL 4.0-10.0 RBC 4.76 x10^6/UL 3.93-6.00 HGB 14.6 g/dL 12.0-17.0 HCT 44 % 35-50 MCV 92.9 fL 80.0-95.0 MCH 30.7 pg 25.6-32.2 MCHC 33.0 g/dL 32.2-36.0 RDW-CV 12.6 % 11.6-14.4 PLT 217 x10^3/UL 163-400 MPV 11.2 fL 9.4-12.4 Roberto# 4.54 x10^3/UL 1.56-6.13 Lymph# 0.87 x10^3/UL Low 1.18-3.74 Randolph# 0.52 x10^3/UL 0.24-0.82 Eos # 0.1 x10^3/UL 0.0-0.5 Baso # 0.06 x10^3/UL 0.01-0.08 Roberto% 74.8 % High 34.0-70.0 Lymph % 14.4 % Low 20.0-52.0 Randolph% 8.6 % 5.0-12.0 Eos% 1.0 % 0.7-7.0 Baso% 1.0 % 0.1-1.2 Laboratory test finding 01/16/2018 [facility] TSH 2.39 mIU/L 0.50- 6.00 Free T4 1.15 ng/dL 0.75-1.54 Lipid Profile 01/16/2018 [facility] Cholesterol 220 mg/dL High 120- 200 Triglycerides 58 mg/dL 30-200 HDL Cholesterol 79 mg/dL 30-85 LDL (Calculated) 129 CALC 0-129 VLDL Cholesterol 12 mg/dL 0-50 HDL Risk Factor 2.8 CALC 0.0-4.4 Comprehensive Metabolic Prof 01/16/2018 [facility] Sodium 138 mEq/L 134-149 Potassium 4.8 mEq/L 3.6-5.5 Chloride 100 mEq/L 94-112 Carbon Dioxide 25 mEq/L 21-32 Glucose 125 mg/dL High 70-105 14 BUN 22 mg/dL 6-26 Creatinine 0.8 mg/dL [...] >60 ml/min/1.73m^ >=60 GFR >60 ml/min/1.73m^ >=60 Ict-Hemoccult (MCR)Fma 04/19/2016 [facility] Medicine Ict Hemoccult (1) neg Screeni (607)- - Ict Hemoccult-(2) 04/10/16 neg Ict-Hemoccult (3) 04/11/16 neg Complete Blood Count 04/01/2016 [facility] WBC 4.1 x10^3/UL 3.6-9.6 RBC 4.55 x10^6/UL 3.90-5.70 HGB 14.2 g/dL 12.1-17.2 HCT 42 % 36-50 MCV 92.0 fL 82.2-97.4 MCH 31.3 pg 27.6-33.3 MCHC 34.0 g/dL 33.0-35.5 RDW 13.7 % 11.6-13.7 PLT 185 x10^3/UL 150-400 MPV 8.6 fL 7.4-10.4 Gran # 3.0 x10^3/UL 1.5-7.2 Lymph# 1.0 x10^3/UL 0.7-4.9 Randolph# 0.1 x10^3/UL 0.1-0.9 Gran % 69.2 % 42.2-75.2 Lymph % 26.4 % 20.5-51.1 Randolph% 4.4 % 1.7-9.3 Comprehensive Metabolic Prof 04/01/2016 [facility] Sodium 139 mEq/L 134-149 Potassium 4.9 mEq/L 3.6-5.5 Chloride 102 mEq/L 94-112 Carbon Dioxide 26 mEq/L 21-32 Glucose 116 mg/dL High 70-105 15 BUN 13 mg/dL 6-26 Creatinine 0.8 mg/dL [...] GFR >60 ml/min/1.73m^ >=60 Lipid Profile 04/01/2016 [facility] Shi Cholesterol 217 mg/dL High 120- 200 Triglycerides 101 mg/dL 30-200 HDL Cholesterol 57 mg/dL 30-85 LDL (Calculated) 140 CALC High 0-129 VLDL Cholesterol 20 mg/dL 0-50 HDL Risk Factor 3.8 CALC 0.0-4.4 Laboratory test finding 04/01/2016 [facility] TSH 3.19 mIU/L 0.50- 6.00 16 Free T4 1.58 ng/dL High 0.75-1.54 17 Vitamin D25 47 30-100 Ua - Non Micro (Fma) 04/01/2016 [facility] Appearance clear (607)- - Color yellow Glucose, Urine (Fma/CMC/CTX) neg Bilirubin neg Ketones neg SP Grav 1.020 Blood neg PH 5.0 Protein neg Urobil 0.2 Nitrite neg Leukocytes (a/[facility]/Centrex) neg Laboratory test finding 11/23/2015 [facility] Free T4 1.13 ng/dL 0.75-1.54 TSH 3.60 mIU/L 0.50-6.00 Lipid Profile 11/23/2015 [facility] Cholesterol 221 mg/dL High 120- 200 Triglycerides 122 mg/dL 30-200 HDL Cholesterol 54 mg/dL 30-85 LDL (Calculated) 143 CALC High 0-129 VLDL Cholesterol 24 mg/dL 0-50 HDL Risk Factor 4.1 CALC 0.0-4.4 Comprehensive Metabolic Prof 11/23/2015 [facility] Sodium 136 mEq/L 134-149 Potassium 4.6 mEq/L 3.6-5.5 Chloride 101 mEq/L 94-112 Carbon Dioxide 26 mEq/L 21-32 Glucose 130 mg/dL High 70-105 18 BUN 21 mg/dL 6-26 Creatinine 0.9 mg/dL [...] >60 ml/min/1.73m^ >=60 Complete Blood Count 11/23/2015 [facility] WBC 7.5 x10^3/UL 3.6-9.6 RBC 4.67 x10^6/UL 3.90-5.70 HGB 14.4 g/dL 12.1-17.2 HCT 43 % 36-50 MCV 92.0 fL 82.2-97.4 MCH 30.9 pg 27.6-33.3 MCHC 33.6 g/dL 33.0-35.5 RDW 14.1 % High 11.6-13.7 PLT 194 x10^3/UL 150-400 MPV 8.9 fL 7.4-10.4 Gran # 6.3 x10^3/UL 1.5-7.2 Lymph# 0.9 x10^3/UL 0.7-4.9 Randolph# 0.3 x10^3/UL 0.1-0.9 Gran % 82.5 % High 42.2-75.2 Lymph % 12.9 % Low 20.5-51.1 Randolph% 4.6 % 1.7-9.3 Laboratory test finding 07/14/2015 [facility] TSH 3.24 mIU/L 0.50- 6.00 Free T4 0.79 ng/dL 0.75-1.54 Comprehensive Metabolic Prof 07/14/2015 [facility] Shi Sodium 140 mEq/L 134-149 Potassium 4.9 mEq/L [...] GFR >60 ml/min/1.73m^ >=60 Lipid Profile 07/14/2015 [facility] Shi Cholesterol 250 mg/dL High 120- 200 Triglycerides 96 mg/dL 30-200 HDL Cholesterol 78 mg/dL 30-85 LDL (Calculated) 153 CALC High 0-129 VLDL Cholesterol 19 mg/dL 0-50 HDL Risk Factor 3.2 CALC 0.0-4.4 CBC Electronic (Fma) 07/14/2015 [facility] WBC 5.6 3.6-9.6 (607)- - RBC 4.38 3.90-5.70 Hemoglobin (Fma/CMC/CTX) 13.1 g/dL 12.1 - 17.2 Hematocrit (Fma/CMC/CTX) 39.6 % 36.1 - 50.3 Platelets 175 10^3/ul 150-400 Lymph% 24.7 % 17.0-48.0 Mixed% 4.3 Neutrophils % 71.0 Mean Corpuscular Vol 90 82.2-97.4 Mean Corpuscular Hemoglobin 29.9 27.6-33.3 Mean Corpuscular Hemo Concen 33.0 32.0-36.0 RDW 14.2 High 11.6-13.7 Mean Platelet Volume 8.3 5.5-11.0 Laboratory test 07/01/2015 [facility] (General) [facility] Test hpv result finding Ict-Hemoccult 10/14/2014 [facility] Ict Hemoccult (1) 10/08/14 NEG (MCR)Fma Screeni (607)- - Ict Hemoccult-(2) 10/09/14 NEG Ict-Hemoccult (3) 10/10/14 NEG Ua - Non Micro (Fma) 10/06/2014 [facility] Appearance clear (607)- - Color yellow Glucose, Urine (Fma/CMC/CTX) - Bilirubin - Ketones - SP Grav 1.015 Blood - PH 5.0 Protein - Urobil 0.2 Nitrite - Leukocytes (Fma/CMC/[facility]) - Complete Blood Count 09/29/2014 Remigio Osullivan WBC 4.3 x10^3/UL 3.6-9.6 RBC 4.57 x10^6/UL 3.90-5.70 HGB 14.2 g/dL 12.1-17.2 HCT 42 % 36-50 MCV 91.0 fL 82.2-97.4 MCH 31.1 pg 27.6-33.3 MCHC 34.1 g/dL 33.0-35.5 RDW 12.4 % 11.6-13.7 PLT 185 x10^3/UL 150-400 MPV 8.8 fL 7.4-10.4 Gran # 2.9 x10^3/UL 1.5-7.2 Lymph# 1.2 x10^3/UL 0.7-4.9 Randolph# 0.2 x10^3/UL 0.1-0.9 Gran % 65.7 % 42.2-75.2 Lymph % 29.2 % 20.5-51.1 Randolph% 5.1 % 1.7-9.3 Comprehensive Metabolic Prof 09/29/2014 Remigio Osullivan Sodium 139 mEq/L 134-149 Potassium 4.8 mEq/L 3.6-5.5 Chloride 105 mEq/L 94-112 Carbon Dioxide 28 mEq/L 21-32 Glucose 127 mg/dL High 70-105 19 BUN 15 mg/dL 6-26 Creatinine 0.9 mg/dL 0.6-1.4 BUN/Creat Ratio 16.7 CALC 8.0-36.0 Calcium 10.0 mg/dL 8.6-10.2 Total Protein 7.1 g/dL 6.4-8.3 Albumin 4.6 g/dL 3.8-5.5 Globulin 2.5 g/dL 2.0-4.8 A/G Ratio 1.8 CALC 0.6-2.3 Alk. Phosphatase 42 U/L 30-110 Alt (SGPT) 32 U/L 7-35 Ast (Sgot) 25 U/L 5-34 Total Bilirubin 0.6 mg/dL 0.2-1.3 Lipid Profile 09/29/2014 Flood Shi Cholesterol 226 mg/dL High 120- 200 Triglycerides 163 mg/dL 30-200 HDL Cholesterol 55 mg/dL 30-85 LDL (Calculated) 138 CALC High 0-129 VLDL Cholesterol 33 mg/dL 0-50 HDL Risk Factor 4.1 CALC 0.0-4.4 Laboratory test finding 09/29/2014 Remigio Osullivan TSH 4.58 mIU/L 0.50- 6.00 20 Surgical Pathology 09/16/2013 [facility] S RUN DATE: <SEE NOTE> Laboratory test finding 09/24/2012 Remigio Osullivan TSH 4.02 mIU/L 0.50- 6.00 22 Free T4 0.97 ng/dL 0.75-1.54 Laboratory test 09/24/2012 [facility] see scanned finding Inc. Comp Metabolic-ALL 08/10/2012 [facility] Medicine Appearance YELLOW Lab Compani (607)- - Color CLEAR Glucose, Urine (Fma/CMC/CTX) NEG Bilirubin NEG Ketones NEG SP Grav 1.020 Blood NEG PH 6.0 Protein NEG Urobil 0.2 Nitrite NEG Leukocytes (Fma/[facility]) NEG Ict Hemoccult (Fma) 07/09/2012 [facility] Medicine Ict Hemoccult (1) neg (607)- - Ict Hemoccult-(2) neg Ict-Hemoccult (3) neg Comprehensive Metabolic Prof 07/03/2012 Remigio Osullivan Albumin 4.5 g/dL 3.8-5.5 Alk. Phos. 46 [...] Ratio 18.0 Calc 8.0-36.0 Lipid Profile 07/03/2012 Remigio Osullivan Cholesterol 220 mg/dL High 120- 200 HDL 52 mg/dL 30-85 Triglycerides 160 mg/dL 30-200 HDL Risk Factor 4.2 CALC 0.0-4.4 LDL (Calculated) 136 CALC High 0-129 VLDL (Calculated) 32 mg/dL 0-50 Laboratory test finding 07/03/2012 Remigio Osullivan TSH 5.97 mIU/L 0.50- 6.00 Free T4 1.01 ng/dL 0.75-1.54 CBC Electronic ([facility]) 07/03/2012 [facility] WBC 4.1 3.6-9.6 (607)- - RBC 4.52 3.90-5.70 Hemoglobin (Fma/CMC/CTX) 14.0 g/dL 12.1 - 17.2 Hematocrit (a/CMC/CTX) 41.3 % 36.1 - 50.3 Platelets 209 10^3/ul 150-400 Lymph% 32.6 20.5-51.1 Mixed% 5.9 Neutrophils % 61.5 Mean Corpuscular Vol 91 82.2-97.4 Mean Corpuscular Hemoglobin 31.0 27.6-33.3 Mean Corpuscular Hemo Concen 34.0 32.0-36.0 RDW 11.7 11.6-13.7 Mean Platelet Volume 8.6 6.5-11.0 Ua - Micro ([facility]) 07/03/2012 [facility] Appearance yellow (607)- - Color clear Glucose neg Bilirubin neg Ketones neg SP Grav 1.025 Blood trace-lysed # PH 5.5 Protein neg Urobil 0.2 Nitrite neg Leukocytes (a/CMC/[facility]) neg Hyaline 2-3 /Lpf # Granular 2-3 /Lpf # WBC (a,[facility]) 9-10 # RBC 0-1 # Mucus lg amt /Lpf # Epith rare /Lpf # Bacteria trace /Hpf # Amorphous - /Lpf Crystals, Fluid (a/CMC/CTX) - Z#Comments - Ua - Micro ([facility]) 10/18/2011 [facility] Appearance cloudy (607)- - Color yellow Glucose neg Bilirubin neg Ketones neg SP Grav 1.020 Blood large # PH 6.5 Protein neg Urobil 0.2 Nitrite positive # Leukocytes (Fma/CMC/[facility]) large # Hyaline - /Lpf Granular - /Lpf WBC (a,[facility]) >100 # RBC 15-20 # Mucus - /Lpf Epith occass /Lpf # Bacteria 4+ /Hpf # Amorphous - /Lpf Crystals, Fluid (Fma/CMC/CTX) - Z#Comments - Laboratory test 10/18/2011 [facility] Urine Culture Escherichia coli 23 finding 28 [place], [place] [id number] [phone] Ua - Non Micro 06/04/2011 [facility] Appearance CLOUDY (Fma) (607)- - Color YELLOW Glucose NEG Bilirubin NEG Ketones TRACE # SP Grav 1.020 Blood MOD # PH 6.5 Protein NEG Urobil 0.2 Nitrite POS # Leukocytes (Fma/CMC/[facility]) LARGE # Laboratory test 06/04/2011 [facility] Urine Culture Escherichia coli 24 finding 28 [place] [address] [phone] Ict Hemoccult 09/15/2010 [facility] Ict Hemoccult neg ([facility]) (607)- - (1) Ict Hemoccult-(2) neg Ict-Hemoccult (3) neg Comprehensive Metabolic Prof 08/28/2010 Remigio Osullivan Albumin 4.4 g/dL 3.8-5.5 Alk. Phos. 44 [...] Ratio 15.7 Calc 8.0-36.0 Lipid Profile 08/28/2010 Remigio Osullivan Cholesterol 206 mg/dL High 120- 200 HDL 43 mg/dL 30-85 Triglycerides 159 mg/dL 30-200 HDL Risk Factor 4.8 CALC 4.2-7.0 LDL (Calculated) 132 CALC High 0-129 VLDL (Calculated) 32 mg/dL 0-50 Laboratory test 08/28/2010 Flood Shi TSH 5.05 mIU/L 0.50-6.00 finding Laboratory test 08/28/2010 [facility] CA 125 5.0 U/mL 0.0-30.1 25, 26 finding 28 [place] [address] [phone] CBC Electronic ([facility]) 08/28/2010 [facility] WBC 3.9 3.6-9.6 (607)- - RBC 4.74 3.90-5.70 Hemoglobin (Fma/CMC/CTX) 14.6 g/dL 12.1 - 17.2 Hematocrit (Fma/CMC/CTX) 43.0 % 36.1 - 50.3 Platelets 216 10^3/ul 150-400 Lymph% 35.0 20.5-51.1 Mixed% 9.8 Neutrophils % 55.2 Mean Corpuscular Vol 90.7 82.2-97.4 Mean Corpuscular Hemoglobin 30.8 27.6-33.3 Mean Corpuscular Hemo Concen 34.0 32.0-36.0 RDW 12.7 11.6-13.7 Mean Platelet Volume 12.2 High 6.5-11.0 Ua - Micro ([facility]) 08/28/2010 [facility] Appearance CLEAR (607)- - Color YELLOW Glucose NEG Bilirubin NEG Ketones NEG SP Grav 1.025 Blood TRACE-INTACT # PH 7.0 Protein TRACE # Urobil 0.2 Nitrite NEG Leukocytes (Fma/CMC/[facility]) NEG Hyaline - /Lpf Granular - /Lpf WBC (Fma,[facility]) 0-1 RBC 1-2 Mucus - /Lpf Epith RARE /Lpf Bacteria TRACE /Hpf Amorphous SLT /Lpf Crystals, Fluid (Fma/CMC/CTX) - Z#Comments - Comp Metabolic Panel 06/25/2010 [facility] Sodium 132 mmol/L Low 135-145 Potassium 3.7 mmol/L 3.5-5.0 Chloride 101 mmol/L 101-111 Co2 (Carbon Dioxide) 24.0 mmol/L 22-32 Anion Gap 7.0 mmol/L 2-11 27 Glucose 122 mg/dL High 70-100 28 BUN 13 mg/dL 6-24 Creatinine 0.85 mg/dL 0.50-1.40 One Over Creatinine 1.10 BUN/Creatinine Ratio 15.3 8-20 Calcium 9.1 mg/dL 8.1-9.9 Total Protein 6.3 GM/DL 6.2-8.1 Albumin 4.0 GM/DL 3.2-5.2 Globulin 2.3 GM/DL 2-4 Albumin/Globulin Ratio 1.7 1-3 Bilirubin Total 0.6 mg/dL 0.4-1.5 29 Alkaline Phosphatase 40 U/L 30-110 Alt (SGPT) 35 U/L 14-54 Ast (Sgot) 27 U/L 12-42 eGFR Non- 72.3 > 60 eGFR 87.4 > 60 30 Laboratory test finding 06/25/2010 [facility] Troponin-I 0 NG/ML 0-0.06 31 CBC With Electronic Diff 06/25/2010 [facility] White Blood Count 5.1 CUMM 4.8- 10.8 Red Cell Count 4.38 CUMM 4.2-5.4 Hemoglobin 13.4 g/dL 12.0-16.0 Hematocrit 39 % 35-47 Mean Corpuscular Volume 89 um3 79-97 Mean Corpuscular Hemoglob 31 pg 27-31 Mean Corpuscular HGB Cone 35 g/dL 32-36 Redcell Distribution WDTH 13 % 10.5-15 Platelet Count 202 CUMM 150-450 Mean Platelet Volume 7.7 um3 7.4-10.4 32 Manual Differential 06/25/2010 [facility] Polysegmented Neutrophil 82 % 38-83 Band Neutrophil 1 % 0-8 Lymphocyte 11 % Low 25-47 Monocyte 3 % 0-13 Eosinophil 1 % 0-6 Atypical Lymph 2 % 0-6 Absolute Neutrophil Count 4.2 Anisocytosis SLIGHT Laboratory test finding 06/25/2010 [facility] Magnesium 2.1 mg/dL 1.7-2.6 TSH 4.11 MIU/ML 0.34-5.60 Ict Hemoccult (Fma) 09/03/2009 [facility] Medicine Ict Hemoccult (1) 08/29/09 NEG (607)- - Ict Hemoccult-(2) 08/30/09 NEG Ict-Hemoccult (3) 08/31/09 NEG Laboratory test finding 08/03/2009 Flood Shi TSH 4.10 mIU/L 0.50- 6.00 Free T4 0.95 ng/dL 0.75-1.54 Lipid Profile 08/03/2009 Remigio Osullivan Cholesterol 196 mg/dL 120-200 HDL 53 mg/dL 30-85 Triglycerides 126 mg/dL 30-200 HDL Risk Factor 3.7 CALC Low 4.2-7.0 LDL (Calculated) 118 CALC 0-129 VLDL (Calculated) 25 mg/dL 0-50 Comprehensive Metabolic Prof 08/03/2009 Remigio Osullivan Albumin 4.4 g/dL 3.8-5.5 Alk. Phos. 45 [...] 20.9 Calc 8.0-36.0 Complete Blood Count 08/03/2009 Remigio Osullivan WBC 4.1 x10^3/uL 3.6-9.6 Gran# 2.7 x10^3/uL [...] 12.9 % 11.6-13.7 Ua - Non Micro (a) 08/03/2009 [facility] Appearance CLEAR (607)- - Color YELLOW Glucose - Bilirubin - Ketones - SP Grav 1.025 Blood - PH 5.5 Protein - Urobil 0.2 Nitrite - Leukocytes (Fma/[facility]) - Laboratory test finding 07/26/2008 Remigio Shi TSH 4.97 mIU/L 0.50- 6.00 33 Free T4 0.96 ng/dL 0.75-1.54 Laboratory test 07/26/2008 [facility] CA 125 9.5 U/mL 0.0-30.1 34, 35 finding 28 [place] [id number] [phone] Ict Hemoccult 06/15/2008 [facility] Ict Hemoccult NEG ([facility]) (607)- - (1) Ict Hemoccult-(2) NEG Ict-Hemoccult (3) NEG Ua - Non Micro ([facility]) 05/27/2008 [facility] Appearance CLEAR (607)- - Color YELLOW Glucose - Bilirubin - Ketones - SP Grav 1.015 Blood - PH 7.0 Protein - Urobil 0.2EU/DL Nitrite - Leukocytes (a/CMC/[facility]) - CBC ([facility]) 05/24/2008 [facility] WBC 4.4 3.6-9.6 (607)- - RBC 4.47 3.90-5.70 Hemoglobin (Fma/CMC/CTX) 13.8 g/dL 12.1 - 17.2 Hematocrit (a/CMC/CTX) 40.2 % 36.1 - 50.3 Mean Corpuscular Vol 89.9 82.2-97.4 Mean Corpuscular Hemaglobin 30.9 27.6-33.3 Mean Corpuscular Hemo Concen 34.3 33.0-36.0 Platelets 207 10^3/ul 150-400 Lymph% 30.3 20.5-51.1 Mixed% 9.3 Neutrophils % 60.4 RDW 12.9 11.6-13.7 Mean Platelet Volume 11.9 High 7.4-10.4 Comprehensive Metabolic Prof 05/24/2008 Remigio Osullivan Albumin 4.2 g/dL 3.8-5.5 36 Alk. Phos. 43 U/L 30-110 Alt (SGPT) 15 U/L 7-35 Ast (Sgot) 17 U/L 5-34 BUN 18 mg/dL 6-26 Calcium 9.3 mg/dL 8.6-10.2 Chloride 105 mEq/L 94-112 Creatinine 1.0 mg/dL 0.6-1.4 Carbon Dioxide 28 mEq/L 21-32 Glucose 101 mg/dL 70-105 Sodium 143 mEq/L 134-149 Total Bilirubin 0.3 mg/dL 0.2-1.3 Total Protein 6.9 g/dL 6.3-8.1 Potassium 5.1 mEq/L 3.6-5.5 Globulin 2.7 g/dL 2.0-4.8 A/G Ratio 1.6 Calc 0.6-2.2 BUN/Creat Ratio 18.0 Calc 8.0-36.0 Lipid Profile 05/24/2008 Remigio Osullivan Cholesterol 209 mg/dL High 120- 200 HDL 56 mg/dL 30-85 Triglycerides 98 mg/dL 30-200 HDL Risk Factor 3.8 CALC Low 4.2-7.0 LDL (Calculated) 134 CALC High 0-129 VLDL (Calculated) 20 mg/dL 0-50 Laboratory test finding 05/24/2008 Remigio Osullivan TSH 5.45 mIU/L 0.50- 6.00 Free T4 0.97 ng/dL 0.75-1.54 Laboratory test finding 10/20/2007 [facility] TSH 4.14 MIU/ML 0.34-5.60 Comp Metabolic Panel 10/20/2007 [facility] One Over Creatinine 1.00 Anion Gap 2.0 mmol/L 2-11 37 Albumin/Globulin Ratio 1.7 1-3 Albumin 4.0 GM/DL [...] Ratio 16.0 8-20 Creatinine 1.0 mg/dL 0.5-1.4 Basic Metabolic Panel 07/27/2007 [facility] One Over Creatinine 1.25 38 Anion Gap 6.0 mmol/L 2-11 39 BUN 20 mg/dL 6-24 Calcium 10.6 mg/dL High 8.7-10.2 Chloride 107 mmol/L 101-111 Co2 (Carbon Dioxide) 33.0 mmol/L High 22-32 Glucose 107 mg/dL High 70-105 Potassium 4.6 mmol/L 3.5-5.0 Sodium 146 mmol/L High 135-145 BUN/Creatinine Ratio 25.0 High 8-20 Creatinine 0.8 mg/dL 0.5-1.4 CBC With Electronic Diff 07/27/2007 [facility] White Blood Count 4.8 CUMM 4.8- 10.8 Abs Basophils 0 0-0.2 Abs Eosinophils 0.1 0-0.6 Absolute Neutrophil Count 2.8 1.5-7.7 Abs Lymphs 1.4 1.0-4.8 Abs Mononuclear 0.5 0-0.8 Basophil % 0.3 % 0-2 Hematocrit 40 % 35-47 Hemoglobin 13.9 g/dL 12.0-16.0 Eosinophil % 1.8 % 0-6 Gran % 58.9 % 38-83 Lymph % 28.7 % 20-45 Mean Corpuscular HGB Cone 35 g/dL 32-36 Mean Corpuscular Hemoglob 31 pg 27-31 Mean Corpuscular Volume 89 um3 79-97 Mean Platelet Volume 9.3 um3 7.4-10.4 Mononuclear % 10.3 % High 1-9 Platelet Count 241 CUMM 150-450 Red Cell Count 4.54 CUMM 4.2-5.4 Redcell Distribution WDTH 13 % 10.5-15 Laboratory test finding 07/27/2007 [facility] PTT (Aptt) 24.4 20.4-29.5 40 Protime 07/27/2007 [facility] Inr 0.86 41 Protime 11.2 10.9-13.3 Ict Hemoccult (Fma) 05/31/2007 [facility] Ict Hemoccult (1) NEG (607)- - Ict Hemoccult-(2) NEG 04/28/07 Ict-Hemoccult (3) NEG 04/29/07 Comprehensive Metabolic Prof 04/23/2007 Remigio Osullivan Albumin 4.1 g/dL 3.8-5.5 Alk. Phos. 51 [...] Calc 0.6-2.2 BUN/Creat Ratio 21.7 Calc 8.0-36.0 Laboratory test finding 04/23/2007 Remigio Osullivan TSH 1.44 mIU/L 0.50- 6.00 Complete Blood Count 04/23/2007 Remigio Osullivan WBC 5.9 x10\\S\\3/uL 3.6- 9.6 Gran# 4.3 x10\\S\\3/uL 1.5-7.2 Gran% 72.7 % 42.2-75.2 HCT 40 % 36-50 HGB 13.4 g/dL 12.1-17.2 Lymph# 1.2 x10\\S\\3/uL 0.7-4.9 Lymph% 21.0 % 20.5-51.1 MCH 30.9 pg 27.6-33.3 MCV 92.9 fL 82.2-97.4 MCHC 33.3 g/dL 33.0-35.5 Mo# 0.4 x10\\S\\3/uL 0.1-0.9 Mo% 6.3 % 1.7-9.3 MPV 9.0 fL 7.4-10.4 PLT 195 x10\\S\\3/uL 150-400 RBC 4.32 x10\\S\\6/uL 3.90-5.70 RDW 12.5 % 11.6-13.7 Laboratory test 04/23/2007 Remigio Shi Free T4 1.22 ng/dL 0.75-1.54 finding Ua - Non Micro (Fma) 04/23/2007 [facility] Appearance CLEAR (607)- - Color YELLOW Glucose, Urine (Fma/CMC/CTX) NEG Bilirubin NEG Ketones NEG SP Grav >=1.030 Blood NEG PH 5.0 Protein NEG Urobil 0.2 Nitrite NEG Leukocytes (Fma/CMC/[facility]) NEG Lipid Profile 04/23/2007 Remigio Shi Cholesterol 192 mg/dL 120-200 HDL 53 mg/dL 30-85 Triglycerides 146 mg/dL 30-200 HDL Risk Factor 3.6 CALC Low 4.2-7.0 LDL (Calculated) 110 CALC 0-129 VLDL (Calculated) 29 mg/dL 0-50 1 consistent w/ previous results 2 Please note: The following may produce a false positive D Dimer test: - Rheumatoid factor greater than 60 IU/ml - Plasma hemoglobin greater than 0.05 gm/dl - Bilirubin greater than 50 mg/dl - Lipids greater than 1000 mg/dl - FDP greater than 20 ug/ml 3 *Ascorbic acid is present which may interfere with detection of blood. 4 Because ethnic data is not always readily [...] 15-29 5 Kidney failure <15 (or dialysis) 5 Troponin-I testing on Plasma Separator Tubes (PST) has a known false positive rate of 0.20-0.40%. All positive troponins reflex immediate secondary confirmatory testing. 6 [facility] Severe Sepsis and Septic Shock Management Bundle Measure requires all lactic acids initially measuring >2.0 mmol/L be repeated. 7 SEE RESULT BELOW Name: LOVEMEETA D : [address]: Abiola Bains MD Acct: [id number] Unit: [id number] AGE: 68 Location: [place] [address] Re09/25/18 SEX: F Status: ADM Brooke SPEC: [id number] LORNA: 09/24/[address] [facility] [address]: Dennis Berg MD REQ: [id number] RECD: 09/24/18 STATUS: EASTON HOUSER DR: [facility] Lawson Mckeon MD _ SOURCE: URINE SPDESC: ORDERED: Urine Culture Procedure Result Reported Site Urine Culture Final 09/25/18- 1615 ML No Growth (<1,000 CFU/mL) * ML - Main Lab . END OF REPORT DEPARTMENT OF PATHOLOGY, [address] [place] [address] John Cline M.D. Director [facility] # [id number] Therapeutic target for the treatment of diabetes mellitus patients is <7% HBA1C, and in selective patients <6.0%. Please refer to [place] [employer] diabetic care guidelines for further information. 9 3-A:Morphology: Pedunculated skin colored papule ;DDX: Acrochordon; Location: right upper abdom 10 SEE RESULT BELOW Name: MEETA ALEMAN : [address]: Angela Coulter MD Acct: [id number] Unit: [id number] AGE: 68 Location: [facility] Re06/14/18 SEX: F Status: REG REF SPEC: [id number] LORNA: 06/14/[address] [facility] [address]: Angela Coulter MD REQ: [id number] RECD: 06/14/18 STATUS: ADAM HOUSER DR: Lawson Mckeon MD _ ORDERED: LEVEL 4 COMMENTS: [id number] FINAL DIAGNOSIS Skin, right upper abdomen, biopsy: -- Neurofibroma. -- Lesional cells extend to the biopsy base. PRE-OPERATIVE DIAGNOSIS Pedunculated skin-colored papule; acrochordon GROSS DESCRIPTION The specimen is received in formalin labeled, Right Upper Abdomen, and consists of a 2.3 x 1.4 x 0.5 cm crawford-pink wrinkled polypoid skin fragment which is inked, trisected and submitted entirely in one cassette. Signed by and Reported on: Maria Esther Harrell MD 06/15/18 0941 END OF REPORT DEPARTMENT OF PATHOLOGY, [address] [place] [address] John Cline M.D. Director [place] # [id number] 11 ++ epis , some wbc's , no clue cells, no trich , loree++ hyphae 12 AA 02/22 13 AA 02/22 14 consistent w/ previous results 15 consistent w/ previous results 16 FASTING 17 RESULTS VERIFIED BY REPEAT ANALYSIS 18 consistent w/ previous results 19 RESULTS VERIFIED BY REPEAT ANALYSIS 20 FASTING 21 RUN DATE: 09/17/13 [facility] LAB LIVE PAGE 1 RUN TIME: [address] [place] [id number] Specimen Inquiry Name: MEETA ALEMAN : [address]: Guilherme Chapman MD Acct: [id number] Unit: [id number] AGE: 63 Location: ENDO Re09/16/13 SEX: F Status: REG REF SPEC: [id number] LORNA: 09/16/13- SUBM DR: Guilherme Chapman MD REQ: [id number] RECD: 09/16/13 STATUS: ADAM HOUSER DR: Lawson [...] specimen is received in formalin labeled Meeta Moreno Theodorenguyễn, Cecal Polyps (2) and consists of two, crawford, polypoid, soft tissue fragments measuring 0.5 x 0.3 x 0.2 cm. and 0.6 x 0.3 x 0.3 cm. Submitted entirely, one cassette. 2. The specimen is received in formalin labeled Meeta Tiffanie Aleman, Biopsy Right Colon Polyp and consists of a 0.6 x 0.4 x 0.2 cm. aggregate of multiple, crawford-pink, irregular, soft tissue fragments. Submitted entirely, one cassette. CONTINUED ON NEXT PAGE * ML=Testing performed at Main Lab DEPARTMENT OF PATHOLOGY, [facility] [place] [address] John Cline M.D. Director [facility] Permit #[id number] RUN DATE: 09/17/13 [facility] LAB LIVE PAGE 2 RUN TIME: 153 [facility] [place], [place] [address] Specimen Inquiry Patient: MEETA ALEMAN [id number] (Continued) GROSS DESCRIPTION (Continued) Signed (signature on file) John Cline MD 1538 END OF REPORT * ML=Testing performed at Main Lab DEPARTMENT OF PATHOLOGY, [address] [place] [address] John Cline M.D. Director [facility] Permit #[id number] FASTING 23 Escherichia coli >100,000 col/ml URINE CULTURE organism 1 Escherichia coli >100,000 col/ml Meropenem <=0.25 Susceptible Ertapenem <=0.5 Susceptible Amikacin <=2 Susceptible Amoxicillin/CA <=2 Susceptible Ampicillin 4 Susceptible Aztreonam <=1 Susceptible Cefazolin <=4 Susceptible Ciprofloxacin <=0.25 Susceptible Gentamicin <=1 Susceptible Imipenem <=1 Susceptible Levofloxacin <=0.12 Susceptible Nitrofurantoin 64 Intermediate Tetracycline <=1 Susceptible Trimethoprim/Sulfa <=20 Susceptible 24 Escherichia coli >100,000 col/ml URINE CULTURE organism 1 Escherichia coli >100,000 col/ml Meropenem <=0.25 Susceptible Ertapenem <=0.5 Susceptible Amikacin <=2 Susceptible Amoxicillin/CA 8 Susceptible Ampicillin >=32 Resistant Aztreonam <=1 Susceptible Cefazolin <=4 Susceptible Ciprofloxacin <=0.25 Susceptible Gentamicin <=1 Susceptible Imipenem <=1 Susceptible Levofloxacin <=0.12 Susceptible Nitrofurantoin 32 Susceptible Tetracycline >=16 Resistant Trimethoprim/Sulfa <=20 Susceptible 25 FASTING; 1 POURED OFF SERUM FROZEN 26 . Serum levels of this cancer antigen should not be interpreted as absolute evidence of the presence or absence of disease. This result value should be used in conjunction with information obtained from clinical diagnostic procedures. This assay should not be used as a cancer screening test. . Values with different assay methods or kits cannot be used interchangeably. Results obtained using [employer] ICMA methodology. . 27 Anion gap measurement may be of limited value in the presence of any alkalosis, especially in a combined acid base disorder. . 28 Note change in reference range as of 03/06/08. The change was based on recommendations from the [place] [employer]. 29 A metabolite of Naproxen, O-desmethylnaproxen, has been shown to interfere with the [place] method for measuring total bilirubin. Samples from patients who have taken Naproxen have shown spurious elevation in total bilirubin levels. 30 Because ethnic data is not always readily [...] 15-29 5 Kidney failure <15 (or dialysis) 31 New Reference Range and Interpretation effective 04/19/2002 TnI (ng/ml) INTERPRETATION Less Than 0.06 ng/mL NOT SUPPORTIVE OF DIAGNOSIS OF [place] 0.06 - 0.50 ng/ml INDETERMINATE: SUGGEST SERIAL STUDIES IF CLINICALLY INDICATED. Greater than 0.5 ng/mL CONSISTENT WITH DIAGNOSIS OF [place] . 32 NR 33 FASTING 34 FASTING; 1 35 . Serum levels of this cancer antigen should not be interpreted as absolute evidence of the presence or absence of disease. This result value should be used in conjunction with information obtained from clinical diagnostic procedures. This assay should not be used as a cancer screening test. . Values with different assay methods or kits cannot be used interchangeably. Results obtained using [employer] ICMA methodology. . 36 FASTING 37 Anion gap measurement may be of limited value in the presence of any alkalosis, especially in a combined acid base disorder. . 38 SDS 08/06/07 39 Anion gap measurement may be of limited value in the presence of any alkalosis, especially in a combined acid base disorder. . 40 PLEASE NOTE NEW REFERENCE RANGE EFFECTIVE 05 41 BOBO VALUE=2.01 ( OF 06/22/07 Recommended INR for Patients on Oral Anticoagulants Prophylaxis 2.0 - 3.0 Treatment of thrombosis 2.0 - 3.0 Prevention of embolism 2.0 - 3.0 Prevention of embolism from prosthetic heart valves 2.5 - 3.5 Procedures Date Code Description Status 01/25/2018 47591 Electrocardiogram Complete Completed 01/23/2018 [id number] Mammogram Completed 11/09/2016 [id number] Mammogram Completed 12/01/2015 81343 Electrocardiogram Complete Completed 10/01/2015 [id number] Mammogram Completed 09/15/2015 [id number] Bone Mineral Density Test Completed 04/09/2015 [id number] Mammogram Completed 10/09/2014 [id number] Mammogram Completed 10/06/2014 59356 Electrocardiogram Complete Completed 09/16/2013 [id number] Colonoscopy Completed 08/30/2012 [id number] Mammogram Completed 08/10/2012 46285 Electrocardiogram Complete Completed 09/10/2010 65197 Electrocardiogram Complete Completed 08/03/2009 29408 Electrocardiogram Complete Completed 08/04/2008 [id number] Colonoscopy Completed 06/27/2008 [id number] Mammogram Completed 05/27/2008 97409 Electrocardiogram Complete Completed 05/28/2007 [id number] Mammogram Completed 04/23/2007 13958 Electrocardiogram Complete Completed Encounters Type Date Location Provider Dx Diagnosis Office Visit 10/01/2018 [facility] Office Lawson Mckeon, G45.4 Transient global 11:00a M.Tiffanie amnesia I80.11 Phlebitis and thrombophlebitis of right femoral vein E03.9 Hypothyroidism, unspecified G47.33 Obstructive sleep apnea (adult) (pediatric) Office Visit 05/28/2018 10:15a [facility] [place] B37.3 Candidiasis of [place], Afnp-C vulva and vagina K64.8 Other hemorrhoids Office Visit 03/16/2018 10:15a Main Office Brittnee Willingham, 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 unspecified E78.2 Mixed hyperlipidemia H34.9 Unspecified retinal vascular occlusion Office Visit 02/23/2015 3:40p [facility] Office Lawson Blackmon V13.22 Personal HX Of Lucia Mckeon Cervical Dysplasia 372.00 Conjunctivitis Acute Unspec 719.45 Pain Joint Pelvic Region & Thigh Office Visit 08/17/2013 11:00a Main Office Maria Esther 372.00 Conjunctivitis Acute Aura, SUPERINTENDENT TRACK Unspec 461.8 Sinusitis Acute Other Office Visit 08/10/2012 [facility] Lawson Blackmon 244.9 Hypothyroidism Other 8:00a Office Lucia Mckeon Unspec 272.4 Hyperlipidemia Other Unspec V13.22 Personal HX Of Cervical Dysplasia 719.41 Pain Joint Shoulder Region 719.46 Pain Joint Lower Leg V70.0 Examination General Medical Routine AT Health Care Facility 250.00 Diabetes Mellitus W/O Compl Type II Or Unspec Controlled Office Visit 10/18/2011 4:20p Main Office Radha Bond 599.0 UTI Urinary Tract Lucia Grover Infection Site Not Spec Office Visit 06/25/2011 1:40p Main Office Terry Adhikari 787.91 Diarrhea Lucia Velázquez Office Visit 06/04/2011 1:45p Main Office Yamileth TrejoCory Artie, 599.0 UTI Urinary Tract M.D. Infection Site Not Spec Office Visit 02/24/2011 10:50a Main Office Lawson Mckeon, 719.46 Pain Joint Lower M.D. Leg 785.1 Palpitations 244.9 Hypothyroidism Other Unspec Office Visit 09/10/2010 [facility] Lawson Blackmon 715.90 Osteoarthrosis 8:00a Office Lucia Mckeon Unspec Genlzd Or Localzd Site Unspec 272.4 Hyperlipidemia Other Unspec V13.22 Personal HX Of Cervical Dysplasia 244.9 Hypothyroidism Other Unspec V12.72 History Personal Colonic Polyps 709.9 Skin & Subcutaneous Tissue Disorders Unspec 785.1 Palpitations Office Visit 07/28/2010 2:30p [facility] Brittnee Willingham, 709.9 Skin & Subcutaneous Office SUPERINTENDENT TRACK Tissue Disorders Unspec Office Visit 08/03/2009 8:00a [facility] Lawson Blackmon 244.9 Hypothyroidism Other Office Lucia Mckeon Unspec V13.22 Personal HX Of Cervical Dysplasia V12.72 History Personal Colonic Polyps 715.90 Osteoarthrosis Unspec Genlzd Or Localzd Site Unspec 709.9 Skin & Subcutaneous Tissue Disorders Unspec 272.4 Hyperlipidemia Other Unspec V70.0 Examination General Medical Routine AT Health Care Facility V76.41 Screening Malignant Neoplasm Rectum 782.0 Skin Sensation Disturbance Office Visit 12/16/2008 6:20p Main Office Lawson Mckeon, V06.5 Tetanus Diphtheria MCoryDCory (DT) E906.4 Bite Nonvenomous Arthropod 913.4 Injury Superficial Insect Bite Elbow Forearm Wrist W/O Infec Office Visit 05/27/2008 1:00p Main Office Lawson Mckeon, 246.9 Thyroid Disorders M.D. Unspec 715.90 Osteoarthrosis Unspec Genlzd Or Localzd Site Unspec V76.41 Screening Malignant Neoplasm Rectum V12.72 History Personal Colonic Polyps V13.22 Personal HX Of Cervical Dysplasia V70.0 Examination General Medical Routine AT Health Care Facility 272.4 Hyperlipidemia Other Unspec 709.9 Skin & Subcutaneous Tissue Disorders Unspec Office Visit 04/23/2007 [facility] Lawson Blackmon 272.4 Hyperlipidemia Other 1:20p Office Lucia Mckeon Unspec 715.90 Osteoarthrosis Unspec Genlzd Or Localzd Site Unspec V13.22 Personal HX Of Cervical Dysplasia 246.9 Thyroid Disorders Unspec V70.0 Examination General Medical Routine AT Health Care Facility V76.41 Screening Malignant Neoplasm Rectum V12.72 History Personal Colonic Polyps Office Visit 10/24/2006 2:30p Main Office Christy Gallardo, 715.90 Osteoarthrosis Unspec Afnp-C Genlzd Or Localzd Site Unspec Plan of Treatment Future Appointment(s):01/11/2019 3:00 pm - Lawson Mckeon M.D. at [facility] Tnftuw2111/01/2018 - Lawson Mckeon M.D.E03.9 Hypothyroidism, unspecifiedComments:Currently doing well on her present dose of levothyroxineFollow up:Followup:. (Follow up)I80.11 Phlebitis and thrombophlebitis of right femoral veinComments:to continue Eliquis until 2018G45.4 Transient global amnesiaComments:no recurrence, and Dr Emerson's office said no need for follow upAllComments:Medication Management Patient Understands medications she's taking? Yes No Are there Barriers to Adherence? Yes No Has the patient been asked about herbal supplements and therapies, and OTC meds? Yes No
--- NOTE | 2018-11-19 10:20 | ED ---
Lower Extremity - HPI Summary HPI Summary: Patient is a 68 y/o F presenting to ED with complaints of pain behind left knee since this morning. She denies any mechanical injury, reports pain onset spontaneously. Pain is described as recurrent and moderate. She states that she called her PCP's office this morning, was advised to come to ED. PMHx of right leg DVT this past September,, patient is currently on Eliquis 5 mg BID. She also states that she had recently gone on an airplane flight to [place]. She also reports having experienced a left-sided leg cramp four days ago and states that she has started wearing compression socks recently. PMHx of hypothyroidism , sleep apnea, arthritis, DVT in right leg. PSHx of tonsillectomy, section, hemithyroidectomy, left hip replacement. No FMHx of diabetes. She reports weekly alcohol usage, no substance usage or smoking cigarettes. PMHx of arthritis in both knees, reported to be worse in left, she states that her orthopedic doctor recommends possible future knee replacement. Nothing is noted to aggravate/alleviate Sx. Home medications and allergies are reviewed. - History of Current Complaint Chief Complaint: EDExtremityLower Stated Complaint: PAIN BEHIND LT KNEE PER PT Time Seen by Provider: 11/19/18 10:10 Hx Obtained From: Patient Mechanism Of Injury: Other - no RAFIA reported Onset of Pain: Hours - onset this morning, Days - left leg cramp four days ago, Prior to Arrival Onset/Duration: Days - left leg cramp four days ago, current Sx onset this morning Severity Initially: Moderate Severity Currently: Moderate Pain Intensity: 0 Pain Scale Used: 0-10 Numeric Timing: Constant Location: Is Discrete @ - behind left knee Associated Signs And Symptoms: Positive: Other - pain behind left knee, Aggravating Factor(s): Nothing Alleviating Factor(s): Nothing - Allergies/Home Medications Allergies/Adverse Reactions: Allergies Allergy/AdvReac Type Severity Reaction Status Date / Time Fish Containing Products Allergy Severe throat Verified 02/22/18 08:48 feels itchy Tetracyclines Allergy Severe Nausea Verified 02/22/18 08:48 PMH/Surg Hx/FS Hx/Imm Hx Endocrine/Hematology History: Reports: Hx Thyroid Disease - nodule- hemithyroidectomy Denies: Hx Diabetes Cardiovascular History: Denies: Hx Hypertension, Hx Pacemaker/ICD Respiratory History: Reports: Hx Sleep Apnea Denies: Hx Chronic Obstructive Pulmonary Disease (COPD) History: Denies: Hx Dialysis Musculoskeletal History: Reports: Hx Arthritis - knees and hips, Other Musculoskeletal History - right foot plantar fasciatis Denies: Hx Rheumatoid Arthritis, Hx Osteoporosis Sensory History: Reports: Hx Cataracts - early stages both eyes, Hx Contacts or Glasses - glasses Denies: Hx Hearing Aid Opthamlomology History: Reports: Hx Cataracts - early stages both eyes, Hx Contacts or Glasses - glasses Neurological History: Denies: Hx Dementia, Hx Seizures Psychiatric History: Denies: Hx Panic Disorder - Cancer History Hx Chemotherapy: No Hx Radiation Therapy: No - Surgical History Surgery Procedure, Year, and Place: tonsillectomy [address] [place]. 1983 [facility] [place]. hemithyroidectomy 2007 [facility] [place]. left hip replacement 2014 [facility] Hx Anesthesia Reactions: No - Immunization History Date of Tetanus Vaccine: utd Date of Influenza Vaccine: fall 2017 Infectious Disease History: No Infectious Disease History: Denies: Traveled Outside the [place] in Last 30 Days - Family History Known Family History: Negative: Diabetes - Social History Alcohol Use: Weekly Substance Use Type: Reports: None Smoking Status (MU): Never Smoked Tobacco Review of Systems Negative: Fever - on vitals, temp is 98.4 F Musculoskeletal: Other - POSITIVE - PAIN BEHIND LEFT KNEE, LEFT LEG CRAMP FOUR DAYS AGO All Other Systems Reviewed And Are Negative: Yes Physical Exam - Summary Physical Exam Summary: VITAL SIGNS: Reviewed. GENERAL: Patient is a well-developed and nourished female who is lying comfortable in the stretcher. Patient is not in any acute respiratory distress. HEAD AND FACE: No signs of trauma. No ecchymosis, hematomas or skull depressions. No sinus tenderness. EYES: PERRLA, EOMI x 2, No injected conjunctiva, no nystagmus. EARS: Hearing grossly intact. Ear canals and tympanic membranes are within normal limits. MOUTH: Oropharynx within normal limits. NECK: Supple, trachea is midline, no adenopathy, no JVD, no carotid bruit, no c- spine tenderness, neck with full ROM. CHEST: Symmetric, no tenderness at palpation LUNGS: Clear to auscultation bilaterally. No wheezing or crackles. CVS: Regular rate and rhythm, S1 and S2 present, no murmurs or gallops appreciated. ABDOMEN: Soft, non-tender. No signs of distention. No rebound no guarding, and no masses palpated. Bowel sounds are normal. EXTREMITIES: FROM in all major joints, no edema, no cyanosis or clubbing. Some pain with lateral extension of left leg NEURO: Alert and oriented x 3. No acute neurological deficits. Speech is normal and follows commands. SKIN: Dry and warm Triage Information Reviewed: Yes Vital Signs On Initial Exam: Initial Vitals Temp Pulse Resp BP Pulse Ox 98.4 F 79 16 121/69 97 11/19/18 09:36 11/19/18 09:36 11/19/18 09:36 11/19/18 09:36 11/19/18 09:36 Vital Signs Reviewed: Yes Diagnostics - Vital Signs Vital Signs Temp Pulse Resp BP Pulse Ox 11/19/18 09:36 98.4 F 79 16 121/69 97 - Laboratory Lab Statement: Any lab studies that have been ordered have been reviewed, and results considered in the medical decision making process. - Ultrasound No standard instances Ultrasound Interpretation Completed By: Radiologist Summary of Ultrasound Findings: LEFT LOWER EXTREMITY IMPRESSION: NO EVIDENCE OF DEEP VENOUS THROMBOSIS IS IDENTIFIED IN THE LEFT LOWER. EXTREMITY. SEQUELA OF PRIOR THROMBOSIS OF THE RIGHT COMMON FEMORAL VEIN. THIS REPORT WAS REVIEWED BY DR. BARRIENTOS. Re-Evaluation - Re-Evaluation First Eval Re-Evaluation Time: 11:45 Change: Improved Comment: the patient is more comfortable going home with follow-up with the primary care physician. I believe that the patients symptoms are secondary to her chronic obstructive arthritis. Patient will take some Tylenol for pain and follow-up with PCP. Lower Extremity Course/Dx - Course Assessment/Plan: This patient is a 68-year-old female who has past medical history significant for transient global amnesia, DVT, dyslipidemia, hypothyroidism, obstructive sleep apnea and total right hip arthroplasty. She presents to the emergency department with chief complaint of left calf pain. The patient has history of DVT for which the patient is taking Eliquis. The patient called the primary care physician office and she was directed to the emergency department to rule out a DVT in the left side even though the patient is taking Eliquis. I had a long discussion with the patient about DVT and taking Eliquis which the treatment for DVT however the the patient was told by the primary care physicians office that she needs an ultrasound of the left lower extremity because sometimes Eliquis is not effective against DVTs. Patient reports that she had a long flight this weekend and she wants to make sure she doesnt have another DVT. Left lower leg ultrasound impression: No evidence for DVT is identified. Therefore, the patient is more comfortable going home with follow-up with the primary care physician. I believe that the patients symptoms are secondary to her chronic obstructive arthritis. Patient will take some Tylenol for pain and follow-up with PCP. - Diagnoses Provider Diagnoses: Calf pain Discharge - Sign-Out/Discharge Documenting (check all that apply): Patient Departure - discharge Patient Received Moderate/Deep Sedation with Procedure: No - Discharge Plan Condition: Stable Disposition: HOME Patient Education Materials: Leg Pain (ED) Referrals: Lawson Mckeon MD [Primary Care Provider] - 3 Days Additional Instructions: RETURN TO ED FOR ANY NEW OR WORSENING SYMPTOMS. FOLLOW UP WITH YOUR PRIMARY CARE PHYSICIAN WITHIN THREE DAYS. - Billing Disposition and Condition Condition: STABLE Disposition: Home - Attestation Statements Document Initiated by Garciae: Yes Documenting Scribe: ELIJAH BAY Provider For Whom Ivis is Documenting (Include Credential): MYRTLE BARRIENTOS MD Scribe Attestation: IELIJAH, scribed for MYRTLE BARRIENTOS MD on 11/20/18 at 1046. Scribe Documentation Reviewed: Yes Provider Attestation: The documentation as recorded by the ELIJAH pak accurately reflects the service I personally performed and the decisions made by me, MYRTLE BARRIENTOS MD Status of Scribe Document: Viewed
[2018-11-19 11:57] VITALS: BP 124/70
== END 2018-11-19 11:49 | disposition home or self-care (01) ==
LOC: ED 09:33
DX: M79.18 Myalgia, other site (principal); E03.9 Hypothyroidism, unspecified; E89.0 Postprocedural hypothyroidism; M13.862 Other specified arthritis, left knee; M13.861 Other specified arthritis, right knee; M13.852 Other specified arthritis, left hip; M13.851 Other specified arthritis, right hip; Z79.01 Long term (current) use of anticoagulants; Z86.718 Personal history of other venous thrombosis and embolism; Z96.642 Presence of left artificial hip joint
CPT/HCPCS: 99282

== ENCOUNTER 2019-03-19 06:58 | Day surgery (SDC) | payer MEDICARE, BC ==
[~2019-03-19 06:58] MED LIST changes: -Buffered Lidocaine 0.9% SYRIN* 5 ML/SYR SYRINGE INTRADERM ONE; +Buffered Lidocaine 1% SYRIN* 1 ML/SYRINGE INTRADERM ONE
[2019-03-19] MEDS ORDERED: Midazolam* 1 MG/ML 2 ML VIAL (2 MG) ONE (07:51)
[2019-03-19] MEDS ORDERED: fentaNYL* 50 MCG/ML 2 ML VIAL (100 MCG VIAL) ONE (07:55)
--- NOTE | 2019-03-19 09:07 | OP ---
OPERATIVE REPORT: DATE OF OPERATION: 03/19/19 - [facility] DATE OF : 48 SURGEON: Yousif Mcdonough MD TANKER SERVICEMAN: None. ANESTHESIA: Topical with intravenous sedation. PRE-OP DIAGNOSIS: Cataract with astigmatism, right eye. POST-OP DIAGNOSIS: Cataract with astigmatism, right eye. OPERATIVE PROCEDURE: Phacoemulsification and cataract extraction with posterior chamber intraocular lens implant (Toric), right eye. COMPLICATIONS: None. BLOOD LOSS: None. OPERATIVE FINDINGS: The patient was brought to the operating room and received intervenous sedation. A drop of tetracaine was placed in her right eye. The patient was prepped and draped in the usual sterile fashion for ophthalmic surgery, and attention was directed to the right eye where a speculum was placed. A paracentesis was created at the 11 o'clock position. 0.1 cc of 1% preservative- free lidocaine was injected into the anterior chamber followed by DisCoVisc. The eye was digitally stabilized while a 2.75-mm keratome was used to create a triplanar clear corneal incision at the 9 o'clock position. A continuous curvilinear capsulorrhexis was created using a cystotome and Utrata forceps. BSS on a cannula was used to hydrodissect the lens from the capsule. Phacoemulsification was performed in a [id number]-[id number] technique to create 4 fragments, which were removed. Residual cortical material was removed with irrigation and aspiration. The capsular bag was polished. Provisc was used to inflate the capsular bag and the anterior chamber. The eye pressure was measured and found to be appropriate. The surface of the eye was lubricated with BSS. The ORA device was employed. An SN6AT3 16.0 diopter lens was chosen. The reticle on the ORA helped guide the axial alignment of the lens. The lens was placed and dialed into the appropriate position. A Sinskey hook remained in the eye for the paracentesis to stabilize the lens while irrigation and aspiration was performed to remove viscoelastic from the eye. The Sinskey hook was removed. BSS on a cannula was used to hydrate the corneal stroma and seal the wound. At the end of the case, the pupil was round. The lens was centered, stable, and axially aligned. The eye pressure appeared normal and the wound was watertight. The speculum was removed. Topical Maxitrol ointment was placed on the surface of the eye. The eye was closed, patched, and shielded , and the patient was sent to the recovery room in stable condition with postop instructions and followup appointment given. [id number]/[facility] #: [id number] JACKIE
[2019-03-19 09:10] VITALS: BP 121/74
[2019-03-19] MEDS ORDERED: Tetracaine 0.5% OPTH.SOL 4 ML* 1 DROP BTL ONE (11:10)
[2019-03-19] MEDS ORDERED: Lidocaine 1% MPF ** 5 ML VIAL ONE (11:10)
[2019-03-19] MEDS ORDERED: Phenylephrine OPHTH SOL 2.5%* 2 ML ONE (11:10)
[2019-03-19] MEDS ORDERED: Tropicamide 1% OPTH.SOL* BTL ONE (11:10)
[2019-03-19] MEDS ORDERED: Cyclopentolate 1% OPTH.SOL* 2 ML BTL ONE (11:10)
[2019-03-19] MEDS ORDERED: Neomycin/Polymy/Dex OPHTH.OIN* 3.5 GM ONE (11:10)
[2019-03-19] MEDS ORDERED: Ketorolac 0.5% OPHTH (NF) 0.5 % 5 ML BTL ONE (11:10)
== END 2019-03-19 08:57 | disposition home or self-care (01) ==
LOC: OREAST 06:58
PROVIDERS: ATTEND Ophthalmology
DX: H25.11 Age-related nuclear cataract, right eye (principal); G47.33 Obstructive sleep apnea (adult) (pediatric); M19.90 Unspecified osteoarthritis, unspecified site; E78.00 Pure hypercholesterolemia, unspecified; Z86.718 Personal history of other venous thrombosis and embolism; Z79.01 Long term (current) use of anticoagulants; E03.9 Hypothyroidism, unspecified; G45.4 Transient global amnesia
CPT/HCPCS: A9270-GY; J2250; J3010; V2787

== ENCOUNTER 2019-03-26 06:31 | Day surgery (SDC) | payer MEDICARE, BC ==
[~2019-03-26 06:31] MED LIST changes: +Acetaminophen TAB* 325 MG PO PRN
[2019-03-26] MEDS ORDERED: fentaNYL* 50 MCG/ML 2 ML VIAL (100 MCG VIAL) ONE (07:23)
[2019-03-26] MEDS ORDERED: Midazolam* 1 MG/ML 2 ML VIAL (2 MG) ONE (07:23)
[2019-03-26] MEDS ORDERED: Neomycin/Polymy/Dex OPHTH.OIN* 3.5 GM ONE (08:01)
[2019-03-26] MEDS ORDERED: Tropicamide 1% OPTH.SOL* BTL ONE (08:01)
[2019-03-26] MEDS ORDERED: Ketorolac 0.5% OPHTH (NF) 0.5 % 5 ML BTL ONE (08:01)
[2019-03-26] MEDS ORDERED: Tetracaine 0.5% OPTH.SOL 4 ML* 1 DROP BTL ONE (08:01)
[2019-03-26] MEDS ORDERED: Phenylephrine OPHTH SOL 2.5%* 2 ML ONE (08:01)
[2019-03-26] MEDS ORDERED: Lidocaine 1% MPF ** 5 ML VIAL ONE (08:01)
[2019-03-26] MEDS ORDERED: Cyclopentolate 1% OPTH.SOL* 2 ML BTL ONE (08:01)
[2019-03-26 08:29] VITALS: BP 120/56
--- NOTE | 2019-03-26 13:23 | OP ---
DATE OF OPERATION: 03/26/19 [facility] DATE OF : 48 SURGEON: Yousif Mcdonough MD CONCRETE PUMP OPERATOR: None. ANESTHESIA: Topical with intravenous sedation. PRE-OP DIAGNOSIS: Cataract with astigmatism, left eye. POST-OP DIAGNOSIS: Cataract with astigmatism, left eye. OPERATIVE PROCEDURE: Phacoemulsification and cataract extraction with posterior chamber toric intraocular lens implant, left eye. COMPLICATIONS: None. BLOOD LOSS: None. DESCRIPTION OF PROCEDURE: The patient was brought to the operating room and received intravenous sedation. A drop of tetracaine was placed in her left eye. The patient was prepped and draped in the usual sterile fashion for ophthalmic surgery and attention was directed to the left eye where a speculum was placed. A paracentesis was created at the 6 o'clock position. 0.1 cc of 1% preservative-free lidocaine was injected into the anterior chamber followed by DisCoVisc. The eye was digitally stabilized while a 2.75-mm keratome was used to create a triplanar clear corneal incision at the 3 o'clock position. A continuous curvilinear capsulorrhexis was created with a cystotome and Utrata forceps. BSS on a cannula was used to hydrodissect the lens from the capsule. Phacoemulsification was performed in a gagnqj-phu-ojaenos technique to create 4 fragments, which were removed. Residual cortical material was removed with irrigation and aspiration. Provisc was used to inflate the capsular bag. The ORA device was employed to help guide lens choice. An SN6AT3 16.5 diopter lens was chosen. The reticle on the ORA helped guide lens alignment to 15 degrees. The lens was folded and inserted into the capsular bag. It was rotated to the appropriate axial alignment. The lens was stabilized with a Sinskey hook to the paracentesis while irrigation and aspiration were performed to remove viscoelastic from the eye. The Sinskey hook was removed. BSS on a cannula was used to hydrate the corneal stoma and seal the wound. At the end of the case, the pupil was round and the lens was centered, stable and axially aligned. The eye pressure appeared normal and the wound was watertight. The speculum was removed and topical Maxitrol ointment was placed on the surface of the eye. The eye was closed, patched, and shielded and the patient was sent to the recovery room in stable condition with postoperative instructions and followup appointment given. [id number]/[facility] #: [id number] JACKIE
== END 2019-03-26 08:15 | disposition home or self-care (01) ==
LOC: OREAST 06:31
PROVIDERS: ATTEND Ophthalmology
DX: H25.12 Age-related nuclear cataract, left eye (principal); H52.202 Unspecified astigmatism, left eye; M19.90 Unspecified osteoarthritis, unspecified site; E78.00 Pure hypercholesterolemia, unspecified; G47.33 Obstructive sleep apnea (adult) (pediatric); E78.5 Hyperlipidemia, unspecified; E03.9 Hypothyroidism, unspecified
CPT/HCPCS: A9270-GY; J2250; J3010; V2787

== ENCOUNTER 2021-03-04 06:57 | Observation (INO) ==
[~2021-03-04 06:57] MED LIST changes: -Acetaminophen TAB* 325 MG PO PRN; +Buffered Lidocaine 1% SYRIN 1 ml INTRADERM ONE; -Buffered Lidocaine 1% SYRIN* 1 ML/SYRINGE INTRADERM ONE; +Lactated Ringers 1000 ml BAG 1,000 ML IV SCH
[2021-03-04] MEDS ORDERED: Midazolam 2 mg/2 ml VIAL 1 mg/ml 2 ml VIAL (2 mg) ONE ×2 (07:47→08:29)
[2021-03-04] MEDS ORDERED: Bupivacaine 0.5% SDV PF 30ML VIAL ONE (07:47)
[2021-03-04] MEDS ORDERED: Dexamethasone IV 4 MG/ML VIAL 1 ml VIAL ONE (07:47)
[2021-03-04] MEDS ORDERED: ceFAZolin 2 GM in NS PREMIX 2 GM/100 ML BAG IVPB ONE (08:03)
[2021-03-04] MEDS ORDERED: Buffered Lidocaine 1% SYRIN 1 ml INTRADERM ONE (08:03)
[2021-03-04] MEDS ORDERED: Phenylephrine IV 10 MG/ML 1 ml VIAL ONE (08:28)
[2021-03-04] MEDS ORDERED: Lidocaine 1% MPF 5 ML VIAL ONE (08:47)
[2021-03-04] MEDS ORDERED: fentaNYL 250 mcg/5 ml 50 MCG/ML 5 ml VIAL (250 MCG) ONE (08:53)
[2021-03-04] MEDS ORDERED: Propofol 10 MG/ML 20 ML BTL ONE ×3 (08:53→12:05)
[2021-03-04] MEDS ORDERED: ROPIVACAINE 5 MG/ML 30 ML BTL (0.5%) ONE (09:44)
[2021-03-04] MEDS ORDERED: Rocuronium 50 mg VIAL 10 mg/ml 5 ml VIAL (50 mg) ONE ×2 (09:58→11:02)
[2021-03-04] MEDS ORDERED: HYDROmorphone 1 MG/1 ML SYRINGE ONE ×2 (10:37→14:59)
[2021-03-04] MEDS ORDERED: Ondansetron ODT 4 mg TAB 4 MG TAB PO PRN (10:53)
[2021-03-04] MEDS ORDERED: Morphine 2 MG/ML SYRINGE IV PRN (10:53)
[2021-03-04] MEDS ORDERED: Lactulose 30 ml UDC PO PRN (10:53)
[2021-03-04] MEDS ORDERED: diPHENhydraMINE 25 mg TAB PO PRN (10:53)
[2021-03-04] MEDS ORDERED: diPHENhydraMINE IV 50 MG/ML 1 ml VIAL (BENADRYL) IV PRN ×2 (10:53→13:28)
[2021-03-04] MEDS ORDERED: Ondansetron 4 mg VIAL 2 MG/ML 2 ml VIAL IV PRN (10:53)
[2021-03-04] MEDS ORDERED: Magnesium Hydroxide LIQ 30 ML UDC PO PRN (10:53)
[2021-03-04] MEDS ORDERED: Ondansetron 4 mg VIAL 2 MG/ML 2 ml VIAL ONE (12:03)
[2021-03-04] MEDS ORDERED: fentaNYL 100 mcg/2 ml 50 MCG/ML VIAL ONE (13:04)
[2021-03-04] MEDS: fentaNYL 100 mcg/2 ml 50 MCG/ML VIAL IV PRN ×5 (13:07→14:29)
[2021-03-04] MEDS ORDERED: Naloxone 0.4 mg VIAL 0.4 mg/ml 1 ml VIAL IV PRN (13:28)
[2021-03-04] MEDS ORDERED: DiMENhydriNATE IV 50 mg/ml 1 ml VIAL IV PUSH PRN (13:28)
[2021-03-04] MEDS: HYDROmorphone 1 MG/1 ML SYRINGE IV PRN ×2 (14:59→15:10)
[2021-03-04] MEDS: ceFAZolin 1 GM ADVAN 1 GM in NS 0.9% 50 ML 50 ML IVPB SCH (18:28)
[2021-03-04] MEDS: Lactated Ringers 1000 ml BAG 1,000 ML IV SCH (19:34)
[2021-03-04] MEDS: Magnesium Hydroxide LIQ 30 ML UDC PO SCH (21:36)
[2021-03-05] MEDS: ceFAZolin 1 GM ADVAN 1 GM in NS 0.9% 50 ML 50 ML IVPB SCH ×2 (02:06→09:16)
[2021-03-05 07:19] LABS: Hematocrit 35 % (35-47); Hemoglobin 11.4 g/dL (12.0-16.0); Mean Platelet Volume 9.6 fL (7.4-10.4); Platelet Count 144 10^3/uL (150-450)
[2021-03-05] MEDS: Lactated Ringers 1000 ml BAG 1,000 ML IV SCH (07:29)
[2021-03-05 07:41] LABS: Calcium 8.6 mg/dL (8.6-10.3); Potassium 4.9 mmol/L (3.5-5.0)
[2021-03-05 07:47] LABS: EGFR African American 85.3 (>60); EGFR Non-African American 70.5 (>60)
[2021-03-05] MEDS ORDERED: Aspirin EC 81 mg TAB.EC (enteric coated) PO SCH (09:00)
[2021-03-05] MEDS ORDERED: Vitamin THERAPEUTIC TAB PO SCH (09:00)
[2021-03-05] MEDS: Magnesium Hydroxide LIQ 30 ML UDC PO SCH (09:09)
[2021-03-05 12:28] VITALS: BP 120/58
== END 2021-03-05 14:30 | disposition home or self-care (01) ==
LOC: INTOOBSV 06:57 → AA 06:57 → SSU 15:58
PROVIDERS: ADMIT Orthopaedic Surgery Adult Reconstructive Orthopaedic Surgery; ATTEND Orthopaedic Surgery Adult Reconstructive Orthopaedic Surgery